=== PATIENT | male | born 1930 | race Caucasian/White ===

== ENCOUNTER 2018-06-26 10:18 | Outpatient (CLI) | payer MEDICARE ==
--- NOTE | 2018-06-26 11:24 | SJPRAD ---
PA AND LATERAL CHEST: History: Cough, shortness of breath. Comparison: 11-04-14 FINDINGS/IMPRESSION: The heart is enlarged. The aorta is tortuous. There is consolidation in the left lower lobe with acco mpanying bilateral pleural effusions, left larger than right. No pneumothoraces are seen. POS: OFF
[2018-06-26 16:15] LABS: #Lymphocytes 0.9 thou/uL (1.20-3.40); #Monocytes 0.4 thou/uL (0.11-0.59); #Neutrophils 4.3 thou/uL (1.40-6.50); %Basophils 0.8 % (0.0-1.0); %Eosinophils 0.6 % (0.0-10.0); %Lymphocytes 16.3 % (21.0-51.0); %Monocytes 7.3 % (0.0-10.0); Hemoglobin 12.9 g/dL (14.0-18.0); Mean Corpuscular HGB CONC 30.6 g/dL (32.0-36.0); Mean Corpuscular Hemoglobin 30.2 pg (27.0-31.0); Mean Corpuscular Volume 98.6 fL (78.0-98.0); Mean Platelet Volume 7.9 fL (7.4-10.4); Platelet Count 266 thou/uL (130-400); RBC Distribution Width 13.1 % (11.5-14.5); Red Blood Cell (RBC) Count 4.28 mill/uL (4.70-6.10); White Blood Cell (WBC) Count 5.7 thou/uL (4.8-10.8)
[2018-06-26 16:34] LABS: ALT (SGPT) 14 U/L (8-55); AST (SGOT) 27 U/L (5-34); Albumin 4.1 g/dL (3.4-4.8); Alkaline Phosphatase 162 U/L (40-150); Anion Gap 13 mmol/L (10-20); BUN (Urea Nitrogen) 9 mg/dL (8.4-25.7); Bilirubin, Total 0.6 mg/dL (0.2-1.2); Calc. Creatinine Clearance 0 mL/min (70-130); Calcium 9.5 mg/dL (7.8-10.44); Carbon Dioxide 31 mmol/L (23-31); Chloride 97 mmol/L (98-107); Estimated GFR-MDRD 81; Globulin 3.5 g/dL (2.4-3.5); Glucose 93 mg/dL (83-110); Potassium 4.3 mmol/L (3.5-5.1); Protein, Total 7.6 g/dL (5.8-8.1); Sodium 137 mmol/L (136-145)
== END 2018-06-26 10:19 | disposition home or self-care (01) ==
LOC: MWLC RAD 10:18
PROVIDERS: ATTEND Family Medicine
DX: R05 Cough (principal); R06.02 Shortness of breath; I51.7 Cardiomegaly; Q25.46 Tortuous aortic arch; J90 Pleural effusion, not elsewhere classified
CPT/HCPCS: 80053; 83880; 85025

== ENCOUNTER 2018-08-28 09:32 | Inpatient (IN) | payer MEDICARE ==
[~2018-08-28 09:32] MED LIST: ISOVUE-370 76%-LOCM 1 ML ONE
[2018-08-28 10:11] LABS: #Eosinphils 0.1 thou/uL (0.0-0.7); #Monocytes 0.6 thou/uL (0.11-0.59); %Basophils 0.3 % (0.0-1.0); %Eosinophils 1.7 % (0.0-10.0); %Lymphocytes 15.4 % (21.0-51.0); %Monocytes 8.8 % (0.0-10.0); %Neutrophils 73.9 % (42.0-75.0); Hemoglobin 12.8 g/dL (14.0-18.0); Mean Corpuscular HGB CONC 32.7 g/dL (32.0-36.0); Mean Corpuscular Hemoglobin 30.5 pg (27.0-31.0); Mean Corpuscular Volume 93.3 fL (78.0-98.0); Mean Platelet Volume 7.6 fL (7.4-10.4); Platelet Count 244 thou/uL (130-400); RBC Distribution Width 13.1 % (11.5-14.5); Red Blood Cell (RBC) Count 4.21 mill/uL (4.70-6.10); White Blood Cell (WBC) Count 6.8 thou/uL (4.8-10.8)
[2018-08-28] MEDS ORDERED: HYDROcodone/Acetaminophen 7.5/325 mg Tablet ONE ×2 (10:25→10:31)
[2018-08-28 10:37] LABS: ALT (SGPT) 14 U/L (8-55); AST (SGOT) 32 U/L (5-34); Alkaline Phosphatase 159 U/L (40-150); Anion Gap 14 mmol/L (10-20); BUN (Urea Nitrogen) 13 mg/dL (8.4-25.7); Calc. Creatinine Clearance 0 mL/min (70-130); Calcium 9.9 mg/dL (7.8-10.44); Carbon Dioxide 31 mmol/L (23-31); Chloride 96 mmol/L (98-107); Estimated GFR-MDRD 81; Globulin 3.8 g/dL (2.4-3.5); Glucose 86 mg/dL (83-110); Potassium 4.8 mmol/L (3.5-5.1); Protein, Total 7.8 g/dL (5.8-8.1); Sodium 136 mmol/L (136-145)
[2018-08-28 10:51] LABS: CKMB 3.6 ng/mL (0-6.6)
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
[2018-08-28 13:48] LABS: Troponin I 0.038 ng/mL (< 0.028)
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
[2018-08-28 16:33] LABS: Troponin I 0.045 ng/mL (< 0.028)
[2018-08-28] MEDS ORDERED: Nitroglycerin 0.4 MG TAB (25 Tab Bottle) PO PRN (18:39)
--- NOTE | 2018-08-28 22:50 | ULT ---
CAROTID DOPPLER: Date: 08/28/18 Ultrasound Doppler study is performed on extracranial carotid arteries. Color Doppler with spectral a nalysis and velocity recordings obtained. INDICATION: Syncope. Blackout. FINDINGS: Ultrasound images show echogenic plaque in both extracranial carotid systems. Velocity records are wi thin normal range. No evidence of hemodynamically significant stenosis identified. The vertebrals are not identified. IMPRESSION: Echogenic plaque seen bilaterally. No evidence of hemodynamically significant stenosis identified. POS: [facility]
[2018-08-29] MEDS: traMADol HCl 50 MG TAB PO PRN ×2 (00:37→22:37)
[2018-08-29] MEDS ORDERED: Aspirin 325 mg Enteric Coated Tablet PO SCH (09:00)
[2018-08-29] MEDS: Rosuvastatin 10 MG TAB PO SCH (11:27)
[2018-08-29] MEDS: Amlodipine 5 MG TAB PO SCH (11:27)
[2018-08-29] MEDS: Aspirin 81 mg Enteric Coated Tablet PO SCH (11:28)
[2018-08-29] MEDS: Tamsulosin HCl 0.4 MG CAP PO SCH (11:28)
[2018-08-29] MEDS: Lisinopril 20 MG TAB PO SCH (11:28)
[2018-08-29 11:43] LABS: #Eosinphils 0.1 thou/uL (0.0-0.7); #Lymphocytes 1.1 thou/uL (1.20-3.40); #Monocytes 0.6 thou/uL (0.11-0.59); %Basophils 0.1 % (0.0-1.0); %Eosinophils 1.8 % (0.0-10.0); %Lymphocytes 16.3 % (21.0-51.0); %Monocytes 8.8 % (0.0-10.0); Mean Corpuscular HGB CONC 32.3 g/dL (32.0-36.0); Mean Corpuscular Hemoglobin 30.2 pg (27.0-31.0); Mean Corpuscular Volume 93.4 fL (78.0-98.0); Mean Platelet Volume 7.5 fL (7.4-10.4); Platelet Count 231 thou/uL (130-400); RBC Distribution Width 13.1 % (11.5-14.5); Red Blood Cell (RBC) Count 4.31 mill/uL (4.70-6.10); White Blood Cell (WBC) Count 6.9 thou/uL (4.8-10.8)
[2018-08-29 11:56] LABS: Anion Gap 13 mmol/L (10-20); BUN (Urea Nitrogen) 13 mg/dL (8.4-25.7); Calc. Creatinine Clearance 70 mL/min (70-130); Calcium 9.6 mg/dL (7.8-10.44); Carbon Dioxide 28 mmol/L (23-31); Chloride 95 mmol/L (98-107); Estimated GFR-MDRD 85; Glucose 108 mg/dL (83-110); Potassium 3.7 mmol/L (3.5-5.1); Sodium 132 mmol/L (136-145)
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
--- NOTE | 2018-08-29 15:04 | PDOC.PN ---
- Subjective Encounter Start Date: 08/29/18 Encounter Start Time: 15:02 Patient lying in bed, he states he is feeling better this morning. He denies chest pain, palpitations, shortness of breath or abdominal pain. He remains with hematoma of right knee and acute on chronic patella fracture. He refused stress test, therefore Dr Leija was consulted for evaluation and recommendations. - Objective Resuscitation Status - Order Detail: 08/28/18 13:30 Resuscitation Status Routine Resuscitation Status: FULL: Full Resuscitation Discussed with: patient MAR Reviewed: Yes Vital Signs & Weight: Vital Signs (12 hours) Temp Pulse Pulse Pulse Resp BP BP 08/29/18 13:06 69 82 146/70 H 08/29/18 12:34 78 18 08/29/18 11:28 136/89 08/29/18 11:27 65 08/29/18 06:50 65 18 08/29/18 03:21 97.8 F 66 20 BP BP Pulse Ox 08/29/18 13:06 184/79 H 08/29/18 12:34 90 L 08/29/18 11:28 08/29/18 11:27 08/29/18 06:50 93 L 08/29/18 03:21 130/63 97 Weight Weight 182 lb 6.4 oz Result Diagrams: 08/29/18 11:15 08/29/18 11:15 Radiology Reviewed by me: Yes Phys Exam - Physical Examination HEENT: moist MMs, oral pharynx no lesions Neck: supple Coarse breath sounds heard bilaterally Cardiovascular: RRR, no rub Gastrointestinal: soft, positive bowel sounds Musculoskeletal: pulses present Edema and hematoma noted right knee with tenderness to palpation. Neurological: normal sensation, moves all 4 limbs Psychiatric: normal affect, A&O x 3 Skin: normal turgor Dx/Plan (1) Atypical chest pain Code(s): R07.89 - OTHER CHEST PAIN Status: Acute (2) Right patella fracture Code(s): S82.001A - UNSP FRACTURE OF RIGHT PATELLA, INIT FOR CLOS FX Status: Acute (3) CAD (coronary artery disease) Code(s): I25.10 - ATHSCL HEART DISEASE OF [place] CORONARY ARTERY W/O ANG PCTRS Status: Acute (4) COPD (chronic obstructive pulmonary disease) Status: Acute (5) HTN (hypertension) Code(s): I10 - ESSENTIAL (PRIMARY) HYPERTENSION Status: Acute (6) Afib Code(s): I48.91 - UNSPECIFIED ATRIAL FIBRILLATION Status: Acute - Plan cont current plan of care, PT/OT * Cardiology and ortho following * Patient may be weight bearing as tolerated with straight leg brace * PT/OT recommending rehab, he is willing to go rehab screen placed * Eliquis on hold due to hematoma, likely hold for 48 hours * Chest pain atypical and likely musculoskeletal per cardiology, therefore stress test cancelled as patient refusing * Continue other home medications * Further disposition pending at this time, SNF vs with PT/OT
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
[2018-08-30] MEDS: Aspirin 81 mg Enteric Coated Tablet PO SCH (09:15)
[2018-08-30] MEDS: Tamsulosin HCl 0.4 MG CAP PO SCH (09:15)
[2018-08-30] MEDS: Amlodipine 5 MG TAB PO SCH (09:15)
[2018-08-30] MEDS: Rosuvastatin 10 MG TAB PO SCH (09:15)
[2018-08-30] MEDS: Lisinopril 20 MG TAB PO SCH (09:15)
[2018-08-30] MEDS: traMADol HCl 50 MG TAB PO PRN (11:03)
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
--- NOTE | 2018-08-30 13:35 | RAD ---
EXAM: Single view of the chest HISTORY: Chest pain; shortness of breath COMPARISON: 08/28/2018 FINDINGS: Single view of the chest shows an enlarged but stable cardiomediastinal silhouette. Athero sclerotic calcifications are seen in the aorta. There is no evidence of consolidation, mass, or pleural effusion. The bones are unremarkable. IMPRESSION: Cardiomegaly without evidence of acute cardiopulmonary disease
[2018-08-30 16:47] LABS: Troponin I 0.026 ng/mL (< 0.028)
[2018-08-30 19:55] LABS: Troponin I 0.036 ng/mL (< 0.028)
[2018-08-30] MEDS: guaiFENesin/DM ER PO SCH (20:16)
[2018-08-31] MEDS: traMADol HCl 50 MG TAB PO PRN ×2 (04:19→12:03)
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
[2018-08-31] MEDS: guaiFENesin/DM ER PO SCH ×2 (09:53→20:48)
[2018-08-31] MEDS: Tamsulosin HCl 0.4 MG CAP PO SCH (09:53)
[2018-08-31] MEDS: Lisinopril 20 MG TAB PO SCH (09:54)
[2018-08-31] MEDS: Rosuvastatin 10 MG TAB PO SCH (09:54)
[2018-08-31] MEDS: Amlodipine 5 MG TAB PO SCH (09:55)
[2018-08-31] MEDS: Aspirin 81 mg Enteric Coated Tablet PO SCH (09:55)
--- NOTE | 2018-08-31 10:51 | PRG ---
DATE OF SERVICE: 08/31/2018 SUBJECTIVE: Continuing to follow Mr. Razo for his knee hematoma. PHYSICAL EXAMINATION: He still has some bruising and a small blister directly over the patella, but it does not appear as tense as a couple of days ago. There has been no significant interval change from today since initial consultation. IMPRESSION: Acute patella fracture with subdermal hematoma, but intact extensor mechanism. PLAN: Continue long-leg immobilizer and continue to follow skin. Try not to rupture his blister at this point and allow for healing and we will see the patient back in clinic in 3 to 4 days from discharge and at regular intervals to followup his skin. No surgical plans at this point. Job ID: [id number]
[2018-08-31] MEDS: Apixaban 5 MG TAB PO SCH (20:48)
[2018-09-01] MEDS: Amlodipine 5 MG TAB PO SCH (08:23)
[2018-09-01] MEDS: Lisinopril 20 MG TAB PO SCH (08:24)
[2018-09-01] MEDS: Apixaban 5 MG TAB PO SCH ×2 (08:24→20:03)
[2018-09-01] MEDS: Tamsulosin HCl 0.4 MG CAP PO SCH (08:25)
[2018-09-01] MEDS: Aspirin 81 mg Enteric Coated Tablet PO SCH (08:25)
[2018-09-01] MEDS: guaiFENesin/DM ER PO SCH ×2 (08:25→20:03)
[2018-09-01] MEDS: Rosuvastatin 10 MG TAB PO SCH ×2 (08:31)
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
[2018-09-01] MEDS: traMADol HCl 50 MG TAB PO PRN (20:04)
[2018-09-02] MEDS: traMADol HCl 50 MG TAB PO PRN (00:57)
[2018-09-02 07:32] LABS: #Basophils 0.1 thou/uL (0.0-0.2); #Eosinphils 0.1 thou/uL (0.0-0.7); #Lymphocytes 0.7 thou/uL (1.20-3.40); #Monocytes 0.7 thou/uL (0.11-0.59); #Neutrophils 4.5 thou/uL (1.40-6.50); %Basophils 0.8 % (0.0-1.0); %Eosinophils 1.7 % (0.0-10.0); %Lymphocytes 11.5 % (21.0-51.0); Hemoglobin 11.9 g/dL (14.0-18.0); Mean Corpuscular HGB CONC 33.5 g/dL (32.0-36.0); Mean Corpuscular Hemoglobin 30.8 pg (27.0-31.0); Mean Platelet Volume 7.7 fL (7.4-10.4); Platelet Count 242 thou/uL (130-400); RBC Distribution Width 13.1 % (11.5-14.5); Red Blood Cell (RBC) Count 3.88 mill/uL (4.70-6.10); White Blood Cell (WBC) Count 6.1 thou/uL (4.8-10.8)
[2018-09-02 07:48] LABS: ALT (SGPT) 12 U/L (8-55); AST (SGOT) 26 U/L (5-34); Albumin 3.3 g/dL (3.4-4.8); Alkaline Phosphatase 160 U/L (40-150); Anion Gap 14 mmol/L (10-20); BUN (Urea Nitrogen) 19 mg/dL (8.4-25.7); Bilirubin, Total 0.9 mg/dL (0.2-1.2); Calc. Creatinine Clearance 75 mL/min (70-130); Calcium 9.1 mg/dL (7.8-10.44); Carbon Dioxide 25 mmol/L (23-31); Chloride 91 mmol/L (98-107); Estimated GFR-MDRD Greater than 90; Globulin 3.5 g/dL (2.4-3.5); Glucose 94 mg/dL (83-110); Magnesium 1.7 mg/dL (1.6-2.6); Phosphorus 3.4 mg/dL (2.3-4.7); Potassium 4.7 mmol/L (3.5-5.1); Protein, Total 6.8 g/dL (5.8-8.1); Sodium 125 mmol/L (136-145)
[2018-09-02] MEDS: Tamsulosin HCl 0.4 MG CAP PO SCH (09:25)
[2018-09-02] MEDS: Amlodipine 5 MG TAB PO SCH (09:25)
[2018-09-02] MEDS: Rosuvastatin 10 MG TAB PO SCH (09:26)
[2018-09-02] MEDS: Aspirin 81 mg Enteric Coated Tablet PO SCH (09:26)
[2018-09-02] MEDS: Apixaban 5 MG TAB PO SCH ×2 (09:26→22:45)
[2018-09-02] MEDS: Lisinopril 20 MG TAB PO SCH (09:26)
[2018-09-02] MEDS: guaiFENesin/DM ER PO SCH ×2 (09:26→22:45)
[2018-09-02 11:08] LABS: Bilirubin Negative (Negative); Blood, Urine Moderate (Negative); Clarity TURBID (Clear); Glucose, Urine (Dipstick) Negative (Negative); Leukocyte Large (Negative); Nitrite Negative (Negative); Protein, Urine (Dipstick) Negative (Neg-Trace); Specific Gravity, Urine 1.015 (1.002-1.036); pH, Urine 5.5 (5.0-9.0)
[2018-09-02 11:11] LABS: Bacteria/HPF 4+ HPF (None Seen); Hyaline Casts/LPF 0-3 HYALINE CAST LPF (0-3 Hyaline); Pathc Cast-AUWi Flag 0.68 (0-2.49); Squamous Epithelial None Seen HPF (0-3)
--- NOTE | 2018-09-02 11:30 | PDOC.PN ---
- Subjective Encounter Start Date: 09/02/18 Encounter Start Time: 09:30 Subjective: no sob or palpitations -: knee pain is better - Objective Resuscitation Status - Order Detail: 08/28/18 13:30 Resuscitation Status Routine Resuscitation Status: FULL: Full Resuscitation Discussed with: ying LIZAMA Reviewed: Yes Vital Signs & Weight: Vital Signs (12 hours) Temp Pulse Resp BP BP Pulse Ox 09/02/18 09:26 111/59 L 09/02/18 09:25 71 09/02/18 08:00 71 16 09/02/18 07:50 97.7 F 82 18 135/63 92 L 09/02/18 03:19 98.0 F 71 20 117/56 L 92 L 09/02/18 00:55 84 20 92 L Weight Weight 184 lb 1 oz I&O: 09/01/18 09/02/18 09/03/18 06:59 06:59 06:59 Intake Total 1560 1200 Output Total 1050 850 Balance 510 350 Result Diagrams: 09/02/18 07:03 09/02/18 07:03 Phys Exam - Physical Examination HEENT: PERRLA, moist MMs Neck: no JVD, supple Respiratory: no wheezing rales+ Cardiovascular: no significant murmur, irregular Gastrointestinal: soft, non-tender, positive bowel sounds Musculoskeletal: pulses present, edema present Neurological: non-focal, moves all 4 limbs Psychiatric: A&O x 3 Dx/Plan (1) Hyponatremia Code(s): E87.1 - HYPO-OSMOLALITY AND HYPONATREMIA Status: Acute (2) Afib Code(s): I48.91 - UNSPECIFIED ATRIAL FIBRILLATION Status: Chronic Qualifiers: Atrial fibrillation type: chronic Qualified Code(s): I48.2 - Chronic atrial fibrillation (3) CAD (coronary artery disease) Code(s): I25.10 - ATHSCL HEART DISEASE OF [place] CORONARY ARTERY W/O ANG PCTRS Status: Chronic Qualifiers: Coronary Disease-Associated Artery/Lesion type: [place] artery [place] vs. transplanted heart: [place] heart Associated angina: without angina Qualified Code(s): I25.10 - Atherosclerotic heart disease of [place] coronary artery without angina pectoris (4) COPD (chronic obstructive pulmonary disease) Status: Chronic Qualifiers: COPD type: unspecified COPD Qualified Code(s): J44.9 - Chronic obstructive pulmonary disease, unspecified (5) HTN (hypertension) Code(s): I10 - ESSENTIAL (PRIMARY) HYPERTENSION Status: Chronic Qualifiers: Hypertension type: essential hypertension Qualified Code(s): I10 - Essential (primary) hypertension (6) Right patella fracture Code(s): S82.001A - UNSP FRACTURE OF RIGHT PATELLA, INIT FOR CLOS FX Status: Acute Qualifiers: Encounter type: subsequent encounter Fracture type: closed (7) Chronic anticoagulation Code(s): Z79.01 - PETAL SHAPER HAND (CURRENT) USE OF ANTICOAGULANTS Status: Chronic - Plan has heart rates dip down to 40's, made aware, no intervention -: to mobilize per ortho advice -: on asp, eliquis, crestor, nebs, change lisinopril to 10mg bid -: add lasix for vol overload and hypnatremia, bmp in am -: restrict oral fluid intake to 1200ml/day * . await rehab placement, suggest ?swing bed if ok with ortho. Review of Systems - Medications/Allergies Allergies/Adverse Reactions: Allergies Allergy/AdvReac Type Severity Reaction Status Date / Time No Known Allergies Allergy Unverified 08/28/18 16:56 Medications: Current Medications Albuterol/Ipratropium (Duoneb) 3 ml NEB [id number] [facility] Last Admin: 09/02/18 08:00 Dose: 3 ml Amlodipine Besylate (Norvasc) 5 mg PO DAILY [facility] Last Admin: 09/02/18 09:25 Dose: 5 mg Apixaban (Eliquis) 5 mg PO BID [facility] Last Admin: 09/02/18 09:26 Dose: 5 mg Aspirin (Ecotrin) 81 mg PO DAILY [facility] Last Admin: 09/02/18 09:26 Dose: 81 mg Furosemide (Lasix) 20 mg SLOW IVP 0600,1400 [facility] Guaifenesin/Dextromethorphan (Mucinex Dm) 1 tab PO Q12HR [facility] Last Admin: 09/02/18 09:26 Dose: 1 tab Lisinopril (Zestril) 10 mg PO BID [facility] Nitroglycerin (Nitrostat) 0.4 mg PO Q5MIN PRN PRN Reason: Chest Pain Rosuvastatin Calcium (Crestor) 10 mg PO DAILY [facility] Last Admin: 09/02/18 09:26 Dose: 10 mg Sodium Chloride (Flush - Normal Saline) 10 ml IVF Q12HR [facility] Last Admin: 09/02/18 09:27 Dose: 10 ml Tamsulosin HCl (Flomax) 0.4 mg PO DAILY [facility] Last Admin: 09/02/18 09:25 Dose: 0.4 mg Tramadol HCl (Ultram) 50 mg PO Q4H PRN PRN Reason: Pain Last Admin: 09/02/18 00:57 Dose: 50 mg
[2018-09-02] MEDS: Furosemide 20 MG/2 ML VIAL SLOW IVP SCH (16:07)
[2018-09-02] MEDS ORDERED: Lisinopril 10 MG TAB PO SCH (21:00)
[2018-09-03] MEDS: traMADol HCl 50 MG TAB PO PRN (02:44)
[2018-09-03 05:28] LABS: Anion Gap 10 mmol/L (10-20); BUN (Urea Nitrogen) 19 mg/dL (8.4-25.7); Calc. Creatinine Clearance 74 mL/min (70-130); Calcium 9.3 mg/dL (7.8-10.44); Carbon Dioxide 29 mmol/L (23-31); Chloride 89 mmol/L (98-107); Estimated GFR-MDRD 89; Glucose 110 mg/dL (83-110); Potassium 4.3 mmol/L (3.5-5.1); Sodium 124 mmol/L (136-145)
[2018-09-03] MEDS: Furosemide 20 MG/2 ML VIAL SLOW IVP SCH (06:57)
[2018-09-03] MEDS: Tamsulosin HCl 0.4 MG CAP PO SCH (10:00)
[2018-09-03] MEDS: Apixaban 5 MG TAB PO SCH ×2 (10:00→21:23)
[2018-09-03] MEDS: Rosuvastatin 10 MG TAB PO SCH (10:00)
[2018-09-03] MEDS: guaiFENesin/DM ER PO SCH ×2 (10:00→21:23)
[2018-09-03] MEDS: Aspirin 81 mg Enteric Coated Tablet PO SCH (10:00)
[2018-09-03] MEDS: Amlodipine 5 MG TAB PO SCH (10:01)
[2018-09-03] MEDS: Lisinopril 5 MG TAB PO SCH (10:03)
--- NOTE | 2018-09-03 13:59 | PDOC.PN ---
- Subjective Encounter Start Date: 09/03/18 Encounter Start Time: 09:20 Subjective: awake, no sob or palp -: wants to stay around [facility] if possible for placement - Objective Resuscitation Status - Order Detail: 08/28/18 13:30 Resuscitation Status Routine Resuscitation Status: FULL: Full Resuscitation Discussed with: patient DL Reviewed: Yes Vital Signs & Weight: Vital Signs (12 hours) Temp Pulse Resp BP BP Pulse Ox 09/03/18 10:26 95 09/03/18 10:25 96 16 09/03/18 10:03 61 127/60 09/03/18 10:01 64 127/60 09/03/18 07:45 97.2 F L 69 18 123/62 97 09/03/18 03:47 97.4 F L 71 20 125/60 94 L Weight Weight 186 lb 11.2 oz I&O: 09/02/18 09/03/18 09/04/18 06:59 06:59 06:59 Intake Total 1200 1180 Output Total 850 3075 Balance 350 -1895 Result Diagrams: 09/02/18 07:03 09/03/18 04:43 Phys Exam - Physical Examination HEENT: PERRLA, moist MMs Neck: no JVD, supple Respiratory: no wheezing, no rales Cardiovascular: no significant murmur, irregular Gastrointestinal: soft, no distention, positive bowel sounds Musculoskeletal: pulses present, edema present Neurological: non-focal, moves all 4 limbs Psychiatric: normal affect, A&O x 3 Dx/Plan (1) Hyponatremia Code(s): E87.1 - HYPO-OSMOLALITY AND HYPONATREMIA Status: Acute (2) Afib Code(s): I48.91 - UNSPECIFIED ATRIAL FIBRILLATION Status: Chronic Qualifiers: Atrial fibrillation type: chronic Qualified Code(s): I48.2 - Chronic atrial fibrillation (3) CAD (coronary artery disease) Code(s): I25.10 - ATHSCL HEART DISEASE OF [place] CORONARY ARTERY W/O ANG PCTRS Status: Chronic Qualifiers: Coronary Disease-Associated Artery/Lesion type: [place] artery [place] vs. transplanted heart: [place] heart Associated angina: without angina Qualified Code(s): I25.10 - Atherosclerotic heart disease of [place] coronary artery without angina pectoris (4) COPD (chronic obstructive pulmonary disease) Status: Chronic Qualifiers: COPD type: unspecified COPD Qualified Code(s): J44.9 - Chronic obstructive pulmonary disease, unspecified (5) HTN (hypertension) Code(s): I10 - ESSENTIAL (PRIMARY) HYPERTENSION Status: Chronic Qualifiers: Hypertension type: essential hypertension Qualified Code(s): I10 - Essential (primary) hypertension (6) Right patella fracture Code(s): S82.001A - UNSP FRACTURE OF RIGHT PATELLA, INIT FOR CLOS FX Status: Acute Qualifiers: Encounter type: subsequent encounter Fracture type: closed (7) Chronic anticoagulation Code(s): Z79.01 - 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 Has diuresed well last 24hrs around 3lts -: continue asp, lisinopril, norvasc, eliquis, crestor and nebs -: awaiting placement ?rehab, I have suggested swing bed he will think about i -: meds are being optimized by cardiology * . Review of Systems - Medications/Allergies Allergies/Adverse Reactions: Allergies Allergy/AdvReac Type Severity Reaction Status Date / Time No Known Allergies Allergy Unverified 08/28/18 16:56 Medications: Current Medications Albuterol/Ipratropium (Duoneb) 3 ml NEB [id number] [facility] Last Admin: 09/03/18 10:25 Dose: 3 ml Amlodipine Besylate (Norvasc) 5 mg PO DAILY [facility] Last Admin: 09/03/18 10:01 Dose: 5 mg Apixaban (Eliquis) 5 mg PO BID [facility] Last Admin: 09/03/18 10:00 Dose: 5 mg Aspirin (Ecotrin) 81 mg PO DAILY [facility] Last Admin: 09/03/18 10:00 Dose: 81 mg Guaifenesin/Dextromethorphan (Mucinex Dm) 1 tab PO Q12HR [facility] Last Admin: 09/03/18 10:00 Dose: 1 tab Lisinopril (Zestril) 5 mg PO DAILY [facility] Last Admin: 09/03/18 10:03 Dose: 5 mg Nitroglycerin (Nitrostat) 0.4 mg PO Q5MIN PRN PRN Reason: Chest Pain Rosuvastatin Calcium (Crestor) 10 mg PO DAILY [facility] Last Admin: 09/03/18 10:00 Dose: 10 mg Sodium Chloride (Flush - Normal Saline) 10 ml IVF Q12HR [facility] Last Admin: 09/02/18 22:45 Dose: 10 ml Tamsulosin HCl (Flomax) 0.4 mg PO DAILY [facility] Last Admin: 09/03/18 10:00 Dose: 0.4 mg Tramadol HCl (Ultram) 50 mg PO Q4H PRN PRN Reason: Pain Last Admin: 09/03/18 02:44 Dose: 50 mg
[2018-09-03 14:54] LABS: Anion Gap 11 mmol/L (10-20); BUN (Urea Nitrogen) 19 mg/dL (8.4-25.7); Calc. Creatinine Clearance 71 mL/min (70-130); Calcium 9.6 mg/dL (7.8-10.44); Carbon Dioxide 32 mmol/L (23-31); Chloride 87 mmol/L (98-107); Estimated GFR-MDRD 84; Glucose 110 mg/dL (83-110); Potassium 4.6 mmol/L (3.5-5.1); Sodium 125 mmol/L (136-145)
[2018-09-03 14:55] LABS: Uric Acid 4.5 mg/dL (3.5-7.2)
[2018-09-03 20:44] LABS: Anion Gap 12 mmol/L (10-20); BUN (Urea Nitrogen) 19 mg/dL (8.4-25.7); Calc. Creatinine Clearance 76 mL/min (70-130); Calcium 9.3 mg/dL (7.8-10.44); Carbon Dioxide 30 mmol/L (23-31); Chloride 87 mmol/L (98-107); Estimated GFR-MDRD 90; Glucose 109 mg/dL (83-110); Potassium 4.4 mmol/L (3.5-5.1); Sodium 125 mmol/L (136-145)
--- NOTE | 2018-09-03 21:04 | CON ---
DATE OF CONSULTATION: REASON FOR CONSULTATION: Hyponatremia. HISTORY: This is a very pleasant 88-year-old gentleman who has , presented to the hospital with sodium of 132, which decreased to 124. The patient denies headache, numbness, tingling, or weakness. Denies any nausea, vomiting, or chest pain. PAST MEDICAL HISTORY: Significant for hypertension, anemia, coronary artery disease, atrial fibrillation, PCI, COPD, and chronic anticoagulation. HOME MEDICATIONS: List reviewed. HOSPITAL MEDICATIONS: List reviewed. ALLERGIES: REVIEWED. REVIEW OF SYSTEMS: A 15-point review of systems was performed and negative except as noted above. GENERAL: HEAD: NECK: No swelling or lumps. NOSE: No epistaxis or discharge. EYES: No diplopia or pain. 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 NEUROPSYCHIATIC SYSTEMS: No suicidal ideation. No ideation. SKIN: Denies any rash or ulcer. CONSTITUTIONAL: No fever or chills. PHYSICAL EXAMINATION: GENERAL: The patient is awake and alert. VITAL SIGNS: Afebrile, pulse 75, breathing 16, blood pressure 127/62. GENERAL APPEARANCE AND MENTAL STATUS: Fair. HEAD/NECK: Normocephalic. Atraumatic. EYES: EOMI. No deformity. EARS: Clear. No ulcers. NOSE: Intact. No lesions. MOUTH: Clear. No discharge. THROAT: Clear. No exudate. LUNGS: Clear. No crackles. CARDIAC: S1, S2. No rub. ABDOMEN: Benign. Bowel sounds positive. GENITALIA/RECTUM: Rubio absent. BACK/EXTREMITIES: Edema 0+. NEUROLOGICAL: Alert and motor intact. SKIN: LYMPHATICS: LABORATORY DATA: Show sodium 134, creatinine 0.8. ASSESSMENT/RECOMMENDATIONS: 1. Chronic kidney disease stage 2, stable. 2. 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 We would recommend 800 mL fluid restriction and checking sodium at 1600 hours. 3. Anemia, stable. 4. Hypo-osmolality with elevated labs. Job ID: [id number]
[2018-09-04 07:33] LABS: Potassium, Urine 23.7 mmol/L
[2018-09-04 08:28] LABS: Anion Gap 13 mmol/L (10-20); BUN (Urea Nitrogen) 19 mg/dL (8.4-25.7); Calc. Creatinine Clearance 78 mL/min (70-130); Calcium 8.9 mg/dL (7.8-10.44); Carbon Dioxide 27 mmol/L (23-31); Chloride 90 mmol/L (98-107); Estimated GFR-MDRD Greater than 90; Glucose 92 mg/dL (83-110); Potassium 4.8 mmol/L (3.5-5.1); Sodium 125 mmol/L (136-145)
[2018-09-04] MEDS: traMADol HCl 50 MG TAB PO PRN ×3 (09:25→21:17)
[2018-09-04] MEDS: Apixaban 5 MG TAB PO SCH ×2 (09:25→20:49)
[2018-09-04] MEDS: Lisinopril 5 MG TAB PO SCH (09:25)
[2018-09-04] MEDS: Tamsulosin HCl 0.4 MG CAP PO SCH (09:25)
[2018-09-04] MEDS: guaiFENesin/DM ER PO SCH ×2 (09:25→20:49)
[2018-09-04] MEDS: Rosuvastatin 10 MG TAB PO SCH (09:25)
[2018-09-04] MEDS: Aspirin 81 mg Enteric Coated Tablet PO SCH (09:25)
[2018-09-04] MEDS: Amlodipine 5 MG TAB PO SCH (09:25)
--- NOTE | 2018-09-04 11:47 | PDOC.PN ---
- Subjective Encounter Start Date: 09/04/18 Encounter Start Time: 10:30 Subjective: has cough, no sob -: feels better, has not mobilized yet -: counselled to use spirometry - Objective Resuscitation Status - Order Detail: 08/28/18 13:30 Resuscitation Status Routine Resuscitation Status: FULL: Full Resuscitation Discussed with: patient DL Reviewed: Yes Vital Signs & Weight: Vital Signs (12 hours) Temp Pulse Resp BP Pulse Ox 09/04/18 09:25 75 09/04/18 08:00 75 16 90 L 09/04/18 07:45 97.8 F 81 18 145/87 H 98 09/04/18 04:00 98.4 F 84 18 122/58 L 93 L 09/04/18 00:00 80 94/50 L Weight Weight 186 lb 4.8 oz I&O: 09/03/18 09/04/18 09/05/18 06:59 06:59 06:59 Intake Total 1180 760 Output Total 3075 1000 Balance -1895 -240 Result Diagrams: 09/02/18 07:03 09/04/18 04:58 Phys Exam - Physical Examination HEENT: PERRLA, moist MMs Neck: no JVD, supple Respiratory: no wheezing, no rales Cardiovascular: no significant murmur, irregular Gastrointestinal: soft, non-tender, positive bowel sounds Musculoskeletal: pulses present, edema present Neurological: non-focal, moves all 4 limbs Psychiatric: A&O x 3 Dx/Plan (1) Hyponatremia Code(s): E87.1 - HYPO-OSMOLALITY AND HYPONATREMIA Status: Acute (2) Afib Code(s): I48.91 - UNSPECIFIED ATRIAL FIBRILLATION Status: Chronic Qualifiers: Atrial fibrillation type: chronic Qualified Code(s): I48.2 - Chronic atrial fibrillation (3) CAD (coronary artery disease) Code(s): I25.10 - ATHSCL HEART DISEASE OF [place] CORONARY ARTERY W/O ANG PCTRS Status: Chronic Qualifiers: Coronary Disease-Associated Artery/Lesion type: [place] artery [place] vs. transplanted heart: [place] heart Associated angina: without angina Qualified Code(s): I25.10 - Atherosclerotic heart disease of [place] coronary artery without angina pectoris (4) COPD (chronic obstructive pulmonary disease) Status: Chronic Qualifiers: COPD type: unspecified COPD Qualified Code(s): J44.9 - Chronic obstructive pulmonary disease, unspecified (5) HTN (hypertension) Code(s): I10 - ESSENTIAL (PRIMARY) HYPERTENSION Status: Chronic Qualifiers: Hypertension type: essential hypertension Qualified Code(s): I10 - Essential (primary) hypertension (6) Right patella fracture Code(s): S82.001A - UNSP FRACTURE OF RIGHT PATELLA, INIT FOR CLOS FX Status: Acute Qualifiers: Encounter type: subsequent encounter Fracture type: closed (7) Chronic anticoagulation Code(s): Z79.01 - PENITENTIARY (CURRENT) USE OF ANTICOAGULANTS Status: Chronic - Plan hemostable -: hyponatremia per nephrology adv, is on fluid restriction -: awaiting placement to rehab -: continue asp, eliquis, norvasc, lisinopril, nebs and crestor -: flomax, ultram prn. He needs to mobilize per ortho adv with PT * . Review of Systems - Medications/Allergies Allergies/Adverse Reactions: Allergies Allergy/AdvReac Type Severity Reaction Status Date / Time No Known Allergies Allergy Unverified 08/28/18 16:56 Medications: Current Medications Albuterol/Ipratropium (Duoneb) 3 ml NEB [id number] [facility] Last Admin: 09/04/18 08:00 Dose: 3 ml Amlodipine Besylate (Norvasc) 5 mg PO DAILY [facility] Last Admin: 09/04/18 09:25 Dose: 5 mg Apixaban (Eliquis) 5 mg PO BID [facility] Last Admin: 09/04/18 09:25 Dose: 5 mg Aspirin (Ecotrin) 81 mg PO DAILY [facility] Last Admin: 09/04/18 09:25 Dose: 81 mg Guaifenesin/Dextromethorphan (Mucinex Dm) 1 tab PO Q12HR [facility] Last Admin: 09/04/18 09:25 Dose: 1 tab Lisinopril (Zestril) 5 mg PO DAILY [facility] Last Admin: 09/04/18 09:25 Dose: 5 mg Nitroglycerin (Nitrostat) 0.4 mg PO Q5MIN PRN PRN Reason: Chest Pain Rosuvastatin Calcium (Crestor) 10 mg PO DAILY [facility] Last Admin: 09/04/18 09:25 Dose: 10 mg Sodium Chloride (Flush - Normal Saline) 10 ml IVF Q12HR [facility] Last Admin: 09/04/18 09:25 Dose: 10 ml Tamsulosin HCl (Flomax) 0.4 mg PO DAILY [facility] Last Admin: 09/04/18 09:25 Dose: 0.4 mg Tramadol HCl (Ultram) 50 mg PO Q4H PRN PRN Reason: Pain Last Admin: 09/04/18 09:25 Dose: 50 mg
--- NOTE | 2018-09-04 12:48 | PRG ---
DATE OF SERVICE: 09/04/2018 SUBJECTIVE: An 88-year-old gentleman, being seen for hyponatremia. The patient denies any nausea, vomiting, or chest pain. OBJECTIVE: CONSTITUTIONAL: The patient is awake and alert. VITAL SIGNS: Afebrile, pulse 75, breathing 16, and blood pressure 145 . GENERAL APPEARANCE AND MENTAL STATUS: Fair. HEAD/NECK: Normocephalic. Atraumatic. EYES: EOMI. No deformity. EARS: Clear. No ulcers. NOSE: Intact. No lesions. MOUTH: Clear. No discharge. THROAT: Clear. No exudate. LUNGS: Clear. No crackles. CARDIAC: S1, S2. No rub. ABDOMEN: Benign. Bowel sounds positive. GENITALIA/RECTUM: Rubio absent. BACK/EXTREMITIES: Edema 0+. NEUROLOGICAL: Alert and motor intact. SKIN: LYMPHATICS: LABORATORY DATA: Show hemoglobin . Sodium 125. 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 The patient's urine osmolality is still pending. We would recommend 800 mL fluid restriction and follow sodium closely. Job ID: [id number]
[2018-09-04 15:03] LABS: Anion Gap 12 mmol/L (10-20); BUN (Urea Nitrogen) 18 mg/dL (8.4-25.7); Calc. Creatinine Clearance 74 mL/min (70-130); Calcium 9.5 mg/dL (7.8-10.44); Carbon Dioxide 29 mmol/L (23-31); Chloride 88 mmol/L (98-107); Estimated GFR-MDRD 89; Glucose 112 mg/dL (83-110); Potassium 4.5 mmol/L (3.5-5.1); Sodium 124 mmol/L (136-145)
[2018-09-04] MEDS ORDERED: Tolvaptan 15 MG TAB PO SCH (17:45)
[2018-09-05] MEDS: guaiFENesin/DM ER PO SCH ×2 (08:44→21:53)
[2018-09-05] MEDS: Aspirin 81 mg Enteric Coated Tablet PO SCH (08:44)
[2018-09-05] MEDS: Apixaban 5 MG TAB PO SCH ×2 (08:44→21:53)
[2018-09-05] MEDS: Rosuvastatin 10 MG TAB PO SCH (08:44)
[2018-09-05] MEDS: Amlodipine 5 MG TAB PO SCH (08:50)
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
--- NOTE | 2018-09-05 12:11 | PDOC.PN ---
- Subjective Encounter Start Date: 09/05/18 Encounter Start Time: 09:30 Subjective: no chest pain or palp -: feels better -: worked with PT yesterday - Objective Resuscitation Status - Order Detail: 08/28/18 13:30 Resuscitation Status Routine Resuscitation Status: FULL: Full Resuscitation Discussed with: ying LIZAMA Reviewed: Yes Vital Signs & Weight: Vital Signs (12 hours) Temp Pulse Resp BP Pulse Ox 09/05/18 11:14 97.6 F 70 18 97/52 L 100 09/05/18 08:50 72 09/05/18 07:27 72 16 92 L 09/05/18 07:11 97.5 F L 70 18 100/52 L 93 L 09/05/18 04:05 97.7 F 71 18 120/68 97 Weight Weight 183 lb 12.8 oz I&O: 09/04/18 09/05/18 09/06/18 06:59 06:59 06:59 Intake Total 760 1160 Output Total 1000 2420 Balance -240 -1260 Result Diagrams: 09/02/18 07:03 09/04/18 14:11 Phys Exam - Physical Examination HEENT: PERRLA, moist MMs Neck: no JVD, supple Respiratory: no wheezing, no rales rhonchi+ Cardiovascular: RRR, no significant murmur Gastrointestinal: soft, non-tender, positive bowel sounds Musculoskeletal: no edema, pulses present Neurological: non-focal, moves all 4 limbs Dx/Plan (1) Hyponatremia Code(s): E87.1 - HYPO-OSMOLALITY AND HYPONATREMIA Status: Acute (2) Afib Code(s): I48.91 - UNSPECIFIED ATRIAL FIBRILLATION Status: Chronic Qualifiers: Atrial fibrillation type: chronic Qualified Code(s): I48.2 - Chronic atrial fibrillation (3) CAD (coronary artery disease) Code(s): I25.10 - ATHSCL HEART DISEASE OF [place] CORONARY ARTERY W/O ANG PCTRS Status: Chronic Qualifiers: Coronary Disease-Associated Artery/Lesion type: [place] artery [place] vs. transplanted heart: [place] heart Associated angina: without angina Qualified Code(s): I25.10 - Atherosclerotic heart disease of [place] coronary artery without angina pectoris (4) COPD (chronic obstructive pulmonary disease) Status: Chronic Qualifiers: COPD type: unspecified COPD Qualified Code(s): J44.9 - Chronic obstructive pulmonary disease, unspecified (5) HTN (hypertension) Code(s): I10 - ESSENTIAL (PRIMARY) HYPERTENSION Status: Chronic Qualifiers: Hypertension type: essential hypertension Qualified Code(s): I10 - Essential (primary) hypertension (6) Right patella fracture Code(s): S82.001A - UNSP FRACTURE OF RIGHT PATELLA, INIT FOR CLOS FX Status: Acute Qualifiers: Encounter type: subsequent encounter Fracture type: closed (7) Chronic anticoagulation Code(s): Z79.01 - ALF (CURRENT) USE OF ANTICOAGULANTS Status: Chronic - Plan awaiting placement, rehab has denied him, d/w case mgmt and patient -: to mobilize more with PT as tolerated -: continue norvasc, eliquis, asp, nebs, crestor -: is on fluid restriction, flomax at bedtime -: hemostable, watch for sbp * . Review of Systems - Medications/Allergies Allergies/Adverse Reactions: Allergies Allergy/AdvReac Type Severity Reaction Status Date / Time No Known Allergies Allergy Unverified 08/28/18 16:56 Medications: Current Medications Albuterol/Ipratropium (Duoneb) 3 ml NEB [id number] [facility] Last Admin: 09/05/18 07:27 Dose: 3 ml Amlodipine Besylate (Norvasc) 5 mg PO DAILY [facility] Last Admin: 09/05/18 08:50 Dose: 5 mg Apixaban (Eliquis) 5 mg PO BID [facility] Last Admin: 09/05/18 08:44 Dose: 5 mg Aspirin (Ecotrin) 81 mg PO DAILY [facility] Last Admin: 09/05/18 08:44 Dose: 81 mg Guaifenesin/Dextromethorphan (Mucinex Dm) 1 tab PO Q12HR [facility] Last Admin: 09/05/18 08:44 Dose: 1 tab Nitroglycerin (Nitrostat) 0.4 mg PO Q5MIN PRN PRN Reason: Chest Pain Rosuvastatin Calcium (Crestor) 10 mg PO DAILY [facility] Last Admin: 09/05/18 08:44 Dose: 10 mg Sodium Chloride (Flush - Normal Saline) 10 ml IVF Q12HR [facility] Last Admin: 09/05/18 10:48 Dose: 10 ml Tamsulosin HCl (Flomax) 0.4 mg PO HS [facility] Tramadol HCl (Ultram) 50 mg PO Q4H PRN PRN Reason: Pain Last Admin: 09/04/18 21:17 Dose: 50 mg
[2018-09-05 12:39] LABS: Anion Gap 11 mmol/L (10-20); BUN (Urea Nitrogen) 17 mg/dL (8.4-25.7); Calc. Creatinine Clearance 71 mL/min (70-130); Calcium 9.9 mg/dL (7.8-10.44); Carbon Dioxide 32 mmol/L (23-31); Chloride 92 mmol/L (98-107); Estimated GFR-MDRD 85; Glucose 101 mg/dL (83-110); Potassium 4.7 mmol/L (3.5-5.1); Sodium 130 mmol/L (136-145)
[2018-09-05] MEDS ORDERED: Bisacodyl 10 MG SUPP PR SCH (12:45)
--- NOTE | 2018-09-05 14:33 | PRG ---
DATE OF SERVICE: 09/05/2018 SUBJECTIVE: An 88-year-old gentleman, being seen for hyponatremia. The patient denies any nausea, vomiting, or chest pain. OBJECTIVE: See above. CONSTITUTIONAL: Awake, alert, in no acute distress. VITAL SIGNS: Afebrile. Pulse 68, breathing 16, and blood pressure 97/52. GENERAL APPEARANCE AND MENTAL STATUS: Fair. HEAD/NECK: Normocephalic. Atraumatic. EYES: EOMI. No deformity. EARS: Clear. No ulcers. NOSE: Intact. No lesions. MOUTH: Clear. No discharge. THROAT: Clear. No exudate. LUNGS: Clear. No crackles. CARDIAC: S1, S2. No rub. ABDOMEN: Benign. Bowel sounds positive. GENITALIA/RECTUM: Rubio absent. BACK/EXTREMITIES: Edema 0+. NEUROLOGICAL: Alert and motor intact. SKIN: LYMPHATICS: LABORATORY DATA: Show hemoglobin 11.9. Sodium 130. IMPRESSION: Hyponatremia, improved. SIADH, stable. Can stop fluid restriction. I will sign off on this patient. Please reconsult as needed. Job ID: [id number]
[2018-09-05] MEDS: Tamsulosin HCl 0.4 MG CAP PO SCH (21:54)
[2018-09-06 08:05] LABS: #Eosinphils 0.1 thou/uL (0.0-0.7); #Lymphocytes 0.7 thou/uL (1.20-3.40); #Monocytes 1.2 thou/uL (0.11-0.59); %Basophils 0.3 % (0.0-1.0); %Eosinophils 0.6 % (0.0-10.0); %Lymphocytes 7.1 % (21.0-51.0); %Monocytes 11.8 % (0.0-10.0); %Neutrophils 80.2 % (42.0-75.0); Hemoglobin 12.5 g/dL (14.0-18.0); Mean Corpuscular HGB CONC 33.1 g/dL (32.0-36.0); Mean Corpuscular Hemoglobin 30.5 pg (27.0-31.0); Mean Corpuscular Volume 92.4 fL (78.0-98.0); Mean Platelet Volume 7.2 fL (7.4-10.4); Platelet Count 329 thou/uL (130-400); RBC Distribution Width 12.9 % (11.5-14.5); White Blood Cell (WBC) Count 9.9 thou/uL (4.8-10.8)
[2018-09-06 08:23] LABS: Anion Gap 12 mmol/L (10-20); BUN (Urea Nitrogen) 22 mg/dL (8.4-25.7); Calc. Creatinine Clearance 65 mL/min (70-130); Calcium 9.6 mg/dL (7.8-10.44); Carbon Dioxide 28 mmol/L (23-31); Chloride 93 mmol/L (98-107); Estimated GFR-MDRD 82; Glucose 109 mg/dL (83-110); Potassium 4.9 mmol/L (3.5-5.1); Sodium 128 mmol/L (136-145)
[2018-09-06] MEDS: Apixaban 5 MG TAB PO SCH ×2 (09:34→20:14)
[2018-09-06] MEDS: Rosuvastatin 10 MG TAB PO SCH (09:34)
[2018-09-06] MEDS: Aspirin 81 mg Enteric Coated Tablet PO SCH (09:34)
[2018-09-06] MEDS: guaiFENesin/DM ER PO SCH ×2 (09:34→20:14)
[2018-09-06] MEDS: Amlodipine 5 MG TAB PO SCH (09:34)
--- NOTE | 2018-09-06 10:44 | PDOC.PN ---
- Subjective Encounter Start Date: 09/06/18 Encounter Start Time: 10:15 Subjective: no chest pain or sob or palp -: cough is better -: right knee pain is better - Objective Resuscitation Status - Order Detail: 08/28/18 13:30 Resuscitation Status Routine Resuscitation Status: FULL: Full Resuscitation Discussed with: patient DL Reviewed: Yes Vital Signs & Weight: Vital Signs (12 hours) Temp Pulse Resp BP BP Pulse Ox 09/06/18 09:34 72 113/68 09/06/18 07:31 98.2 F 72 16 113/68 99 09/06/18 06:44 79 16 97 09/06/18 05:01 97.7 F 74 20 118/62 92 L 09/06/18 00:41 16 09/06/18 00:37 97.8 F 70 20 107/68 94 L Weight Weight 175 lb 9.6 oz I&O: 09/05/18 09/06/18 09/07/18 06:59 06:59 06:59 Intake Total 1160 720 Output Total 2420 Balance -1260 720 Result Diagrams: 09/06/18 07:41 09/06/18 07:40 Phys Exam - Physical Examination HEENT: PERRLA, moist MMs Neck: no JVD, supple Respiratory: no wheezing, no rales rhonchi+ Cardiovascular: no significant murmur, irregular Gastrointestinal: soft, non-tender, positive bowel sounds Musculoskeletal: pulses present right knee in immobilizer Neurological: non-focal, moves all 4 limbs Psychiatric: A&O x 3 Dx/Plan (1) Hyponatremia Code(s): E87.1 - HYPO-OSMOLALITY AND HYPONATREMIA Status: Acute (2) Afib Code(s): I48.91 - UNSPECIFIED ATRIAL FIBRILLATION Status: Chronic Qualifiers: Atrial fibrillation type: chronic Qualified Code(s): I48.2 - Chronic atrial fibrillation (3) CAD (coronary artery disease) Code(s): I25.10 - ATHSCL HEART DISEASE OF [place] CORONARY ARTERY W/O ANG PCTRS Status: Chronic Qualifiers: Coronary Disease-Associated Artery/Lesion type: [place] artery [place] vs. transplanted heart: [place] heart Associated angina: without angina Qualified Code(s): I25.10 - Atherosclerotic heart disease of [place] coronary artery without angina pectoris (4) COPD (chronic obstructive pulmonary disease) Status: Chronic Qualifiers: COPD type: unspecified COPD Qualified Code(s): J44.9 - Chronic obstructive pulmonary disease, unspecified (5) HTN (hypertension) Code(s): I10 - ESSENTIAL (PRIMARY) HYPERTENSION Status: Chronic Qualifiers: Hypertension type: essential hypertension Qualified Code(s): I10 - Essential (primary) hypertension (6) Right patella fracture Code(s): S82.001A - UNSP FRACTURE OF RIGHT PATELLA, INIT FOR CLOS FX Status: Acute Qualifiers: Encounter type: subsequent encounter Fracture type: closed (7) Chronic anticoagulation Code(s): Z79.01 - USP (CURRENT) USE OF ANTICOAGULANTS Status: Chronic - Plan hyponatremia is holding up with fluid restriction -: continue asp, eliquis, lisinopril, norvasc and crestor -: ultram prn, flomax -: awaiting placement -: to mobilize with PT * . Review of Systems - Medications/Allergies Allergies/Adverse Reactions: Allergies Allergy/AdvReac Type Severity Reaction Status Date / Time No Known Allergies Allergy Unverified 08/28/18 16:56 Medications: Current Medications Albuterol/Ipratropium (Duoneb) 3 ml NEB [id number] [facility] Last Admin: 09/06/18 06:44 Dose: 3 ml Amlodipine Besylate (Norvasc) 5 mg PO DAILY [facility] Last Admin: 09/06/18 09:34 Dose: 5 mg Apixaban (Eliquis) 5 mg PO BID [facility] Last Admin: 09/06/18 09:34 Dose: 5 mg Aspirin (Ecotrin) 81 mg PO DAILY [facility] Last Admin: 09/06/18 09:34 Dose: 81 mg Guaifenesin/Dextromethorphan (Mucinex Dm) 1 tab PO Q12HR [facility] Last Admin: 09/06/18 09:34 Dose: 1 tab Nitroglycerin (Nitrostat) 0.4 mg PO Q5MIN PRN PRN Reason: Chest Pain Rosuvastatin Calcium (Crestor) 10 mg PO DAILY [facility] Last Admin: 09/06/18 09:34 Dose: 10 mg Sodium Chloride (Flush - Normal Saline) 10 ml IVF Q12HR [facility] Last Admin: 09/06/18 09:35 Dose: 10 ml Tamsulosin HCl (Flomax) 0.4 mg PO HS [facility] Last Admin: 09/05/18 21:54 Dose: 0.4 mg Tramadol HCl (Ultram) 50 mg PO Q4H PRN PRN Reason: Pain Last Admin: 09/04/18 21:17 Dose: 50 mg
--- NOTE | 2018-09-06 12:16 | PRG ---
DATE OF SERVICE: 09/06/2018 SUBJECTIVE: An 88-year-old gentleman, being seen for hyponatremia. The patient denies any nausea, vomiting, or chest pains. OBJECTIVE: CONSTITUTIONAL: The patient is awake and alert. VITAL SIGNS: Afebrile, pulse 92, breathing 16, blood pressure 113/68. GENERAL APPEARANCE AND MENTAL STATUS: Fair. HEAD/NECK: Normocephalic. Atraumatic. EYES: EOMI. No deformity. EARS: Clear. No ulcers. NOSE: Intact. No lesions. MOUTH: Clear. No discharge. THROAT: Clear. No exudate. LUNGS: Clear. No crackles. CARDIAC: S1, S2. No rub. ABDOMEN: Benign. Bowel sounds positive. GENITALIA/RECTUM: Rubio absent. BACK/EXTREMITIES: Edema 0+. NEUROLOGICAL: Alert and motor intact. SKIN: LYMPHATICS: LABORATORY DATA: Labs show sodium 128. ASSESSMENT AND PLAN: 1. Hyponatremia due to syndrome of inappropriate antidiuretic hormone secretion. We would recommend 800 mL fluid restriction. 2. Anemia, stable. 3. Medication based on GFR, appropriate. I will sign off on this patient. Please reconsult as needed. Job ID: [id number]
[2018-09-06 12:49] VITALS: BMI 25.9
[2018-09-06] MEDS ORDERED: Loperamide HCl 2 MG CAP PO SCH (18:45)
[2018-09-06] MEDS: Tamsulosin HCl 0.4 MG CAP PO SCH (20:14)
[2018-09-07 06:18] LABS: Anion Gap 15 mmol/L (10-20); BUN (Urea Nitrogen) 20 mg/dL (8.4-25.7); Calc. Creatinine Clearance 71 mL/min (70-130); Calcium 9.1 mg/dL (7.8-10.44); Carbon Dioxide 25 mmol/L (23-31); Chloride 94 mmol/L (98-107); Estimated GFR-MDRD Greater than 90; Glucose 87 mg/dL (83-110); Potassium 4.6 mmol/L (3.5-5.1); Sodium 129 mmol/L (136-145)
[2018-09-07] MEDS: guaiFENesin/DM ER PO SCH ×2 (09:16→20:23)
[2018-09-07] MEDS: Aspirin 81 mg Enteric Coated Tablet PO SCH (09:16)
[2018-09-07] MEDS: Rosuvastatin 10 MG TAB PO SCH (09:16)
[2018-09-07] MEDS: Apixaban 5 MG TAB PO SCH ×2 (09:16→20:22)
[2018-09-07] MEDS: Amlodipine 5 MG TAB PO SCH (15:15)
--- NOTE | 2018-09-07 18:29 | PDOC.PN ---
- Subjective Encounter Start Date: 09/07/18 Encounter Start Time: 09:00 Pt seen for followup re: hyponatremia. Says he feels okay, no complaints. - Objective Resuscitation Status - Order Detail: 08/28/18 13:30 Resuscitation Status Routine Resuscitation Status: FULL: Full Resuscitation Discussed with: patient Vital Signs & Weight: Vital Signs (12 hours) Temp Pulse Resp BP Pulse Ox 09/07/18 15:06 97.8 F 68 18 112/72 97 09/07/18 13:59 80 15 09/07/18 11:14 97.8 F 81 16 118/67 95 09/07/18 08:06 80 16 09/07/18 07:38 97.7 F 69 18 102/65 93 L Weight Admit Weight 182 lb 6.4 oz Weight 173 lb 12.8 oz I&O: 09/06/18 09/07/18 09/08/18 06:59 06:59 06:59 Intake Total 720 692 Output Total 1300 Balance 720 -608 Result Diagrams: 09/06/18 07:41 09/07/18 05:22 Phys Exam - Physical Examination Constitutional: NAD HEENT: moist MMs Neck: supple Respiratory: clear to auscultation bilateral S1, S2 irreg Gastrointestinal: soft Neurological: moves all 4 limbs Psychiatric: normal affect Dx/Plan (1) Hyponatremia Code(s): E87.1 - HYPO-OSMOLALITY AND HYPONATREMIA Status: Acute Comment: sodium improved to 129 today, continue fluid restriction (2) CAD (coronary artery disease) Code(s): I25.10 - ATHSCL HEART DISEASE OF [place] CORONARY ARTERY W/O ANG PCTRS Status: Chronic Qualifiers: Coronary Disease-Associated Artery/Lesion type: [place] artery [place] vs. transplanted heart: [place] heart Associated angina: without angina Qualified Code(s): I25.10 - Atherosclerotic heart disease of [place] coronary artery without angina pectoris Comment: stable (3) COPD (chronic obstructive pulmonary disease) Status: Chronic Qualifiers: COPD type: unspecified COPD Qualified Code(s): J44.9 - Chronic obstructive pulmonary disease, unspecified Comment: stable (4) HTN (hypertension) Code(s): I10 - ESSENTIAL (PRIMARY) HYPERTENSION Status: Chronic Qualifiers: Hypertension type: essential hypertension Qualified Code(s): I10 - Essential (primary) hypertension Comment: controlled (5) Chronic atrial fibrillation Code(s): I48.2 - CHRONIC ATRIAL FIBRILLATION Status: Chronic Comment: continue apixaban - Plan PT/OT, out of bed/ambulate * . acute on chronic right patellar fracture improving Review of Systems - Review of Systems Cardiovascular: negative: chest pain, palpitations, orthopnea, paroxysmal nocturnal dyspnea, edema, light headedness Gastrointestinal: negative: Nausea, Vomiting, Abdominal Pain, Diarrhea, Constipation, Melena, Hematochezia - Medications/Allergies Allergies/Adverse Reactions: Allergies Allergy/AdvReac Type Severity Reaction Status Date / Time No Known Allergies Allergy Unverified 08/28/18 16:56 Medications: Current Medications Albuterol/Ipratropium (Duoneb) 3 ml NEB [id number] [facility] Last Admin: 09/07/18 13:59 Dose: 3 ml Amlodipine Besylate (Norvasc) 5 mg PO DAILY [facility] Last Admin: 09/07/18 15:15 Dose: Not Given Apixaban (Eliquis) 5 mg PO BID [facility] Last Admin: 09/07/18 09:16 Dose: 5 mg Aspirin (Ecotrin) 81 mg PO DAILY [facility] Last Admin: 09/07/18 09:16 Dose: 81 mg Guaifenesin/Dextromethorphan (Mucinex Dm) 1 tab PO Q12HR [facility] Last Admin: 09/07/18 09:16 Dose: 1 tab Nitroglycerin (Nitrostat) 0.4 mg PO Q5MIN PRN PRN Reason: Chest Pain Rosuvastatin Calcium (Crestor) 10 mg PO DAILY [facility] Last Admin: 09/07/18 09:16 Dose: 10 mg Sodium Chloride (Flush - Normal Saline) 10 ml IVF Q12HR [facility] Last Admin: 09/07/18 09:16 Dose: 10 ml Tamsulosin HCl (Flomax) 0.4 mg PO HS [facility] Last Admin: 09/06/18 20:14 Dose: 0.4 mg Tramadol HCl (Ultram) 50 mg PO Q4H PRN PRN Reason: Pain Last Admin: 09/04/18 21:17 Dose: 50 mg
[2018-09-07] MEDS: Tamsulosin HCl 0.4 MG CAP PO SCH (20:22)
[2018-09-08 05:59] LABS: #Basophils 0.1 thou/uL (0.0-0.2); #Eosinphils 0.2 thou/uL (0.0-0.7); #Lymphocytes 1.3 thou/uL (1.20-3.40); #Monocytes 0.9 thou/uL (0.11-0.59); %Basophils 0.9 % (0.0-1.0); %Eosinophils 2.8 % (0.0-10.0); %Lymphocytes 16.8 % (21.0-51.0); %Monocytes 12.7 % (0.0-10.0); %Neutrophils 66.9 % (42.0-75.0); Hemoglobin 12.4 g/dL (14.0-18.0); Mean Corpuscular HGB CONC 32.6 g/dL (32.0-36.0); Mean Corpuscular Hemoglobin 30.6 pg (27.0-31.0); Mean Corpuscular Volume 93.7 fL (78.0-98.0); Platelet Count 340 thou/uL (130-400); RBC Distribution Width 13.2 % (11.5-14.5); Red Blood Cell (RBC) Count 4.06 mill/uL (4.70-6.10); White Blood Cell (WBC) Count 7.4 thou/uL (4.8-10.8)
[2018-09-08 06:22] LABS: Anion Gap 12 mmol/L (10-20); BUN (Urea Nitrogen) 23 mg/dL (8.4-25.7); Calc. Creatinine Clearance 70 mL/min (70-130); Calcium 9.1 mg/dL (7.8-10.44); Carbon Dioxide 26 mmol/L (23-31); Chloride 96 mmol/L (98-107); Estimated GFR-MDRD 90; Glucose 89 mg/dL (83-110); Potassium 4.3 mmol/L (3.5-5.1); Sodium 130 mmol/L (136-145)
[2018-09-08] MEDS: Rosuvastatin 10 MG TAB PO SCH (08:10)
[2018-09-08] MEDS: Apixaban 5 MG TAB PO SCH ×2 (08:10→20:31)
[2018-09-08] MEDS: Amlodipine 5 MG TAB PO SCH (08:10)
[2018-09-08] MEDS: guaiFENesin/DM ER PO SCH ×2 (08:10→20:31)
[2018-09-08] MEDS: Aspirin 81 mg Enteric Coated Tablet PO SCH (08:16)
[2018-09-08] MEDS ORDERED: Sodium Chloride 0.9% 500 ML IVPB SCH (08:45)
[2018-09-08] MEDS ORDERED: traMADol HCl 50 MG TAB PO PRN (11:01)
--- NOTE | 2018-09-08 16:51 | EKG ---
Test Reason : Blood Pressure : / mmHG Vent. Rate : 076 BPM Atrial Rate : 072 BPM P-R Int : 000 ms QRS Dur : 084 ms QT Int : 422 ms P-R-T Axes : 000 059 -12 degrees QTc Int : 474 ms Undetermined rhythm Low voltage QRS Nonspecific ST and T wave abnormality Prolonged QT Abnormal ECG Confirmed by VANDA MORALES DO ([id number]), videotape editor JORGE RUSHING ([id number]) on 09/08/2018 4:51:17 PM Referred By: Confirmed By:VANDA MORALES DO
--- NOTE | 2018-09-08 18:05 | PDOC.PN ---
- Subjective Encounter Start Date: 09/08/18 Encounter Start Time: 08:40 Pt seen for followup re: hyponatremia. Had low blood pressure earlier, feels better now. - Objective Resuscitation Status - Order Detail: 08/28/18 13:30 Resuscitation Status Routine Resuscitation Status: FULL: Full Resuscitation Discussed with: ying LIZAMA Reviewed: Yes Vital Signs & Weight: Vital Signs (12 hours) Temp Pulse Resp BP BP Pulse Ox 09/08/18 15:43 97.7 F 67 18 104/60 97 09/08/18 12:45 60 14 09/08/18 12:00 97.7 F 67 18 101/53 L 96 09/08/18 09:23 66 104/57 L 09/08/18 09:00 73 100/62 09/08/18 08:40 66 91/55 L 09/08/18 08:10 60 93 L 09/08/18 08:08 87/53 L 09/08/18 08:00 97.9 F 75 16 93 L 09/08/18 07:17 60 14 Weight Admit Weight 182 lb 6.4 oz Weight 179 lb 3.2 oz I&O: 09/07/18 09/08/18 09/09/18 06:59 06:59 06:59 Intake Total 692 902 980 Output Total 1300 975 225 Balance -608 -73 755 Result Diagrams: 09/08/18 05:34 09/08/18 05:34 Additional Labs: Labs reviewed by me Phys Exam - Physical Examination Constitutional: NAD HEENT: moist MMs Neck: supple Respiratory: clear to auscultation bilateral Cardiovascular: RRR Gastrointestinal: soft R prepatellar hematoma Neurological: moves all 4 limbs Psychiatric: normal affect Dx/Plan (1) Hyponatremia Code(s): E87.1 - HYPO-OSMOLALITY AND HYPONATREMIA Status: Acute Comment: sodium improved to 130 today, pt is still on fluid restriction (850 ml/24h) (2) CAD (coronary artery disease) Code(s): I25.10 - ATHSCL HEART DISEASE OF [place] CORONARY ARTERY W/O ANG PCTRS Status: Chronic Qualifiers: Coronary Disease-Associated Artery/Lesion type: [place] artery [place] vs. transplanted heart: [place] heart Associated angina: without angina Qualified Code(s): I25.10 - Atherosclerotic heart disease of [place] coronary artery without angina pectoris Comment: stable, continue aspirin and Crestor (3) COPD (chronic obstructive pulmonary disease) Status: Chronic Qualifiers: COPD type: unspecified COPD Qualified Code(s): J44.9 - Chronic obstructive pulmonary disease, unspecified Comment: stable (4) HTN (hypertension) Code(s): I10 - ESSENTIAL (PRIMARY) HYPERTENSION Status: Chronic Qualifiers: Hypertension type: essential hypertension Qualified Code(s): I10 - Essential (primary) hypertension Comment: controlled (5) Chronic atrial fibrillation Code(s): I48.2 - CHRONIC ATRIAL FIBRILLATION Status: Chronic Comment: will continue apixaban - Plan * . Review of Systems - Review of Systems Constitutional: negative: fever, chills, sweats, weakness, malaise Cardiovascular: negative: chest pain, palpitations, orthopnea, paroxysmal nocturnal dyspnea, edema, light headedness - Medications/Allergies Allergies/Adverse Reactions: Allergies Allergy/AdvReac Type Severity Reaction Status Date / Time No Known Allergies Allergy Unverified 08/28/18 16:56 Medications: Current Medications Albuterol/Ipratropium (Duoneb) 3 ml NEB [id number] [facility] Last Admin: 09/08/18 12:45 Dose: 3 ml Amlodipine Besylate (Norvasc) 5 mg PO DAILY [facility] Last Admin: 09/08/18 08:10 Dose: Not Given Apixaban (Eliquis) 5 mg PO BID [facility] Last Admin: 09/08/18 08:10 Dose: 5 mg Aspirin (Ecotrin) 81 mg PO DAILY [facility] Last Admin: 09/08/18 08:16 Dose: 81 mg Guaifenesin/Dextromethorphan (Mucinex Dm) 1 tab PO Q12HR [facility] Last Admin: 09/08/18 08:10 Dose: 1 tab Nitroglycerin (Nitrostat) 0.4 mg PO Q5MIN PRN PRN Reason: Chest Pain Rosuvastatin Calcium (Crestor) 10 mg PO DAILY [facility] Last Admin: 09/08/18 08:10 Dose: 10 mg Sodium Chloride (Flush - Normal Saline) 10 ml IVF Q12HR [facility] Last Admin: 09/08/18 08:10 Dose: 10 ml Tamsulosin HCl (Flomax) 0.4 mg PO HS [facility] Last Admin: 09/07/18 20:22 Dose: 0.4 mg Tramadol HCl (Ultram) 50 mg PO Q4H PRN PRN Reason: Pain
[2018-09-08] MEDS: Tamsulosin HCl 0.4 MG CAP PO SCH (20:31)
[2018-09-09] MEDS: Rosuvastatin 10 MG TAB PO SCH (08:06)
[2018-09-09] MEDS: guaiFENesin/DM ER PO SCH ×2 (08:06→21:18)
[2018-09-09] MEDS: Apixaban 5 MG TAB PO SCH ×2 (08:06→20:18)
[2018-09-09] MEDS: Aspirin 81 mg Enteric Coated Tablet PO SCH (08:06)
[2018-09-09] MEDS: Amlodipine 5 MG TAB PO SCH (08:06)
--- NOTE | 2018-09-09 16:49 | PDOC.PN ---
- Subjective Encounter Start Date: 09/09/18 Encounter Start Time: 09:40 Pt seen for followup re: hyponatremia. No complaints today. - Objective Resuscitation Status - Order Detail: 08/28/18 13:30 Resuscitation Status Routine Resuscitation Status: FULL: Full Resuscitation Discussed with: patient Vital Signs & Weight: Vital Signs (12 hours) Temp Pulse Resp BP BP Pulse Ox 09/09/18 15:35 97.3 F L 62 16 119/72 95 09/09/18 13:11 64 15 09/09/18 11:34 97.7 F 65 16 119/72 93 L 09/09/18 08:06 67 112/66 09/09/18 07:59 98.0 F 67 16 112/66 97 09/09/18 07:20 76 15 Weight Admit Weight 182 lb 6.4 oz Weight 174 lb 4.8 oz I&O: 09/08/18 09/09/18 09/10/18 06:59 06:59 06:59 Intake Total 902 1220 Output Total 975 1050 Balance -73 170 Result Diagrams: 09/08/18 05:34 09/08/18 05:34 Phys Exam - Physical Examination Constitutional: NAD HEENT: moist MMs Neck: supple Respiratory: clear to auscultation bilateral Cardiovascular: RRR Gastrointestinal: soft Neurological: moves all 4 limbs Psychiatric: normal affect Dx/Plan (1) Hyponatremia Code(s): E87.1 - HYPO-OSMOLALITY AND HYPONATREMIA Status: Acute Comment: continue fluid restriction, check AM labs (2) CAD (coronary artery disease) Code(s): I25.10 - ATHSCL HEART DISEASE OF [place] CORONARY ARTERY W/O ANG PCTRS Status: Chronic Qualifiers: Coronary Disease-Associated Artery/Lesion type: [place] artery [place] vs. transplanted heart: [place] heart Associated angina: without angina Qualified Code(s): I25.10 - Atherosclerotic heart disease of [place] coronary artery without angina pectoris Comment: stable, on aspirin and Crestor (3) COPD (chronic obstructive pulmonary disease) Status: Chronic Qualifiers: COPD type: unspecified COPD Qualified Code(s): J44.9 - Chronic obstructive pulmonary disease, unspecified Comment: stable (4) HTN (hypertension) Code(s): I10 - ESSENTIAL (PRIMARY) HYPERTENSION Status: Chronic Qualifiers: Hypertension type: essential hypertension Qualified Code(s): I10 - Essential (primary) hypertension Comment: controlled (5) Chronic atrial fibrillation Code(s): I48.2 - CHRONIC ATRIAL FIBRILLATION Status: Chronic Comment: continue apixaban - Plan * . Review of Systems - Review of Systems Cardiovascular: negative: chest pain, palpitations, orthopnea, paroxysmal nocturnal dyspnea, edema, light headedness Gastrointestinal: negative: Nausea, Vomiting, Abdominal Pain, Diarrhea, Constipation, Melena, Hematochezia - Medications/Allergies Allergies/Adverse Reactions: Allergies Allergy/AdvReac Type Severity Reaction Status Date / Time No Known Allergies Allergy Unverified 08/28/18 16:56 Medications: Current Medications Albuterol/Ipratropium (Duoneb) 3 ml NEB [id number] [facility] Last Admin: 09/09/18 13:11 Dose: 3 ml Amlodipine Besylate (Norvasc) 5 mg PO DAILY [facility] Last Admin: 09/09/18 08:06 Dose: Not Given Apixaban (Eliquis) 5 mg PO BID [facility] Last Admin: 09/09/18 08:06 Dose: 5 mg Aspirin (Ecotrin) 81 mg PO DAILY [facility] Last Admin: 09/09/18 08:06 Dose: 81 mg Guaifenesin/Dextromethorphan (Mucinex Dm) 1 tab PO Q12HR [facility] Last Admin: 09/09/18 08:06 Dose: 1 tab Nitroglycerin (Nitrostat) 0.4 mg PO Q5MIN PRN PRN Reason: Chest Pain Rosuvastatin Calcium (Crestor) 10 mg PO DAILY [facility] Last Admin: 09/09/18 08:06 Dose: 10 mg Sodium Chloride (Flush - Normal Saline) 10 ml IVF Q12HR [facility] Last Admin: 09/09/18 08:07 Dose: 10 ml Tamsulosin HCl (Flomax) 0.4 mg PO HS [facility] Last Admin: 09/08/18 20:31 Dose: 0.4 mg Tramadol HCl (Ultram) 50 mg PO Q4H PRN PRN Reason: Pain
[2018-09-09] MEDS: Tamsulosin HCl 0.4 MG CAP PO SCH (20:18)
[2018-09-10 05:28] LABS: #Eosinphils 0.2 thou/uL (0.0-0.7); #Lymphocytes 1.3 thou/uL (1.20-3.40); #Monocytes 0.8 thou/uL (0.11-0.59); #Neutrophils 4.5 thou/uL (1.40-6.50); %Basophils 0.6 % (0.0-1.0); %Eosinophils 2.8 % (0.0-10.0); %Lymphocytes 18.3 % (21.0-51.0); %Monocytes 12.2 % (0.0-10.0); %Neutrophils 66.1 % (42.0-75.0); Hemoglobin 11.8 g/dL (14.0-18.0); Mean Corpuscular Hemoglobin 30.3 pg (27.0-31.0); Mean Corpuscular Volume 94.8 fL (78.0-98.0); Mean Platelet Volume 7.1 fL (7.4-10.4); Platelet Count 352 thou/uL (130-400); RBC Distribution Width 13.2 % (11.5-14.5); Red Blood Cell (RBC) Count 3.88 mill/uL (4.70-6.10); White Blood Cell (WBC) Count 6.8 thou/uL (4.8-10.8)
[2018-09-10 05:45] LABS: Anion Gap 12 mmol/L (10-20); BUN (Urea Nitrogen) 19 mg/dL (8.4-25.7); Calc. Creatinine Clearance 75 mL/min (70-130); Calcium 8.9 mg/dL (7.8-10.44); Carbon Dioxide 26 mmol/L (23-31); Chloride 96 mmol/L (98-107); Estimated GFR-MDRD Greater than 90; Glucose 92 mg/dL (83-110); Potassium 4.4 mmol/L (3.5-5.1); Sodium 130 mmol/L (136-145)
[2018-09-10] MEDS: Aspirin 81 mg Enteric Coated Tablet PO SCH (08:11)
[2018-09-10] MEDS: Rosuvastatin 10 MG TAB PO SCH (08:11)
[2018-09-10] MEDS: Apixaban 5 MG TAB PO SCH ×2 (08:11→20:37)
[2018-09-10] MEDS: Amlodipine 5 MG TAB PO SCH (08:19)
[2018-09-10] MEDS: guaiFENesin/DM ER PO SCH ×2 (09:35→20:37)
--- NOTE | 2018-09-10 19:21 | PDOC.PN ---
- Subjective Encounter Start Date: 09/10/18 Encounter Start Time: 08:20 Pt seen for followup re: hyponatremia. Pt upset at 800 ml fluid restriction. - Objective Resuscitation Status - Order Detail: 08/28/18 13:30 Resuscitation Status Routine Resuscitation Status: FULL: Full Resuscitation Discussed with: patient DL Reviewed: Yes Vital Signs & Weight: Vital Signs (12 hours) Temp Pulse Resp BP BP Pulse Ox 09/10/18 15:16 97.6 F 65 16 121/74 92 L 09/10/18 13:39 64 15 09/10/18 11:03 97.5 F L 78 20 111/61 93 L 09/10/18 08:19 56 L 109/61 09/10/18 08:10 92 L Weight Admit Weight 182 lb 6.4 oz Weight 174 lb 4.8 oz I&O: 09/09/18 09/10/18 09/11/18 06:59 06:59 06:59 Intake Total 1220 760 810 Output Total 1050 900 750 Balance 170 -140 60 Result Diagrams: 09/10/18 04:49 09/10/18 04:49 Additional Labs: Labs reviewed by me Phys Exam - Physical Examination Constitutional: NAD HEENT: moist MMs Neck: supple Respiratory: clear to auscultation bilateral Cardiovascular: RRR Neurological: moves all 4 limbs Psychiatric: normal affect Dx/Plan (1) Hyponatremia Code(s): E87.1 - HYPO-OSMOLALITY AND HYPONATREMIA Status: Acute Comment: Liberalize fluid restriction to 1000 ml, check sodium level. (2) CAD (coronary artery disease) Code(s): I25.10 - ATHSCL HEART DISEASE OF [place] CORONARY ARTERY W/O ANG PCTRS Status: Chronic Qualifiers: Coronary Disease-Associated Artery/Lesion type: [place] artery [place] vs. transplanted heart: [place] heart Associated angina: without angina Qualified Code(s): I25.10 - Atherosclerotic heart disease of [place] coronary artery without angina pectoris Comment: continue aspirin and Crestor (3) COPD (chronic obstructive pulmonary disease) Status: Chronic Qualifiers: COPD type: unspecified COPD Qualified Code(s): J44.9 - Chronic obstructive pulmonary disease, unspecified Comment: stable (4) HTN (hypertension) Code(s): I10 - ESSENTIAL (PRIMARY) HYPERTENSION Status: Chronic Qualifiers: Hypertension type: essential hypertension Qualified Code(s): I10 - Essential (primary) hypertension Comment: controlled (5) Chronic atrial fibrillation Code(s): I48.2 - CHRONIC ATRIAL FIBRILLATION Status: Chronic Comment: continue apixaban - Plan * . Review of Systems - Review of Systems Cardiovascular: negative: chest pain, palpitations, orthopnea, paroxysmal nocturnal dyspnea, edema, light headedness Gastrointestinal: negative: Nausea, Vomiting, Abdominal Pain, Diarrhea, Constipation, Melena, Hematochezia - Medications/Allergies Allergies/Adverse Reactions: Allergies Allergy/AdvReac Type Severity Reaction Status Date / Time No Known Allergies Allergy Unverified 08/28/18 16:56 Medications: Current Medications Albuterol/Ipratropium (Duoneb) 3 ml NEB [id number] [facility] Last Admin: 09/10/18 13:39 Dose: 3 ml Amlodipine Besylate (Norvasc) 5 mg PO DAILY [facility] Last Admin: 09/10/18 08:19 Dose: Not Given Apixaban (Eliquis) 5 mg PO BID [facility] Last Admin: 09/10/18 08:11 Dose: 5 mg Aspirin (Ecotrin) 81 mg PO DAILY [facility] Last Admin: 09/10/18 08:11 Dose: 81 mg Guaifenesin/Dextromethorphan (Mucinex Dm) 1 tab PO Q12HR [facility] Last Admin: 09/10/18 09:35 Dose: 1 tab Nitroglycerin (Nitrostat) 0.4 mg PO Q5MIN PRN PRN Reason: Chest Pain Rosuvastatin Calcium (Crestor) 10 mg PO DAILY [facility] Last Admin: 09/10/18 08:11 Dose: 10 mg Sodium Chloride (Flush - Normal Saline) 10 ml IVF Q12HR [facility] Last Admin: 09/10/18 09:35 Dose: 10 ml Tamsulosin HCl (Flomax) 0.4 mg PO HS [facility] Last Admin: 09/09/18 20:18 Dose: 0.4 mg Tramadol HCl (Ultram) 50 mg PO Q4H PRN PRN Reason: Pain
[2018-09-10] MEDS: Tamsulosin HCl 0.4 MG CAP PO SCH (20:37)
[2018-09-11 04:12] LABS: #Eosinphils 0.1 thou/uL (0.0-0.7); #Lymphocytes 0.9 thou/uL (1.20-3.40); #Monocytes 0.7 thou/uL (0.11-0.59); #Neutrophils 4.5 thou/uL (1.40-6.50); %Eosinophils 1.3 % (0.0-10.0); %Lymphocytes 14.8 % (21.0-51.0); %Monocytes 11.2 % (0.0-10.0); %Neutrophils 72.7 % (42.0-75.0); Hemoglobin 12.3 g/dL (14.0-18.0); Mean Corpuscular HGB CONC 32.6 g/dL (32.0-36.0); Mean Corpuscular Hemoglobin 30.5 pg (27.0-31.0); Mean Corpuscular Volume 93.4 fL (78.0-98.0); Mean Platelet Volume 6.6 fL (7.4-10.4); Platelet Count 306 thou/uL (130-400); RBC Distribution Width 13.1 % (11.5-14.5); Red Blood Cell (RBC) Count 4.05 mill/uL (4.70-6.10); White Blood Cell (WBC) Count 6.2 thou/uL (4.8-10.8)
[2018-09-11 04:30] LABS: Anion Gap 11 mmol/L (10-20); BUN (Urea Nitrogen) 17 mg/dL (8.4-25.7); Calc. Creatinine Clearance 74 mL/min (70-130); Carbon Dioxide 28 mmol/L (23-31); Chloride 95 mmol/L (98-107); Estimated GFR-MDRD Greater than 90; Glucose 95 mg/dL (83-110); Potassium 4.7 mmol/L (3.5-5.1); Sodium 129 mmol/L (136-145)
[2018-09-11 07:24] VITALS: TEMP 98.2
[2018-09-11] MEDS ORDERED: traMADol HCl 50 MG TAB PO PRN (08:59)
[2018-09-11] MEDS: Amlodipine 5 MG TAB PO SCH (08:59)
[2018-09-11 10:56] VITALS: BP 117/68
[2018-09-11] MEDS: guaiFENesin/DM ER PO SCH (11:13)
[2018-09-11] MEDS: Aspirin 81 mg Enteric Coated Tablet PO SCH (11:13)
[2018-09-11] MEDS: Rosuvastatin 10 MG TAB PO SCH (11:14)
[2018-09-11] MEDS: Apixaban 5 MG TAB PO SCH (11:14)
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
== END 2018-09-11 12:09 | disposition home or self-care (01) | DRG 914 ==
LOC: ERS 09:32 → 2NO 12:51 → OBSVTOIN 08-29 19:25 → SJJU 09-05 21:07
PROVIDERS: ADMIT Internal Medicine; ATTEND Internal Medicine
DX: S29.9XXA Unspecified injury of thorax, initial encounter (principal); E22.2 Syndrome of inappropriate secretion of antidiuretic hormone; S82.001A Unspecified fracture of right patella, initial encounter for closed fracture; R07.89 Other chest pain; I48.91 Unspecified atrial fibrillation; I25.10 Atherosclerotic heart disease of native coronary artery without angina pectoris; E78.5 Hyperlipidemia, unspecified; E66.9 Obesity, unspecified; F17.210 Nicotine dependence, cigarettes, uncomplicated; I73.9 Peripheral vascular disease, unspecified; S80.01XA Contusion of right knee, initial encounter; N18.2 Chronic kidney disease, stage 2 (mild); I12.9 Hypertensive chronic kidney disease with stage 1 through stage 4 chronic kidney disease, or unspecified chronic kidney disease; J44.9 Chronic obstructive pulmonary disease, unspecified; D63.1 Anemia in chronic kidney disease; V89.2XXA Person injured in unspecified motor-vehicle accident, traffic, initial encounter; Y92.9 Unspecified place or not applicable; Z79.01 Long term (current) use of anticoagulants; I25.2 Old myocardial infarction; Z79.899 Other long term (current) drug therapy; Z79.51 Long term (current) use of inhaled steroids; Z95.5 Presence of coronary angioplasty implant and graft; Z79.82 Long term (current) use of aspirin; Z68.25 Body mass index [BMI] 25.0-25.9, adult
CPT/HCPCS: 36415; 71045; 71260; 74177; 80048; 80053; 81001; 82436; 82553; 83735; 83930; 83935; 84100; 84133; 84300; 84443; 84484; 84550; 85025; 87045; 87046; 87324; 87449; 87899; 93005; 93880; 94640; J1940; J7620; Q9966

== ENCOUNTER 2018-11-04 03:27 | Inpatient (IN) | payer MEDICARE ==
[2018-11-04] MEDS ORDERED: Acetaminophen 500 MG TAB ONE (04:03)
[2018-11-04 04:46] LABS: #Eosinphils 0.1 thou/uL (0.0-0.7); #Lymphocytes 1.2 thou/uL (1.20-3.40); #Monocytes 0.6 thou/uL (0.11-0.59); %Basophils 0.4 % (0.0-1.0); %Eosinophils 2.1 % (0.0-10.0); %Lymphocytes 19.7 % (21.0-51.0); %Monocytes 10.7 % (0.0-10.0); %Neutrophils 67.1 % (42.0-75.0); Hemoglobin 12.6 g/dL (14.0-18.0); Mean Corpuscular HGB CONC 31.3 g/dL (32.0-36.0); Mean Corpuscular Hemoglobin 29.5 pg (27.0-31.0); Mean Corpuscular Volume 94.2 fL (78.0-98.0); Mean Platelet Volume 7.3 fL (7.4-10.4); Platelet Count 233 thou/uL (130-400); RBC Distribution Width 15.3 % (11.5-14.5); Red Blood Cell (RBC) Count 4.28 mill/uL (4.70-6.10)
[2018-11-04 05:07] LABS: ALT (SGPT) 14 U/L (8-55); AST (SGOT) 34 U/L (5-34); Albumin 3.4 g/dL (3.4-4.8); Alkaline Phosphatase 157 U/L (40-150); Anion Gap 12 mmol/L (10-20); BUN (Urea Nitrogen) 11 mg/dL (8.4-25.7); Bilirubin, Total 0.7 mg/dL (0.2-1.2); CRP (Inflammatory) Less than 0.50 mg/dL (= or < 0.5); Calc. Creatinine Clearance 0 mL/min (70-130); Calcium 9.2 mg/dL (7.8-10.44); Carbon Dioxide 29 mmol/L (23-31); Chloride 98 mmol/L (98-107); Estimated GFR-MDRD 84; Globulin 3.7 g/dL (2.4-3.5); Glucose 91 mg/dL (83-110); Potassium 4.4 mmol/L (3.5-5.1); Protein, Total 7.1 g/dL (5.8-8.1); Sodium 135 mmol/L (136-145)
[2018-11-04 05:27] LABS: CKMB 2.5 ng/mL (0-6.6)
--- NOTE | 2018-11-04 07:44 | RAD ---
EXAM: Chest PA and lateral: HISTORY: Chest COMPARISON: 08/30/2018 FINDINGS: Heart: Cardiomegaly Aorta: Atherosclerosis Pulmonary vessels: Slightly prominent Costophrenic angles: Left greater than right pleural effusions. Lungs: Left lower lobe opacification obscures the left hemidiaphragm and left heart border. Pneumothorax: No pneumothorax Osseous structures: Remote posterior left rib fractures are noted. IMPRESSION: Pleural and parenchymal changes left lower lobe and lingula. Correlate for pneumonia or aspiration. C ontinued surveillance.
[2018-11-04 09:05] VITALS: BMI 33.4
[2018-11-04 10:34] LABS: Troponin I 0.053 ng/mL (< 0.028)
--- NOTE | 2018-11-04 12:50 | RAD ---
LEFT ELBOW FOUR VIEWS: INDICATIONS: Pain. 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 Vascular calcifications are seen, superimposed upon the osseous str uctures. A discrete fracture of acuity is not visualized. Evaluation is limited due to the obliquity of the lateral and frontal views. IMPRESSION: 1. No definite acute fracture is identified, within limitations. 2. Osseous degenerative change is present. POS: [facility]
[2018-11-04] MEDS ORDERED: Acetaminophen 500 MG TAB PO PRN (12:54)
[2018-11-04] MEDS ORDERED: hydrALAZINE 20 MG/ML VIAL SLOW IVP PRN (12:54)
[2018-11-04] MEDS ORDERED: Ondansetron PF 4 MG/2 ML Vial IVP PRN (12:54)
[2018-11-04] MEDS ORDERED: Furosemide 20 MG TAB PO PRN (12:55)
--- NOTE | 2018-11-04 16:19 | CT ---
CT SCAN LEFT UPPER EXTREMITY WITHOUT IV CONTRAST: History: Redness and swelling of left shoulder, left elbow pain. FINDINGS: There is evidence for diffuse subcutaneous edema evidence for anasarca. Moderate left pleural effusio n. There is some moderate multivolume loss of the supraspinatus and inferior spinatus and subscapular is muscles, probably related to chronic rotator cuff abnormality. No evidence for associated soft tis kurtis mass or abnormal fluid collection. 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 No evidence for acute elbow fracture. No humeral fracture. IMPRESSION: 1. Left pleural effusion and vascular congestion. Evidence for soft tissue anasarca. 2. Some mild to moderate muscle volume loss of the rotator cuff muscles, evidence for probable chroni c rotator cuff abnormality. No evidence for acute fracture or dislocation. Arthrosis and degenerative changes of the glenohumeral and elbow joints. No abnormal fluid collection or abscess. ` POS: [facility]
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
[2018-11-04] MEDS: Rosuvastatin 10 MG TAB PO SCH (20:29)
[2018-11-04] MEDS: Famotidine 20 MG TAB PO SCH (20:29)
[2018-11-04] MEDS: Apixaban 5 MG TAB PO SCH (20:29)
[2018-11-05] MEDS ORDERED: Melatonin 3 MG TAB PO PRN (01:09)
[2018-11-05 05:05] LABS: #Eosinphils 0.1 thou/uL (0.0-0.7); #Lymphocytes 0.9 thou/uL (1.20-3.40); #Monocytes 0.7 thou/uL (0.11-0.59); #Neutrophils 4.7 thou/uL (1.40-6.50); %Basophils 0.2 % (0.0-1.0); %Eosinophils 0.9 % (0.0-10.0); %Lymphocytes 13.8 % (21.0-51.0); %Monocytes 11.2 % (0.0-10.0); %Neutrophils 73.9 % (42.0-75.0); Hemoglobin 12.3 g/dL (14.0-18.0); Mean Corpuscular HGB CONC 32.3 g/dL (32.0-36.0); Mean Corpuscular Hemoglobin 30.7 pg (27.0-31.0); Mean Platelet Volume 7.5 fL (7.4-10.4); Platelet Count 214 thou/uL (130-400); RBC Distribution Width 15.1 % (11.5-14.5); Red Blood Cell (RBC) Count 4.01 mill/uL (4.70-6.10); White Blood Cell (WBC) Count 6.4 thou/uL (4.8-10.8)
[2018-11-05 05:23] LABS: Anion Gap 9 mmol/L (10-20); BUN (Urea Nitrogen) 10 mg/dL (8.4-25.7); Calc. Creatinine Clearance 82 mL/min (70-130); Calcium 9.2 mg/dL (7.8-10.44); Carbon Dioxide 31 mmol/L (23-31); Chloride 95 mmol/L (98-107); Estimated GFR-MDRD Greater than 90; Glucose 98 mg/dL (83-110); Potassium 4.2 mmol/L (3.5-5.1); Sodium 131 mmol/L (136-145); Uric Acid 5.3 mg/dL (3.5-7.2)
[2018-11-05 05:45] LABS: CKMB 2.1 ng/mL (0-6.6)
[2018-11-05] MEDS: Famotidine 20 MG TAB PO SCH ×2 (08:12→20:54)
[2018-11-05] MEDS: Amlodipine 5 MG TAB PO SCH (08:12)
[2018-11-05] MEDS: Aspirin 81 mg Enteric Coated Tablet PO SCH (08:12)
[2018-11-05] MEDS: Apixaban 5 MG TAB PO SCH (08:12)
[2018-11-05] MEDS: Tamsulosin HCl 0.4 MG CAP PO SCH (08:12)
[2018-11-05] MEDS ORDERED: Furosemide 40 MG/4 ML VIAL SLOW IVP SCH (11:30)
--- NOTE | 2018-11-05 13:51 | CON ---
DATE OF CONSULTATION: 11/05/2018 ADMITTING PHYSICIAN: Hospitalist Service. CONSULTING PHYSICIAN: Dr. Belcher. PRIMARY SERVICE GIRL: Dr. Yao Leija. REASON FOR CONSULTATION: Bradycardia. HISTORY OF PRESENT ILLNESS: Mr. Razo is a pleasant 88-year-old male with a past medical history of chronic atrial fibrillation and significant coronary artery disease. He presents to the emergency room with a complaint of shortness of breath. The patient tells me he has been short of breath on and off for the last couple of weeks. He also admits to intermittent dizziness and lightheadedness. He felt intermittent pumping sensation and fatigue. Upon arrival to the emergency room, he had indeterminate troponin enzymes and BNP greater than 600. He was admitted for chest pain rule out. His EKG initially showed atrial fibrillation with a heart rate in the 70s. After being monitored on telemetry for the last 24 hours, he has had intermittent pauses up to 2.7 seconds and heart rates dropping into the 20 to 40 beats per minute range. He is symptomatic with these. The patient has a past medical history of significant coronary artery disease as mentioned above. In 2006, he underwent a left heart catheterization showing 75% proximal LAD, 80% RCA, and 100% mid RCA lesion. He had a PTCA and stent placement of the right coronary artery at that time. He has chronic COPD and a long smoking history. He has chronic atrial fibrillation. He had been taking his Eliquis incorrectly prior to admission. His Eliquis was restarted at the time of admission. He has actually received one dose last night and one this morning. PAST MEDICAL HISTORY: 1. Coronary artery disease. 2. COPD. 3. Chronic atrial fibrillation. 4. Hyperlipidemia. 5. Hypertension. 6. Former heavy smoker. 7. BPH. PAST SURGICAL HISTORY: Cataract surgery, cyst removal, left heart catheterization with PTCA and stent placement to the right coronary artery. REVIEW OF SYSTEMS: A 10-point review of systems discussed with the patient is negative except per HPI and past medical history mentioned above. CURRENT AT-HOME MEDICATIONS: 1. Eliquis 5 mg one p.o. b.i.d. 2. Lasix 20 mg p.r.n. 3. Ultram 50 mg p.r.n. 4. Breo Ellipta daily. 5. Flomax 0.4 mg daily. 6. Norvasc 5 mg daily. 7. Crestor 10 mg at bedtime. 8. Aspirin 81 mg daily. ALLERGIES: NO KNOWN DRUG ALLERGIES. SOCIAL HISTORY: The patient is a former smoker. Otherwise noncontributory. PHYSICAL EXAMINATION: GENERAL: This is a pleasant elderly male, who is in no acute distress. He is lying in bed, conversing easily, but does pause to take deep breath in between sentences. He denies any lightheadedness at this time. NEUROLOGIC: He is alert, awake, and oriented x3. VITAL SIGNS: Stable. HEENT: Head is atraumatic and normocephalic. Mucous membranes are moist. NECK: Supple with mild JVD noted. CHEST: Reveals bilateral rales and rhonchi. CARDIOVASCULAR: Irregularly irregular rhythm and bradycardic. ABDOMEN: Soft, nontender to palpation, and nondistended. EXTREMITIES: Show no clubbing or cyanosis. SKIN: Warm and dry. PSYCHIATRIC: Mood and affect are appropriate. MUSCULOSKELETAL: Not fully assessed. LABORATORY DATA: BMP is within normal limits. CBC shows hemoglobin 12.3 and hematocrit 38.1. IMPRESSION: 1. Sick sinus syndrome. 2. Chronic atrial fibrillation. 3. Acute systolic congestive heart failure secondary to bradycardia, most likely. 4. Hypertension. 5. Chronic obstructive pulmonary disease. At this time, I have discussed the case with the hospitalist team as well as Dr. Belcher. He needs to undergo pacemaker placement, but given the fact that he is taking his Eliquis twice in the last 24 hours. We will proceed with temporary wire placement most likely. Stat echocardiogram is pending. We will also give him a dose of IV Lasix. Further recommendations pending hospital course. Job ID: [id number]
--- NOTE | 2018-11-05 15:58 | PDOC.HOSPP ---
- Subjective Subjective: Patient states he feels well and is without complaints. Has not had any chest pain or shortness of breath. States he had 3 bowel movements today that were small. Denies any diarrhea. No blood in stools. Notified by RN, patients HR dropped to 20s, noted to be in high-grade AV block. Was asymptomatic during this episode. Also reported to have a 10 second pause. - Objective Vital Signs & Weight: Vital Signs (12 hours) Temp Pulse Pulse Pulse Resp BP BP 11/05/18 14:00 77 74 127/67 126/60 11/05/18 11:39 97.5 F L 54 L 24 H 11/05/18 08:23 97.4 F L 74 20 11/05/18 08:12 70 BP Pulse Ox 11/05/18 14:00 11/05/18 11:39 126/60 96 11/05/18 08:23 158/85 H 94 L 11/05/18 08:12 Weight Weight 201 lb I&O: 11/04/18 11/05/18 11/06/18 06:59 06:59 06:59 Intake Total 1470 Output Total 700 325 Balance 770 -325 Result Diagrams: 11/05/18 04:34 11/05/18 04:34 ROS - Review of Systems All systems: All other ROS were reviewed and found negative. Constitutional: denies: fever, chills, sweats, weakness, malaise, other Eyes: denies: pain, vision change, conjunctivae inflammation, eyelid inflammation, redness, other ENT: denies: ear pain, ear discharge, nose pain, nose discharge, nose congestion , mouth pain, mouth swelling, throat pain, throat swelling, other Respiratory: reports: cough (chronic). denies: shortness of breath, hemoptysis , SOB with excertion, pleuritic pain, sputum, wheezing, other Cardiovascular: reports: edema (left arm swelling/discomfort). denies: chest pain, palpitations, orthopnea, paroxysmal noc. dyspnea, light headedness Gastrointestinal: denies: nausea, vomitting, abdominal pain, diarrhea, constipation, melena, hematochezia, other Genitourinary: denies: dysuria, frequency, incontinence, hematuria, retention, other Musculoskeletal: denies: neck pain, shoulder pain, arm pain, back pain, hand pain, leg pain, foot pain, other Skin: denies: rash, lesions, maryjo, bruising, other Neurological: denies: weakness, numbness, incoordination, change in speech, confusion, seizures, other - Medication Medications: Active Medications Generic Name Dose Route Start Last Admin Trade Name Freq PRN Reason Stop Dose Admin Acetaminophen 1,000 mg 11/04/18 12:54 11/04/18 13:33 Tylenol PO 1,000 mg Q6H PRN Administration Mild Pain (1-3) Amlodipine Besylate 5 mg 11/05/18 09:00 11/05/18 08:12 Norvasc PO 5 mg DAILY FREDY Administration Aspirin 81 mg 11/05/18 09:00 11/05/18 08:12 Ecotrin PO 81 mg DAILY FREDY Administration Famotidine 20 mg 11/04/18 21:00 11/05/18 08:12 Pepcid PO 20 mg BID FREDY Administration Melatonin 3 mg 11/05/18 01:09 11/05/18 01:44 Melatonin PO 3 mg HS PRN Administration Insomnia Rosuvastatin Calcium 10 mg 11/04/18 21:00 11/04/18 20:29 Crestor PO 10 mg QPM FREDY Administration Sodium Chloride 10 ml 11/04/18 21:00 11/05/18 08:12 Flush - Normal Saline IVF 10 ml Q12HR FREDY Administration Tamsulosin HCl 0.4 mg 11/05/18 09:00 11/05/18 08:12 Flomax PO 0.4 mg DAILY FREDY Administration - Exam NAD, awake alert Eye: PERRL, anicteric sclera ENT: normocephalic atraumatic, no oropharyngeal lesions, moist mucosa Neck: supple, symmetric, no JVD Heart: RRR, no murmur, no gallops, no rubs, normal peripheral pulses Respiratory: normal chest expansion, no tachypnea, rales Gastrointestinal: soft, non-tender, non-distended, normal bowel sounds, no palpable masses Extremities: 1+ LE edema (bilaterally) Skin: no lesions, no rashes Neurological: CN's grossly intact, normal sensation to touch, no weakness, no focal deficits, no new deficit Musculoskeletal: normal tone, normal strength, no muscle wasting Psychiatric: normal affect, normal behavior, A&O x 3 Hosp A/P (1) CHF (congestive heart failure) Code(s): I50.9 - HEART FAILURE, UNSPECIFIED Status: Acute Qualifiers: Heart failure chronicity: acute on chronic Plan: Patient with left arm edema, and bilateral pleural effusions. BNP added on to labs, elevated at 658.6 Echo requested. Notifed by RN re: bradycardic, as low as 20s, experienced a 10 second pause. Noted to have high-grade AV block. Asymptomatic. Consult placed to cardiology, will be undergoing pacemaker placement. Unable to be done today since patient received Eliquis this morning. Lasix IV 40 mg x 1 given as per Cardiology. Further recommendations, as per Dr. Belcher. (2) CAD (coronary artery disease) Code(s): I25.10 - ATHSCL HEART DISEASE OF [place] CORONARY ARTERY W/O ANG PCTRS Status: Chronic Qualifiers: Coronary Disease-Associated Artery/Lesion type: [place] artery [place] vs. transplanted heart: [place] heart Associated angina: without angina Qualified Code(s): I25.10 - Atherosclerotic heart disease of [place] coronary artery without angina pectoris (3) COPD (chronic obstructive pulmonary disease) Status: Chronic Qualifiers: COPD type: unspecified COPD Qualified Code(s): J44.9 - Chronic obstructive pulmonary disease, unspecified (4) HTN (hypertension) Code(s): I10 - ESSENTIAL (PRIMARY) HYPERTENSION Status: Chronic Qualifiers: Hypertension type: essential hypertension Qualified Code(s): I10 - Essential (primary) hypertension
--- NOTE | 2018-11-05 18:09 | CON ---
DATE OF CONSULTATION: Please refer to Uma Leon's full consultation for details. HISTORY OF PRESENT ILLNESS: Mr. Razo is a pleasant 88-year-old gentleman, who is a patient of Dr. Yao Leija. He recently fell on his left side. No syncope or presyncope noted. He states he tripped over his 's cat. He continues to have a left arm discomfort. While in the hospital, he was found to have AFib. He has been on Eliquis. He has had intermittent slow ventricular response. Whether he is symptomatic from this is unknown. It is hard to gauge true symptoms. His QRS complex appears narrowed. PHYSICAL EXAMINATION: GENERAL: Patient is a pleasant gentleman who is in no acute distress. The patient appears their stated age. VITAL SIGNS: Blood pressure 139/80, pulse 70, temperature 97.4. NEUROLOGIC: The patient is alert and oriented x3 with no focal neurologic deficits. HEENT: Sclerae without icterus. Mouth has moist mucous membranes with normal pallor. NECK: No JVD. Carotid upstroke brisk. No bruits bilaterally. LUNGS: Clear to auscultation with unlabored respirations. BACK: No scoliosis or kyphosis. CARDIAC: Irregularly irregular rate and rhythm with normal S1 and S2. No S3 or S4 noted. No significant rubs, murmurs, thrills, or gallops noted throughout the precordium. PMI is not displaced. There is no parasternal heave. ABDOMEN: Soft, nontender, nondistended. No peritoneal signs present. No hepatosplenomegaly. No abnormal striae. EXTREMITIES: 2+ femoral and 2+ dorsalis pedis pulses. No cyanosis, clubbing, or edema. SKIN: No gross abnormalities. PERTINENT LABORATORY DATA: Hemoglobin 12.3 and white blood cell count 6.4. Creatinine 0.8. IMPRESSION: 1. Atrial fibrillation with slow ventricular response. 2. Recent fall. RECOMMENDATIONS: At this point, we will continue with observation. His QRS is narrowed. I could add dopamine and dobutamine if needed to increase his heart rate, but at this point given no symptoms, we would recommend observation. We will hold anticoagulation therapy in case Mr. Razo does require a pacemaker. Further recommendation per Dr. Yao Leija in a.m. Job ID: [id number]
[2018-11-05] MEDS: Rosuvastatin 10 MG TAB PO SCH (20:54)
[2018-11-06] MEDS: Tamsulosin HCl 0.4 MG CAP PO SCH (10:02)
[2018-11-06] MEDS: Aspirin 81 mg Enteric Coated Tablet PO SCH (10:02)
[2018-11-06] MEDS: Amlodipine 5 MG TAB PO SCH (10:02)
[2018-11-06] MEDS: Famotidine 20 MG TAB PO SCH (10:06)
--- NOTE | 2018-11-06 14:51 | PDOC.HOSPP ---
- Subjective Subjective: Mr. Razo was seen today in follow-up twice, earlier this morning and then now at 2:50pm. He continues to have some pain in his shoulder, but this has been a chronic problem for several months. - Objective Vital Signs & Weight: Vital Signs (12 hours) Temp Pulse Resp BP BP Pulse Ox 11/06/18 11:41 97.6 F 67 16 155/76 H 96 11/06/18 10:02 55 L 148/77 H 11/06/18 08:33 97.5 F L 72 16 148/77 H 94 L 11/06/18 08:00 94 L 11/06/18 04:00 97.6 F 81 20 128/81 93 L Weight Weight 202 lb I&O: 11/05/18 11/06/18 11/07/18 06:59 06:59 06:59 Intake Total 1470 600 Output Total 700 1076 Balance 770 -116 Result Diagrams: 11/05/18 04:34 11/05/18 04:34 ROS - Review of Systems All systems: All other ROS were reviewed and found negative. - Medication Medications: Active Medications Generic Name Dose Route Start Last Admin Trade Name Freq PRN Reason Stop Dose Admin Acetaminophen 1,000 mg 11/04/18 12:54 11/04/18 13:33 Tylenol PO 1,000 mg Q6H PRN Administration Mild Pain (1-3) Amlodipine Besylate 5 mg 11/05/18 09:00 11/06/18 10:02 Norvasc PO 5 mg DAILY FREDY Administration Aspirin 81 mg 11/05/18 09:00 11/06/18 10:02 Ecotrin PO 81 mg DAILY FREDY Administration Famotidine 20 mg 11/04/18 21:00 11/06/18 10:06 Pepcid PO 20 mg BID FREDY Administration Melatonin 3 mg 11/05/18 01:09 11/05/18 01:44 Melatonin PO 3 mg HS PRN Administration Insomnia Rosuvastatin Calcium 10 mg 11/04/18 21:00 11/05/18 20:54 Crestor PO 10 mg QPM FREDY Administration Sodium Chloride 10 ml 11/04/18 21:00 11/06/18 10:06 Flush - Normal Saline IVF 10 ml Q12HR FREDY Administration Tamsulosin HCl 0.4 mg 11/05/18 09:00 11/06/18 10:02 Flomax PO 0.4 mg DAILY FREDY Administration - Exam Eye: PERRL, anicteric sclera Heart: RRR, no murmur, no gallops, no rubs, normal peripheral pulses Respiratory: CTAB, no wheezes, no rales, no ronchi, normal chest expansion Gastrointestinal: soft, non-tender, non-distended, normal bowel sounds Musculoskeletal: normal tone (+ crepitus in the left upper extremitiy, decreased strength, and weakness with abduction) Hosp A/P (1) Chronic atrial fibrillation Code(s): I48.2 - CHRONIC ATRIAL FIBRILLATION Status: Chronic (2) CAD (coronary artery disease) Code(s): I25.10 - ATHSCL HEART DISEASE OF [place] CORONARY ARTERY W/O ANG PCTRS Status: Chronic Qualifiers: Coronary Disease-Associated Artery/Lesion type: [place] artery [place] vs. transplanted heart: [place] heart Associated angina: without angina Qualified Code(s): I25.10 - Atherosclerotic heart disease of [place] coronary artery without angina pectoris (3) Chronic anticoagulation Code(s): Z79.01 - RETIREMENT (CURRENT) USE OF ANTICOAGULANTS Status: Chronic (4) Tendinopathy of left rotator cuff Code(s): M67.912 - UNSPECIFIED DISORDER OF SYNOVIUM AND TENDON, LEFT SHOULDER Status: Acute (5) HTN (hypertension) Code(s): I10 - ESSENTIAL (PRIMARY) HYPERTENSION Status: Chronic Qualifiers: Hypertension type: essential hypertension Qualified Code(s): I10 - Essential (primary) hypertension - Plan * Chronic AFIB- with bradycardia- discussed with Dr. Leija and Dr. Ramos. He is not a candidate for Pacemaker. He has had some episodes of bradycardia, but these have been asymptomatic. * Left Shoulder pain- CT scan was consisent with chronic rorator cuff pathology , and this is consistent with his exam. - This can be further managed as an outpatient * CAD- stable * He is stable for discharge home.
--- NOTE | 2018-11-06 15:15 | PQF ---
ERUM AGUIRRE TONI MD [id number] CLINICAL DOCUMENTATION IMPROVEMENT CLARIFICATION FORM: ICD-10 Updated PLEASE DO AN ADDENDUM TO THE PROGRESS NOTE WITH ANY DOCUMENTATION UPDATES OR ADDITIONS AND CARRY THROUGH TO DC SUMMARY. THANK YOU. DATE: 11/06/2018 ATTN:DR. Marya ORTEGA Please exercise your independent, professional judgment in responding to the clarification form. Clinical indicators are provided on the bottom of this form for your review. Please check appropriate box(s): [ ] NSTEMI (IA type I) [ ] NSTEMI due to Demand Ischemia (AMI Type II) [ ] Bradycardia without IA [ X ] Other diagnosis __Atrial fibrillation with Tachy-rip syndrome [ ] Unable to determine In addition, please specify: Present on Admission (POA): [X ] Yes [ ] No [ ] Unable to determine CLINICAL INDICATORS - SIGNS / SYMPTOMS / LABS 11/04 ED PHYSICIAN FINAL DX: NSTEMI 11/04 TROPONIN I 0.049 0.050 0.053 11/05 TROPONIN I 0.057 11/04 H & P (INGRIS) ASSESSMENT: 2). CHEST PAIN, ATYPICAL, RESOLVED, HISTORY OF INDETERMINATE TROPONIN, 3), SEVERE CAD STATUS POST STENT TO RIGHT CORONARY ARTERY IN THE PAST, 5). CHRONIC ATRIAL FIB, THE PT HAS NOT BEEN TAKING ELIQUIS DIRECTED. 11/05 PN ( LISANDRA) NOTIFIED BY RN, PT'S HR DROPPED TO 20'S, NOTED TO BE IN HIGH GRADE AV BLOCK. ALSO REPORTED TO HAVE A 10 SECOND PAUSE 11/05 CONSULT (NASIMA) IMPRESSION: 1) ATRIAL FIBRILLATION WITH SLOW VENTRICULAR RESPONSE. 2). RECENT FALL. THE PT DOES REQUIRE A PACEMAKER RISK: H & P (INGRIS) ADVANCED AGE (88) HX CAD S/P STENTS HX COPD, OXYGEN DEPENDENT CURRENT TOBACCO ABUSE HX OF CHRONIC ATRIAL FIBRILLATION TREATMENTS CARDIOLOGY CONSULT- PLAN FOR PACEMAKER PLACEMENT SERIAL LABS CONTINUOUS TELEMETRY MONITORING THANK YOU! SHON (This form is maintained as a part of the permanent medical record) 2014 [employer]. All Rights Reserved [email or web address] [phone] MTDD
--- NOTE | 2018-11-06 15:38 | DIS ---
DATE OF ADMISSION: 11/04/2018 DATE OF DISCHARGE: 11/06/2018 PRIMARY CARE PHYSICIAN: Sondar Levy MD. DISCHARGE DISPOSITION: Home. PRIMARY DISCHARGE DIAGNOSES: 1. Chronic atrial fibrillation with bradycardia. 2. Chronic rotator cuff pathology or arthrosis. 3. Chronic obstructive pulmonary disease, who is oxygen dependent, with chronic respiratory failure secondary to chronic obstructive pulmonary disease. 4. Coronary artery disease. 5. Chronic anticoagulation. DISCHARGE MEDICATIONS: Include, 1. Tramadol 50 mg q.6 as needed. 2. Flomax 0.4 mg daily. 3. Crestor 10 mg q.p.m. 4. Lasix 20 mg daily. 5. Aspirin 81 mg daily. 6. Eliquis 5 mg twice a day. 7. Norvasc 5 mg daily. PROCEDURES DONE DURING ADMISSION: The patient had a CT scan of the left upper extremity, which demonstrated some vascular congestion. There was some moderate volume loss in the rotator cuff muscles. Evidence of probable chronic rotator cuff abnormality. There was no fracture or dislocation. There was no fluid or abscess collection. The patient also had an echocardiogram, and this showed an EF of 45% to 50%. A diastolic function could not be assessed due to the atrial fibrillation. There was umoceeqj-nu-ufbmhi mitral regurgitation. CODE STATUS: Full code. ALLERGIES: NO KNOWN DRUG ALLERGIES. HOSPITAL COURSE: Mr. Razo is a pleasant 88-year-old gentleman, who presented to the emergency room complaining of left upper extremity pain. While he was being evaluated, he was found to be in atrial fibrillation and there was concern that he had some significant bradycardic episodes. For this reason, Cardiology was consulted. He underwent echocardiogram showing mild systolic heart failure. Given the episodes of bradycardia, Electrophysiology was consulted. After evaluation, it was felt that he did not require pacemaker placement, and possibly would need an outpatient monitor to see if he had any symptomatic episodes of bradycardia. He also was complaining of the left arm pain, which was his initial complaint. In further discussion with the patient, he says that he had fallen into a doorjamb about 6 to 8 months earlier on that left side and it seemed like the pain started to slowly happen after this. He has trouble abducting his arm, but he is able to lift it above 50 degrees. There is significant crepitus in that shoulder joint, but there is no effusion or erythema. There has been no fever. CT scan did not show any worrisome signs and showed some findings consistent with rotator cuff pathology. This is consistent with his exam. Given that this is chronic in nature, he does not require any urgent Orthopedic evaluation. He had been evaluated by Physical Therapy and they recommended that he could. He was safe to go home with a quad cane. I did try to get some idea about the patient's home environment and he lives with his and also his granddaughter lives with him as well and her two children. He has a nurse, who comes in twice a week on Mondays and Fridays, and I asked if he needed any extra help and he did not quite answer right away. He just says I just need extra money. He appears to be clinically stable for discharge. I urged him to follow up with Orthopedic surgeon in the outpatient setting and also with Cardiology as recommended. Job ID: [id number]
[2018-11-06 15:45] VITALS: BP 137/72; TEMP 97.5
--- NOTE | 2018-11-06 20:13 | CON ---
DATE OF CONSULTATION: 11/06/2018 SUBJECTIVE: Ms. Razo is here as he started developing left arm and shoulder pain. On monitor, he was noted to be having episodes of bradyarrhythmias with continued atrial fibrillation. I was consulted by Dr. Leija for evaluation. On further questioning, he seems to be not having episodes of dizziness or unconsciousness. He seems to be a fairly good historian. He does have intermittent pulsation sensation and some fatigue associated with his chronic atrial fibrillation. His BNP was somewhat elevated. While on the monitor, he had up to 2.7-second pauses noted at times. His heart rates also dropped down to the 30s for a short period and normalizes. These episodes are not clearly occurring while he is awake. He is taking frequent naps during daytime. Rest of 12-point review of system otherwise unremarkable. PAST MEDICAL HISTORY: Significant for coronary artery disease with prior stent placements by Dr. Leija; COPD; chronic atrial fibrillation; hyperlipidemia; hypertension; BPH; history of sleep apnea, on CPAP. It is noted that the patient was a former heavy smoker. SOCIAL HISTORY: He is , prior smoker, otherwise not contributory. FAMILY HISTORY: Not contributory. OBJECTIVE: VITAL SIGNS: Blood pressure 137/72, heart rate 63, respiratory rate 16, temperature 97.5 degrees Fahrenheit. GENERAL: Alert and oriented elderly man in no apparent distress. NECK: Supple. Jugular veins not distended. CHEST: Coarse without crackles. HEART: Sounds are irregularly irregular. S1 and S2 are variable. No murmur or gallop. ABDOMEN: Benign. Bowel sounds are positive. EXTREMITIES: Lower extremities without edema, clubbing, or cyanosis. DATABASE: Telemetry strips reveal atrial fibrillation. Occasional bradyarrhythmic episodes are noted up to 2.7-second pauses. Short periods of heart rates in the 30s are seen. The patient has frequent episodes of naps and it is hard to determine when he is actually bradycardic during awake hours. EKG reveals atrial fibrillation with controlled ventricular rate. LABORATORY DATA: White cell count 6.4, hemoglobin 12.4, platelet count is 214. Sodium 131, potassium 4.2, BUN is 10, and creatinine 0.8. ASSESSMENT AND PLAN: Mr. Razo is a pleasant 88-year-old man with prior history of coronary artery disease and stent. He has preserved left ventricular ejection fraction by echocardiogram showing nearly normal left ventricular ejection fraction at 45% to 50%, [id number]-[id number] mitral regurgitation probably present, [id number]-mf-rarmdveu tricuspid regurgitation per echocardiogram. He is presenting with atypical chest pains with borderline cardiac enzyme changes only. BNP slightly elevated. He has been noted to have bradyarrhythmic episodes. It seems to be potentially related to his nap times, although it is difficult to determine, but he is not complaining of any symptoms associated with his bradycardia. He does have sleep apnea, which could expose him to the risk of sudden bradyarrhythmic episodes. We discussed pros and cons about pacing. Hence lack of symptoms at this point, continued observation is reasonable. On the other hand, if further bradycardia episodes occur with symptoms, he might need to be considered for pacemaker placement. In the meantime, to avoid sleep apnea related bradycardia. Restarting CPAP therapy might be a consideration. History of falls and chronic anticoagulation, even though a reduced dose may be suboptimal. He may be considered for Watchman device placement. I discussed the rationale for this procedure, but I think further discussion will be necessary in the office, possibly with his family members to be present. We will make arrangements for that. We will continue to monitor and follow up with you. Job ID: [id number]
== END 2018-11-06 17:24 | disposition home or self-care (01) | DRG 308 ==
LOC: ERS 03:27 → 2SW 06:09 → OBSVTOIN 06:09 → 2NO 11-05 16:01
PROVIDERS: ADMIT Hospitalist; ATTEND Hospitalist
DX: I49.5 Sick sinus syndrome (principal); I50.23 Acute on chronic systolic (congestive) heart failure; J96.10 Chronic respiratory failure, unspecified whether with hypoxia or hypercapnia; I48.2 Chronic atrial fibrillation; M19.012 Primary osteoarthritis, left shoulder; I11.0 Hypertensive heart disease with heart failure; J44.9 Chronic obstructive pulmonary disease, unspecified; F17.210 Nicotine dependence, cigarettes, uncomplicated; I25.10 Atherosclerotic heart disease of native coronary artery without angina pectoris; N40.0 Benign prostatic hyperplasia without lower urinary tract symptoms; E78.5 Hyperlipidemia, unspecified; E66.9 Obesity, unspecified; M75.102 Unspecified rotator cuff tear or rupture of left shoulder, not specified as traumatic; Z79.01 Long term (current) use of anticoagulants; Z79.82 Long term (current) use of aspirin; Z79.899 Other long term (current) drug therapy; Z99.81 Dependence on supplemental oxygen
CPT/HCPCS: 36415; 71046; 80048; 80053; 82553; 83880; 84484; 84550; 85025; 85652; 86140; 93005; 93306; J1940

== ENCOUNTER 2018-11-11 23:11 | Inpatient (IN) | payer MEDICARE ==
[2018-11-11 23:49] LABS: #Eosinphils 0.1 thou/uL (0.0-0.7); #Lymphocytes 1.2 thou/uL (1.20-3.40); #Monocytes 0.6 thou/uL (0.11-0.59); %Basophils 0.4 % (0.0-1.0); %Eosinophils 2.2 % (0.0-10.0); %Lymphocytes 20.1 % (21.0-51.0); %Monocytes 10.4 % (0.0-10.0); %Neutrophils 66.9 % (42.0-75.0); Hemoglobin 12.5 g/dL (14.0-18.0); Mean Corpuscular HGB CONC 31.5 g/dL (32.0-36.0); Mean Corpuscular Volume 95.5 fL (78.0-98.0); Mean Platelet Volume 7.7 fL (7.4-10.4); Platelet Count 246 thou/uL (130-400); RBC Distribution Width 15.3 % (11.5-14.5); Red Blood Cell (RBC) Count 4.15 mill/uL (4.70-6.10); White Blood Cell (WBC) Count 5.9 thou/uL (4.8-10.8)
[2018-11-11] MEDS ORDERED: Dexamethasone 10 MG/ML VIAL ONE (23:56)
[2018-11-11] MEDS ORDERED: Magnesium 2 GM/50 ML BAG (IN WATER) ONE (23:56)
--- NOTE | 2018-11-12 00:03 | RAD ---
XR Chest Pa Lat STANDARD History: Shortness of breath Comparison: Radiograph November 04, 2018 Findings: Large layering left pleural effusion has slightly increased in size. Small right effusion. Mild edema. Heart size is enlarged. Multiple left mildly displaced rib fractures appear chronic although the left lateral eighth rib frac ture. Relatively acute. Impression: Slight interval enlargement left layering pleural effusion with relatively acute appearin g left lateral eighth rib fracture.
[2018-11-12] MEDS ORDERED: Albuterol Sulfate 2.5 mg/3 ml Neb ONE (00:05)
[2018-11-12 00:10] LABS: Actual Bicarbonate (HCO3a) 32.2 mEq/L (22-28); Analyzer IN Cardio ER; Base Excess (BEa) 5.5 mEq/L (-2.0 to +3.0); CO2 Tension 56.2 mmHg (35.0-45.0); Calcium, Ionized 1.15 mmol/L (1.12-1.30); Carboxyhemoglobin (COHb) 2.5 gm% (0.0-3.0); Hemoglobin (Hb) 13.1 g/dL (14.0-18.0); Potassium - ABG Lab 4.58 mmol/L (3.70-5.30); pH, Arterial 7.38 (7.35-7.45)
[2018-11-12 00:11] LABS: ALT (SGPT) 20 U/L (8-55); AST (SGOT) 41 U/L (5-34); Albumin 3.5 g/dL (3.4-4.8); Alkaline Phosphatase 168 U/L (40-150); Anion Gap 13 mmol/L (10-20); BUN (Urea Nitrogen) 10 mg/dL (8.4-25.7); Bilirubin, Total 0.6 mg/dL (0.2-1.2); CK (CPK) 58 U/L (30-200); Calc. Creatinine Clearance 0 mL/min (70-130); Calcium 9.3 mg/dL (7.8-10.44); Carbon Dioxide 32 mmol/L (23-31); Chloride 95 mmol/L (98-107); Estimated GFR-MDRD 87; Globulin 3.7 g/dL (2.4-3.5); Glucose 94 mg/dL (83-110); Lipase 26 U/L (8-78); Magnesium 2.2 mg/dL (1.6-2.6); Potassium 4.7 mmol/L (3.5-5.1); Protein, Total 7.2 g/dL (5.8-8.1); Sodium 135 mmol/L (136-145)
[2018-11-12 00:17] LABS: O2 Tension (PaO2) 58.9 mmHg (> 60.0); Puncture Site L RADIAL
[2018-11-12 00:31] LABS: CKMB 1.8 ng/mL (0-6.6)
[2018-11-12] MEDS ORDERED: Aspirin Chewable 81 MG TAB ONE ×2 (01:08→01:09)
[2018-11-12] MEDS ORDERED: Ondansetron ODT 4 MG TAB SL PRN (02:05)
[2018-11-12] MEDS ORDERED: Sodium Chloride 0.9% 1,000 ML IV SCH (02:05)
[2018-11-12] MEDS ORDERED: Ondansetron PF 4 MG/2 ML Vial IVP PRN (02:05)
[2018-11-12] MEDS ORDERED: Senokot S 8.6-50 MG TAB PO PRN (04:20)
[2018-11-12] MEDS ORDERED: Bisacodyl 5 MG TAB PO PRN (04:20)
[2018-11-12] MEDS ORDERED: Furosemide 20 MG TAB PO PRN (04:23)
[2018-11-12] MEDS ORDERED: traMADol HCl 50 MG TAB PO PRN (04:23)
[2018-11-12 04:55] LABS: Troponin I 0.038 ng/mL (< 0.028)
--- NOTE | 2018-11-12 05:07 | HP ---
CHIEF COMPLAINT: Shortness of breath. HISTORY OF PRESENT ILLNESS: This patient is an 88-year-old male with a history of COPD who has home oxygen which he uses primarily when sleeping and intermittently. Otherwise, the patient was recently admitted to this facility for what appears to be symptomatic bradycardia. Ultimately, it was decided to continue to monitor him as his bradycardia could not necessarily be matched with his symptoms with regard to the timing. The patient reports that since then he has become increasingly short of breath. He has a cough that is productive of discolored dark brown sputum. He says he feels like he is inspiring well, but not expiring well. REVIEW OF SYSTEMS: Notable for some lower extremity edema. PAST MEDICAL HISTORY: COPD with oxygen dependence, coronary artery disease, hypertension, BPH, dyslipidemia, tobacco abuse. PAST SURGICAL HISTORY: Bilateral cataract-ectomies. PTCA and stenting of the right coronary, the above-mentioned bradycardia, chronic atrial fibrillation. FAMILY HISTORY: Reviewed. Nothing contributory to his current admission. SOCIAL HISTORY: The patient has a long history of smoking in the past. He smoked up to 3-4 packs a day. He is now down to a few cigarettes per day. No drugs. No alcohol. He is , lives at home with his . He is a DNR and his would be his surrogate decision maker. ALLERGIES: NONE. HOME MEDICATIONS: 1. Tramadol 50 mg q.6 hours p.r.n. 2. Anoro Ellipta one inhalation daily. 3. Tamsulosin 0.4 mg daily. 4. Rosuvastatin 10 mg q.p.m. 5. Lasix 20 mg daily p.r.n. 6. Aspirin 81 mg daily. 7. Eliquis 5 mg p.o. b.i.d. 8. Norvasc 5 mg daily. PHYSICAL EXAMINATION: VITAL SIGNS: Afebrile, pulse 76, respirations 20, O2 saturation 93% on 2 L nasal cannula, BP 142/80. GENERAL APPEARANCE: Age-appropriate male. He is in no distress. He is awake, alert, oriented, pleasant, cooperative. HEENT: PERRL. No OP lesions. He has arcus senilis. NECK: Supple and symmetric. HEART: Irregularly irregular without murmurs auscultated. LUNGS: Diminished with upper airway rhonchi noted, but otherwise fair air exchange. ABDOMEN: Soft, nontender, and nondistended. Positive bowel sounds. No masses. No organomegaly. EXTREMITIES: No cyanosis or clubbing. There is some edema that is trace in the ankles and feet bilaterally. NEUROLOGICAL: Appears to be intact with no focal deficits. He has normal cognition and spontaneous movement of all extremities. PSYCH: Normal affect and behavior. LABORATORY DATA: CBC; white count 5.9, hemoglobin 12.5, platelets 246. Blood gas; pH 7.38, pCO2 56.2, PO2 is 58.9. Sodium 135, potassium 4.7, chloride 95, CO2 is 32, BUN 10, creatinine 0.85, GFR is 87, glucose 94, AST is 41, ALT is 20, alkaline phosphatase 168. Troponin 0.058. BNP 359. Chest x-ray shows slight interval enlargement of the layering pleural effusion with relatively acute appearing left lateral 8th rib fracture and by my personal review, it appears that there may be a 7th rib fracture in the same area and appears the patient may have some additional fluid in the fissures. IMPRESSION AND PLAN: 1. Acute on chronic hypoxic respiratory failure. Continue with continuous oxygen. 2. Chronic obstructive pulmonary disease with acute bronchitis with production of discolored sputum. We will continue to cover with Levaquin, which he received in the emergency department as well as steroids and nebulizer treatments. We will also give him a dose of IV Lasix. 3. Chronic atrial fibrillation, appears to have a relatively stable rate control. We will continue with his p.o. Eliquis. He previously had some evidence of bradycardia, have not seen any of that at this time. 4. Hypertension. Continue with Norvasc. 5. Hyperlipidemia. Continue with rosuvastatin. Job ID: [id number]
[2018-11-12] MEDS: methylPREDNISolone Sod Succ 40 MG VIAL IVP SCH ×3 (05:46→17:33)
--- NOTE | 2018-11-12 06:39 | PDOC.EVN ---
Event Note - Event Note Event Note: Patient clarified that he does want to be full code, but does not want it to be prolonged. Order changed.
[2018-11-12 08:00] LABS: Troponin I 0.035 ng/mL (< 0.028)
[2018-11-12] MEDS ORDERED: Dexamethasone 4 mg/ml Vial SLOW IVP SCH (09:00)
[2018-11-12] MEDS ORDERED: Aspirin Chewable 81 MG TAB PO SCH (09:00)
[2018-11-12] MEDS: Apixaban 5 MG TAB PO SCH (09:23)
[2018-11-12] MEDS: Amlodipine 5 MG TAB PO SCH (09:24)
[2018-11-12] MEDS: Aspirin 81 mg Enteric Coated Tablet PO SCH (09:24)
[2018-11-12] MEDS: Famotidine 20 MG TAB PO SCH ×2 (09:24→20:06)
[2018-11-12] MEDS: Tamsulosin HCl 0.4 MG CAP PO SCH (09:25)
--- NOTE | 2018-11-12 18:54 | PDOC.HOSPP ---
- Subjective Subjective: patient seen and examined. Breathing much better per patient. Patient states that he was just recently at rehab a few weeks ago. Patient has home health, however despite home health he returns to acute care hospital only 6 days after he was discharged. [facility] care may be required if patient unable to care for himself at home. - Objective Vital Signs & Weight: Vital Signs (12 hours) Temp Pulse Resp BP BP Pulse Ox 11/12/18 15:10 97.9 F 11/12/18 12:43 130/74 139/84 11/12/18 10:26 97.6 F 11/12/18 10:23 66 20 100 11/12/18 09:24 76 11/12/18 07:48 95 11/12/18 07:08 98.0 F Weight Weight 205 lb 0.478 oz Most Recent Monitor Data NIBP 139/84 NIBP BP-Mean 102 SpO2 100 I&O: 11/11/18 11/12/18 11/13/18 06:59 06:59 06:59 Intake Total 1150 Output Total 350 Balance 800 Result Diagrams: 11/11/18 23:46 11/11/18 23:41 ROS - Medication Medications: Active Medications Generic Name Dose Route Start Last Admin Trade Name Freq PRN Reason Stop Dose Admin Amlodipine Besylate 5 mg 11/12/18 09:00 11/12/18 09:24 Norvasc PO 5 mg DAILY FREDY Administration Apixaban 5 mg 11/12/18 09:00 11/12/18 09:23 Eliquis PO 5 mg Q2DAYS FREDY Administration Aspirin 81 mg 11/12/18 09:00 11/12/18 09:24 Ecotrin PO 81 mg DAILY FREDY Administration Famotidine 20 mg 11/12/18 09:00 11/12/18 09:24 Pepcid PO 20 mg BID FREDY Administration Methylprednisolone Sodium Succinate 40 mg 11/12/18 06:00 11/12/18 17:33 Solu-Medrol IVP 40 mg Q6HR FREDY Administration Tamsulosin HCl 0.4 mg 11/12/18 09:00 11/12/18 09:25 Flomax PO 0.4 mg DAILY FREDY Administration - Exam NAD, awake alert Eye: PERRL, anicteric sclera ENT: normocephalic atraumatic, moist mucosa Neck: supple, symmetric Heart: RRR, no murmur, no gallops, no rubs Respiratory: no rales, no ronchi, normal chest expansion, no tachypnea, wheezes Gastrointestinal: soft, non-tender, normal bowel sounds, no palpable masses Extremities: 1+ LE edema Skin: no rashes Neurological: CN's grossly intact, normal sensation to touch, no weakness Musculoskeletal: normal tone, normal strength Psychiatric: normal affect, oriented to person, oriented to place Hosp A/P (1) CHF (congestive heart failure) Code(s): I50.9 - HEART FAILURE, UNSPECIFIED Status: Acute Qualifiers: Heart failure chronicity: acute on chronic (2) Hyponatremia Code(s): E87.1 - HYPO-OSMOLALITY AND HYPONATREMIA Status: Acute (3) Afib Code(s): I48.91 - UNSPECIFIED ATRIAL FIBRILLATION Status: Chronic Qualifiers: Atrial fibrillation type: chronic Qualified Code(s): I48.2 - Chronic atrial fibrillation (4) CAD (coronary artery disease) Code(s): I25.10 - ATHSCL HEART DISEASE OF [place] CORONARY ARTERY W/O ANG PCTRS Status: Chronic Qualifiers: Coronary Disease-Associated Artery/Lesion type: [place] artery [place] vs. transplanted heart: [place] heart Associated angina: without angina Qualified Code(s): I25.10 - Atherosclerotic heart disease of [place] coronary artery without angina pectoris (5) COPD (chronic obstructive pulmonary disease) Status: Chronic Qualifiers: COPD type: unspecified COPD Qualified Code(s): J44.9 - Chronic obstructive pulmonary disease, unspecified (6) Chronic anticoagulation Code(s): Z79.01 - CORRECTION (CURRENT) USE OF ANTICOAGULANTS Status: Chronic (7) Chronic atrial fibrillation Code(s): I48.2 - CHRONIC ATRIAL FIBRILLATION Status: Chronic (8) HTN (hypertension) Code(s): I10 - ESSENTIAL (PRIMARY) HYPERTENSION Status: Chronic Qualifiers: Hypertension type: essential hypertension Qualified Code(s): I10 - Essential (primary) hypertension - Plan Plan: IV antibiotics IV steroids SVNs scheduled and PRN Continue anticoagulation with Eliquis Chronic bradycardia, has been recently evaluated by cardiology who did not recommend PPM or AICD - they do recommend follow up in the outpatient clinic Continue home meds as able DVT PPX - Eliquis for Afib GI PPX
[2018-11-12] MEDS: Rosuvastatin 10 MG TAB PO SCH (20:06)
[2018-11-13] MEDS: methylPREDNISolone Sod Succ 40 MG VIAL IVP SCH ×4 (00:37→17:42)
[2018-11-13] MEDS: Tamsulosin HCl 0.4 MG CAP PO SCH (09:13)
[2018-11-13] MEDS: Famotidine 20 MG TAB PO SCH ×2 (09:13→20:40)
[2018-11-13] MEDS: Amlodipine 5 MG TAB PO SCH (09:13)
[2018-11-13] MEDS: Aspirin 81 mg Enteric Coated Tablet PO SCH (09:13)
--- NOTE | 2018-11-13 15:02 | PDOC.HOSPP ---
- Subjective Subjective: Seen and examined. Patient breathing more comfortable. No bradycardia since admission. Overall clinically improving. Palliative care consult requested for goals of care. - Objective Vital Signs & Weight: Vital Signs (12 hours) Temp Pulse Pulse Pulse Resp BP BP 11/13/18 10:53 98.6 F 11/13/18 10:44 73 107 H 147/66 H 159/82 H 11/13/18 09:13 81 11/13/18 08:00 11/13/18 07:12 97.6 F 11/13/18 04:00 78 18 11/13/18 03:28 97.3 F L Pulse Ox Pulse Ox Pulse Ox Pulse Ox 11/13/18 10:53 11/13/18 10:44 84 L 96 94 L 11/13/18 09:13 11/13/18 08:00 98 11/13/18 07:12 11/13/18 04:00 11/13/18 03:28 Weight Weight 205 lb 0.478 oz Most Recent Monitor Data NIBP 159/82 NIBP BP-Mean 107 SpO2 98 I&O: 11/12/18 11/13/18 11/14/18 06:59 06:59 06:59 Intake Total 1780 Output Total 1150 Balance 630 Result Diagrams: 11/11/18 23:46 11/11/18 23:41 ROS - Medication Medications: Active Medications Generic Name Dose Route Start Last Admin Trade Name Freq PRN Reason Stop Dose Admin Amlodipine Besylate 5 mg 11/12/18 09:00 11/13/18 09:13 Norvasc PO 5 mg DAILY FREDY Administration Apixaban 5 mg 11/12/18 09:00 11/12/18 09:23 Eliquis PO 5 mg Q2DAYS FREDY Administration Aspirin 81 mg 11/12/18 09:00 11/13/18 09:13 Ecotrin PO 81 mg DAILY FREDY Administration Famotidine 20 mg 11/12/18 09:00 11/13/18 09:13 Pepcid PO 20 mg BID FREDY Administration Levofloxacin 750 mg/ Device 150 mls @ 100 mls/hr 11/13/18 01:00 11/13/18 00: 36 IVPB 150 mls Q24HR FREDY Administration Methylprednisolone Sodium Succinate 40 mg 11/12/18 06:00 11/13/18 12:35 Solu-Medrol IVP 40 mg Q6HR FREDY Administration Rosuvastatin Calcium 10 mg 11/12/18 21:00 11/12/18 20:06 Crestor PO 10 mg QPM FREDY Administration Tamsulosin HCl 0.4 mg 11/12/18 09:00 11/13/18 09:13 Flomax PO 0.4 mg DAILY FREDY Administration - Exam NAD, awake alert Eye: PERRL, anicteric sclera Eye - other findings: EOMI ENT: moist mucosa Neck: supple, symmetric Heart: no murmur, no gallops, no rubs, irregular Heart - other findings: S1 and S2 present Respiratory: no ronchi, normal chest expansion, rales (Faint and improving) Gastrointestinal: soft, non-tender, non-distended Extremities: 1+ LE edema Neurological: CN's grossly intact, no focal deficits, no new deficit Psychiatric: normal affect, oriented to person, oriented to place Hosp A/P (1) CHF (congestive heart failure) Code(s): I50.9 - HEART FAILURE, UNSPECIFIED Status: Acute Qualifiers: Heart failure chronicity: acute on chronic (2) Hyponatremia Code(s): E87.1 - HYPO-OSMOLALITY AND HYPONATREMIA Status: Acute (3) Afib Code(s): I48.91 - UNSPECIFIED ATRIAL FIBRILLATION Status: Chronic Qualifiers: Atrial fibrillation type: chronic Qualified Code(s): I48.2 - Chronic atrial fibrillation (4) CAD (coronary artery disease) Code(s): I25.10 - ATHSCL HEART DISEASE OF [place] CORONARY ARTERY W/O ANG PCTRS Status: Chronic Qualifiers: Coronary Disease-Associated Artery/Lesion type: [place] artery [place] vs. transplanted heart: [place] heart Associated angina: without angina Qualified Code(s): I25.10 - Atherosclerotic heart disease of [place] coronary artery without angina pectoris (5) COPD (chronic obstructive pulmonary disease) Status: Chronic Qualifiers: COPD type: unspecified COPD Qualified Code(s): J44.9 - Chronic obstructive pulmonary disease, unspecified (6) Chronic anticoagulation Code(s): Z79.01 - IT SYSTEMS ADMINISTRATOR (CURRENT) USE OF ANTICOAGULANTS Status: Chronic (7) Chronic atrial fibrillation Code(s): I48.2 - CHRONIC ATRIAL FIBRILLATION Status: Chronic (8) HTN (hypertension) Code(s): I10 - ESSENTIAL (PRIMARY) HYPERTENSION Status: Chronic Qualifiers: Hypertension type: essential hypertension Qualified Code(s): I10 - Essential (primary) hypertension - Plan Plan: IV antibiotics IV steroids SVNs scheduled and PRN Continue anticoagulation with Eliquis Chronic bradycardia, has been recently evaluated by cardiology who did not recommend PPM or AICD - they do recommend follow up in the outpatient clinic Continue home meds as able DVT PPX - Eliquis for Afib GI PPX With several admissions to the hospital, SNF, and several fall I agree with a Palliative care consultation for goals of care. Very high risk for return to acute with numerous medical commodities Patient likely ready medically for D/c from acute care hospital in the next 24 hours if he continues to improve
[2018-11-13] MEDS: Nicotine 21 MG PATCH TOP SCH (18:51)
[2018-11-13] MEDS ORDERED: diphenhydrAMINE 50 MG/ML VIAL IVPB SCH (20:15)
[2018-11-13] MEDS: Rosuvastatin 10 MG TAB PO SCH (20:40)
[2018-11-14] MEDS: methylPREDNISolone Sod Succ 40 MG VIAL IVP SCH ×4 (00:23→17:02)
[2018-11-14] MEDS: Aspirin 81 mg Enteric Coated Tablet PO SCH (09:23)
[2018-11-14] MEDS: Famotidine 20 MG TAB PO SCH ×2 (09:23→20:32)
[2018-11-14] MEDS: Amlodipine 5 MG TAB PO SCH (09:23)
[2018-11-14] MEDS: Apixaban 5 MG TAB PO SCH (10:05)
[2018-11-14] MEDS: Tamsulosin HCl 0.4 MG CAP PO SCH (10:05)
--- NOTE | 2018-11-14 10:50 | PQF ---
ERUM AGUIRRE YOJANA SANTOS [id number] CLINICAL DOCUMENTATION IMPROVEMENT CLARIFICATION FORM: ICD-10 Updated PLEASE DO AN ADDENDUM TO THE PROGRESS NOTE WITH ANY DOCUMENTATION UPDATES OR ADDITIONS AND CARRY THROUGH TO DC SUMMARY. THANK YOU. DATE: 11/14/2018 ATTN:DR. Vladimir MCLEAN Please exercise your independent, professional judgment in responding to the clarification form. Clinical indicators are provided on the bottom of this form for your review. Please check appropriate box(s): ACUTE ON CHRONIC HEART FAILURE: A. TYPE: [ ] Systolic / HFrEF [ ] Diastolic / HFpEF [ XX ] Combined Systolic / Diastolic [ ] Other diagnosis [ ] Unable to determine In addition, please specify: Present on Admission (POA): [ XX ] Yes [ ] No [ ] Unable to determine For continuity of documentation, please document condition throughout progress notes and discharge summary. Thank You. CLINICAL INDICATORS - SIGNS / SYMPTOMS / LABS 11/11 ED PHYSICIAN DX: ACUTE HYPOXIA W COPD EXACERBATION 11/11 BNP 359.0 11/11 CHEST X-RAY -- IMPRESSION: SLIGHT INTERVAL ENLARGEMENT LEFT LAYERING PLEURAL EFFUSION WITH RELATIVELY ACUTE APPEARING LEFT LATERAL EIGHT RIB FX. 11/12 H&P (FICKLEN) CHEST X-RAY SHOWS SOME SLIGHT INTERVAL ENLARGEMENT OF THE LAYERING PLEURAL EFFUSION WITH RELATIVELY ACUTE APPEARING LEFT LATERAL 8TH RIB FX AND BY MY PERSONAL REVIEW, IT APPEARS THAT THERE MAY BE A 7TH RIB FX IN THE SAME AREA AND APPEARS THE PATIENT MAY HAVE SOME ADDITIONAL FLUID IN THE FISSURES. 11/12 - 11/13 PN (VINAY) A/P: ACUTE ON CHRONIC CONGESTIVE HEART FAILURE RISK: COPD W/ OXYGEN DEPENDENCE (FICKLEN) ACUTE ON CHRONIC RESP FAILURE (FICKLEN) TOBACCO ABUSE, HX CAD, HTN ADVANCED AGE (88) TREATMENTS: SUPPLEMENTAL OXYGEN NEBULIZER TREATMENTS THANK YOU! SHON (This form is maintained as a part of the permanent medical record) 2014 [employer]. All Rights Reserved [email or web address] [phone] MTDD
--- NOTE | 2018-11-14 11:11 | PQF ---
ERUM AGUIRRE DR. YOJANA [id number] CLINICAL DOCUMENTATION IMPROVEMENT CLARIFICATION FORM: ICD-10 Updated PLEASE DO AN ADDENDUM TO THE PROGRESS NOTE WITH ANY DOCUMENTATION UPDATES OR ADDITIONS AND CARRY THROUGH TO DC SUMMARY. THANK YOU. DATE: 11/14/18 ATTN:DR. Kandy MCLEAN Please exercise your independent, professional judgment in responding to the clarification form. Clinical indicators are provided on the bottom of this form for your review. Please check appropriate box(s): [ ] NSTEMI (MN type I) [ ] NSTEMI due to Demand Ischemia (AMI Type II) [ XX ] Demand Ischemia without MN [ ] Other diagnosis [ ] Unable to determine In addition, please specify: Present on Admission (POA): [ XX ] Yes [ ] No [ ] Unable to determine CLINICAL INDICATORS - SIGNS / SYMPTOMS / LABS 11/11 TROPONIN I 0.058 0.038 0.035 11/11 ED REPORT: PT REPORT FOR SOB, RECENTLY HOSPITALIZED FOR SYMPTOMATIC BRADYCARDIA IN WHICH HE HAS SEEN DR. GOMES. THOUGHT TO BE RELATED TO HIS HUMPHREY BUT PLANS WERE MADE TO CONTINUE OBSERVING WITH POTENTIAL FOR PACEMAKER PLACEMENT. RISK: ACUTE ON CHRONIC RESP FAILURE (FICKLEN) ACUTE COPD EXACERBATION W BRONCHITIS ( FICKLEN) HX CAD, S/P MN W STENTS CURRENT TOBACCO ABUSE TREATMENTS: SUPPLEMENTAL OXYGEN CONTINUOUS TELEMETRY MONITORING THANK YOU! SHON (This form is maintained as a part of the permanent medical record) 2014 [employer] All Rights Reserved [email or web address] [phone] MTDD
--- NOTE | 2018-11-14 12:53 | PDOC.PALCO ---
Palliative Care Consult - Consult Details Requesting Physician: Dr Casanova Reason for Consult: goals of care Family Members Present: None - Pertinent HPI 88 year old male evaluated and admitted for bradycardia and increase in shortness of breath. Palliative Care consult for goals of care. - Pertinent PMH O2 dependent with COPD, CAD, HTN, BPH, Dyslipidemia, chronic tobacco use. - Social History Smoking Status: Current every day smoker Smoking: cigarettes Alcohol Use: none Drug Use History: none Living Situation: ( for 67 years) - Medications MAR Reviewed: Yes - Allergies Allergies/Adverse Reactions: Allergies Allergy/AdvReac Type Severity Reaction Status Date / Time No Known Allergies Allergy Verified 11/04/18 08:58 - Subjective Sitting on side of bed, significant shortness of breath. O2 dependent. Weak productive cough, increase in weakness. ROS: negative with the exception of above mentioned system complaints. - Objective Vital Signs: Vital Signs - Most Recent Temp Pulse Resp BP Pulse Ox 97.8 F 76 20 144/74 H 87 L 11/14/18 11:50 11/14/18 11:50 11/14/18 11:50 11/14/18 11:50 11/14/18 11:50 Palliative Performance Scale: 60 - Advance Directives Medical Power of Marine Safety Officer: Family membe "Anita" - Physical Exam Constitutional: NAD Deviation from normal: Chronically Ill appearing HEENT: moist MMs, EOMI Deviation from normal: Labored respiraitons, weak productive cough, diminished to base, adventicio Cardiovascular: no significant murmur, irregular Gastrointestinal: soft, non-tender Psychiatric: normal affect Deviation from normal: fragile skin - Problem List (1) Palliative care encounter Code(s): Z51.5 - ENCOUNTER FOR PALLIATIVE CARE Current Visit: Yes Status: Acute (2) CHF (congestive heart failure) Code(s): I50.9 - HEART FAILURE, UNSPECIFIED Current Visit: No Status: Acute Qualifiers: Heart failure chronicity: acute on chronic (3) COPD (chronic obstructive pulmonary disease) Current Visit: No Status: Chronic Qualifiers: COPD type: unspecified COPD Qualified Code(s): J44.9 - Chronic obstructive pulmonary disease, unspecified - Plan/Recommendations Plan: Initial Palliative Care contact by Shira Meza RN, visited with patient and identified MPOA and patient desire to return home with home health. My visit was limited, has expressed to staff her concern in taking patient home secondary to decline. CM called and ensured that patient would be seen tomorrow 11/15 by home health for initiation of care. CM Expressed that order was written for patient to be placed in a skilled facility prior to home to transition. *reinforce and continue to educate in relation to chronic disease process and expected trajectory *Difficult to identify goals for patient at this time, hoping for family assistance. He still desires a pacemaker and has been educated on cardiology does not feel it is appropriate at this time. Mr Razo desires to return home, however order written for placement as patient weak and not certain she is able to care for him at home Discharge with home health, confirmed with home health visit tomorrow 11/15 by NAVI Meza gaming surveillance observer will continue to follow and I will assist as needed. [50] minutes spent on this encounter with >50% of the time in counseling and coordination of care. Thank you for this very appropriate consult.
[2018-11-14] MEDS: Nicotine 21 MG PATCH TOP SCH (17:01)
[2018-11-14] MEDS: Rosuvastatin 10 MG TAB PO SCH (20:32)
[2018-11-15] MEDS: methylPREDNISolone Sod Succ 40 MG VIAL IVP SCH ×4 (00:51→17:26)
[2018-11-15] MEDS: Aspirin 81 mg Enteric Coated Tablet PO SCH (08:44)
[2018-11-15] MEDS: Amlodipine 5 MG TAB PO SCH (08:44)
[2018-11-15] MEDS: Famotidine 20 MG TAB PO SCH ×2 (08:44→20:31)
[2018-11-15] MEDS: Tamsulosin HCl 0.4 MG CAP PO SCH (08:44)
--- NOTE | 2018-11-15 11:11 | DIS ---
DATE OF ADMISSION: 11/12/2018 DATE OF DISCHARGE: 11/14/2018 REASON FOR HOSPITALIZATION: Shortness of breath. SIGNIFICANT FINDINGS: steroids, IV antibiotics, PROCEDURES PERFORMED AND TREATMENTS RENDERED: The patient was placed on maximum medical therapy for COPD exacerbation with good improvement. CONDITION ON DISCHARGE: Stable. SPECIFIC INSTRUCTIONS FOR PATIENT/FAMILY: 1. The patient had a long discussion with palliative Care and he continues to wish to be full code, I recommend that he follow up with his primary care physician for further recommendations. 2. The patient to follow up with machine veneer repairer in the next 1 to 2 weeks-or return to acute care hospital immediately for re-evaluation. 3. The patient to follow up with ui ux web developer in the next 1 to 2 weeks-or return to acute care hospital immediately for re-evaluation. 4. The patient recommended to complete a full course of oral antibiotics and oral steroids for resolution of symptoms. DISCHARGE DIAGNOSES: 1. Acute chronic obstructive pulmonary disease exacerbation, cardiomyopathy. 2. Atrial fibrillation. 3. Hypertension. 4. Benign prostatic hyperplasia. HOME MEDICATIONS: 1. Tramadol 50 mg one tablet p.o. p.r.n. pain. 2. Crestor 10 mg one tablet p.o. q.p.m. 3. Breo Ellipta one inhalation daily. 4. Lasix 20 mg one tablet p.o. daily. 5. Aspirin 81 mg one tablet p.o. daily. 6. Tamsulosin 0.4 mg one tablet p.o. daily. 7. Eliquis 5 mg one tablet p.o. b.i.d. 8. Amlodipine 5 mg one tablet p.o. daily. 9. Medrol Dosepak use as directed. 10. Levaquin 750 mg one tablet p.o. daily for an additional 5 days. 11. DuoNeb q.4 hours p.r.n. shortness of breath. HISTORY OF PRESENT ILLNESS: Mr. 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 The patient presented to acute care hospital at [facility] on 11/12/2018 with shortness of breath. The patient diagnosed with acute COPD exacerbation, placed on IV steroids, IV antibiotics, and small volume nebulizers scheduled as needed. Heart failure did not seem to be a major player in this patient's shortness of breath with a BNP of 359. The patient had a chest x-ray that did not demonstrate overt heart failure, there is pleural effusion that is similar to size from patient's hospitalization roughly 6 days ago. There had been discussion on prior admission about the patient receiving a pacemaker, Cardiology ultimately decided that no pacemaker was indicated at that time, but the patient would need outpatient followup. Over patient's hospitalization, he did improve daily returning to his baseline O2 requirements of nasal cannula. The patient was seen by Palliative Care, please see full consultation notes for details. After long discussion with Palliative Care, the patient still desires to be a full cardiac code resuscitation, we will honor the patient's wishes and have him further discuss this with his primary care physician as outpatient. The patient recommended safe for discharge on 11/14/2018. The patient unable to care for himself in the setting and his elderly and granddaughter are also not able to care for him. With further discussion, it was recommended that the patient go to [facility] facility. The patient recommended to continue all home medications as directed in addition to the patient's new medications. The patient recommended to complete a full course of oral antibiotics with Levaquin for the next 5 days. The patient recommended to complete a full course of oral steroids with Medrol Dosepak. The patient recommended small volume nebulizers p.r.n. shortness of breath. The patient recommended to abstain from nicotine/tobacco use with his end-stage COPD. The patient recommended to return to acute care hospital immediately if signs or symptoms return, worsen. Greater than 33 minutes spent coordinating care and discharge process. Job ID: [id number] MTDD
--- NOTE | 2018-11-15 15:58 | PDOC.PALPN ---
Palliative Progress Note - Subjective Patient in bed, O2 dependent. Tearful, stats he missed his , mild confusion. - Objective Vital Signs: Vital Signs - Most Recent Temp Pulse Resp BP Pulse Ox 97.7 F 75 16 156/79 H 93 L 11/15/18 08:00 11/15/18 08:44 11/15/18 08:00 11/15/18 08:00 11/15/18 08:00 - Physical Exam Constitutional: confusion Deviation from normal: chronically ill appearing HEENT: moist MMs, EOMI Respiratory: tachypnea Deviation from normal: push of speech,audible expriatory wheeze expiration at bedside, wet cough Gastrointestinal: soft Musculoskeletal: edema present Deviation from normal: Bursing in various stages of healing - Assessment (1) Palliative care encounter Code(s): Z51.5 - ENCOUNTER FOR PALLIATIVE CARE Current Visit: Yes Status: Acute (2) CHF (congestive heart failure) Code(s): I50.9 - HEART FAILURE, UNSPECIFIED Current Visit: No Status: Acute Qualifiers: Heart failure chronicity: acute on chronic (3) COPD (chronic obstructive pulmonary disease) Current Visit: No Status: Chronic Qualifiers: COPD type: unspecified COPD Qualified Code(s): J44.9 - Chronic obstructive pulmonary disease, unspecified - Plan Plan: Therapeutic listening. Recent increase in labile emotional state. Confused. Patient is giving a life review in conversations. Patient was denied placement at facility, being evaluated by rehab today. *Placement in rehab at discharge *Shira Meza dipper clock and watch hands to contact family to increase support with family friend to provide company for patient. *Spiritual Care consult to add layer of emotional support for patient. *Will contact volunteer services to identify resource for therapeutic presence/ listening *Hold off on medication intervention at this time and re-evaluate 11/16 [60] minutes spent on this encounter with >50% of the time in counseling and coordination of care.
--- NOTE | 2018-11-15 16:09 | PDOC.HOSPP ---
- Subjective Encounter Date: 11/15/18 Encounter Time: 14:00 Subjective: Patient seen and examined. No new complaints. No overnight events - Objective Vital Signs & Weight: Vital Signs (12 hours) Temp Pulse Resp BP Pulse Ox 11/15/18 08:44 75 11/15/18 08:00 97.7 F 69 16 156/79 H 93 L 11/15/18 07:32 75 20 95 Weight Weight 205 lb 0.478 oz Most Recent Monitor Data NIBP 128/111 NIBP BP-Mean 116 SpO2 91 I&O: 11/14/18 11/15/18 11/16/18 06:59 06:59 06:59 Intake Total 1470 632 Output Total 225 1425 Balance 1245 -793 Result Diagrams: 11/11/18 23:46 11/11/18 23:41 ROS - Review of Systems Eyes: denies: pain, vision change, conjunctivae inflammation, eyelid inflammation, redness, other ENT: denies: ear pain, ear discharge, nose pain, nose discharge, nose congestion , mouth pain, mouth swelling, throat pain, throat swelling, other Respiratory: denies: cough, dry, shortness of breath, hemoptysis, SOB with excertion, pleuritic pain, sputum, wheezing, other Cardiovascular: denies: chest pain, palpitations, orthopnea, paroxysmal noc. dyspnea, edema, light headedness, other Gastrointestinal: denies: nausea, vomitting, abdominal pain, diarrhea, constipation, melena, hematochezia, other Genitourinary: denies: dysuria, frequency, incontinence, hematuria, retention, other Musculoskeletal: denies: neck pain, shoulder pain, arm pain, back pain, hand pain, leg pain, foot pain, other - Medication Medications: Active Medications Generic Name Dose Route Start Last Admin Trade Name Freq PRN Reason Stop Dose Admin Albuterol/Ipratropium 3 ml 11/12/18 04:17 11/15/18 14:17 Duoneb NEB 3 ml [id number] PRN Administration SOB &/or Wheezing Amlodipine Besylate 5 mg 11/12/18 09:00 11/15/18 08:44 Norvasc PO 5 mg DAILY FREDY Administration Apixaban 5 mg 11/12/18 09:00 11/14/18 10:05 Eliquis PO 5 mg Q2DAYS FREDY Administration Aspirin 81 mg 11/12/18 09:00 11/15/18 08:44 Ecotrin PO 81 mg DAILY FREDY Administration Famotidine 20 mg 11/12/18 09:00 11/15/18 08:44 Pepcid PO 20 mg BID FREDY Administration Levofloxacin 750 mg/ Device 150 mls @ 100 mls/hr 11/15/18 06:00 11/15/18 06: 06 IVPB 150 mls 0600 FREDY Administration Methylprednisolone Sodium Succinate 40 mg 11/12/18 06:00 11/15/18 13:05 Solu-Medrol IVP 40 mg Q6HR FREDY Administration Nicotine 21 mg 11/13/18 17:00 11/14/18 17:01 Nicoderm Patch TOP 21 mg 1700 FREDY Administration Rosuvastatin Calcium 10 mg 11/12/18 21:00 11/14/18 20:32 Crestor PO 10 mg QPM FREDY Administration Tamsulosin HCl 0.4 mg 11/12/18 09:00 11/15/18 08:44 Flomax PO 0.4 mg DAILY FREDY Administration - Exam NAD, awake alert Eye: PERRL, anicteric sclera ENT: normocephalic atraumatic, no oropharyngeal lesions Neck: supple, symmetric, no JVD Heart: RRR, no murmur, no gallops Respiratory: CTAB, no wheezes, no rales Gastrointestinal: soft, non-tender, non-distended Extremities: no cyanosis, no clubbing Skin: normal turgor, no lesions Neurological: CN's grossly intact, no new deficit Musculoskeletal: normal tone, normal strength Psychiatric: normal affect, normal behavior Hosp A/P (1) CHF (congestive heart failure) Code(s): I50.9 - HEART FAILURE, UNSPECIFIED Status: Acute Qualifiers: Heart failure chronicity: acute on chronic (2) CAD (coronary artery disease) Code(s): I25.10 - ATHSCL HEART DISEASE OF [place] CORONARY ARTERY W/O ANG PCTRS Status: Chronic Qualifiers: Coronary Disease-Associated Artery/Lesion type: [place] artery [place] vs. transplanted heart: [place] heart Associated angina: without angina Qualified Code(s): I25.10 - Atherosclerotic heart disease of [place] coronary artery without angina pectoris (3) COPD (chronic obstructive pulmonary disease) Status: Chronic Qualifiers: COPD type: unspecified COPD Qualified Code(s): J44.9 - Chronic obstructive pulmonary disease, unspecified (4) Chronic anticoagulation Code(s): Z79.01 - NURSING HOME (CURRENT) USE OF ANTICOAGULANTS Status: Chronic (5) Chronic atrial fibrillation Code(s): I48.2 - CHRONIC ATRIAL FIBRILLATION Status: Chronic (6) HTN (hypertension) Code(s): I10 - ESSENTIAL (PRIMARY) HYPERTENSION Status: Chronic Qualifiers: Hypertension type: essential hypertension Qualified Code(s): I10 - Essential (primary) hypertension - Plan old records reviewed/req, social and human services assistant medication reviewed as above symptomatic treatment await placement stable
[2018-11-15] MEDS: Nicotine 21 MG PATCH TOP SCH (17:28)
[2018-11-15] MEDS: Rosuvastatin 10 MG TAB PO SCH (20:31)
[2018-11-16] MEDS: methylPREDNISolone Sod Succ 40 MG VIAL IVP SCH ×3 (00:29→12:43)
[2018-11-16] MEDS: Aspirin 81 mg Enteric Coated Tablet PO SCH (08:16)
[2018-11-16] MEDS: Tamsulosin HCl 0.4 MG CAP PO SCH (08:16)
[2018-11-16] MEDS: Amlodipine 5 MG TAB PO SCH (08:17)
[2018-11-16] MEDS: Famotidine 20 MG TAB PO SCH ×2 (08:17→19:31)
[2018-11-16] MEDS: Apixaban 5 MG TAB PO SCH (08:17)
--- NOTE | 2018-11-16 12:19 | PDOC.HOSPP ---
- Subjective Encounter Date: 11/16/18 Encounter Time: 11:00 Subjective: awake, no sob or abd pain at bedside - Objective Vital Signs & Weight: Vital Signs (12 hours) Temp Pulse Resp BP Pulse Ox 11/16/18 08:17 85 11/16/18 08:00 90 L 11/16/18 07:40 98.1 F 82 20 139/81 90 L 11/16/18 07:08 85 16 94 L Weight Weight 209 lb 8 oz Most Recent Monitor Data NIBP 128/111 NIBP BP-Mean 116 SpO2 91 I&O: 11/15/18 11/16/18 11/17/18 06:59 06:59 06:59 Intake Total 632 400 Output Total 1427 1024 Balance -557 -962 Result Diagrams: 11/11/18 23:46 11/11/18 23:41 ROS - Medication Medications: Active Medications Generic Name Dose Route Start Last Admin Trade Name Freq PRN Reason Stop Dose Admin Albuterol/Ipratropium 3 ml 11/12/18 04:17 11/16/18 07:08 Duoneb NEB 3 ml [id number] PRN Administration SOB &/or Wheezing Amlodipine Besylate 5 mg 11/12/18 09:00 11/16/18 08:17 Norvasc PO 5 mg DAILY FREDY Administration Apixaban 5 mg 11/12/18 09:00 11/16/18 08:17 Eliquis PO 5 mg Q2DAYS FREDY Administration Aspirin 81 mg 11/12/18 09:00 11/16/18 08:16 Ecotrin PO 81 mg DAILY FREDY Administration Famotidine 20 mg 11/12/18 09:00 11/16/18 08:17 Pepcid PO 20 mg BID FREDY Administration Levofloxacin 750 mg/ Device 150 mls @ 100 mls/hr 11/15/18 06:00 11/16/18 05: 32 IVPB 150 mls 0600 FREDY Administration Methylprednisolone Sodium Succinate 40 mg 11/12/18 06:00 11/16/18 05:32 Solu-Medrol IVP 40 mg Q6HR FREDY Administration Nicotine 21 mg 11/13/18 17:00 11/15/18 17:28 Nicoderm Patch TOP 21 mg 1700 FREDY Administration Rosuvastatin Calcium 10 mg 11/12/18 21:00 11/15/18 20:31 Crestor PO 10 mg QPM FREDY Administration Sodium Chloride 10 ml 11/16/18 09:00 11/16/18 08:17 Flush - Normal Saline IVF 10 ml Q12HR FREDY Administration Sodium Chloride 10 ml 11/16/18 02:26 11/16/18 05:32 Flush - Normal Saline IVF 10 ml PRN PRN Administration Saline Flush Tamsulosin HCl 0.4 mg 11/12/18 09:00 11/16/18 08:16 Flomax PO 0.4 mg DAILY FREDY Administration - Exam awake alert Eye: PERRL, anicteric sclera ENT: no oropharyngeal lesions, moist mucosa Neck: supple, no JVD Heart: RRR, no gallops Respiratory: no wheezes, no rales Gastrointestinal: soft, non-tender, normal bowel sounds Extremities: no cyanosis, no clubbing Skin: no rashes Neurological: CN's grossly intact, no focal deficits Hosp A/P (1) CHF (congestive heart failure) Code(s): I50.9 - HEART FAILURE, UNSPECIFIED Status: Acute Qualifiers: Heart failure chronicity: acute on chronic (2) Afib Code(s): I48.91 - UNSPECIFIED ATRIAL FIBRILLATION Status: Chronic Qualifiers: Atrial fibrillation type: chronic Qualified Code(s): I48.2 - Chronic atrial fibrillation (3) CAD (coronary artery disease) Code(s): I25.10 - ATHSCL HEART DISEASE OF [place] CORONARY ARTERY W/O ANG PCTRS Status: Chronic Qualifiers: Coronary Disease-Associated Artery/Lesion type: [place] artery [place] vs. transplanted heart: [place] heart Associated angina: without angina Qualified Code(s): I25.10 - Atherosclerotic heart disease of [place] coronary artery without angina pectoris (4) COPD (chronic obstructive pulmonary disease) Status: Chronic Qualifiers: COPD type: unspecified COPD Qualified Code(s): J44.9 - Chronic obstructive pulmonary disease, unspecified (5) Chronic anticoagulation Code(s): Z79.01 - REVENUE CYCLE CONSULTANT (CURRENT) USE OF ANTICOAGULANTS Status: Chronic (6) Chronic atrial fibrillation Code(s): I48.2 - CHRONIC ATRIAL FIBRILLATION Status: Chronic (7) HTN (hypertension) Code(s): I10 - ESSENTIAL (PRIMARY) HYPERTENSION Status: Chronic Qualifiers: Hypertension type: essential hypertension Qualified Code(s): I10 - Essential (primary) hypertension (8) Physical deconditioning Code(s): R53.81 - OTHER [place] Status: Acute - Plan awaiting rehab eval/placement hemostable change steroids to oral, levaquin x 3 days and dc continue norvasc, eliquis, asp, crestor, nebs d/w patient and at bedside Review of Systems - Medications/Allergies Allergies/Adverse Reactions: Allergies Allergy/AdvReac Type Severity Reaction Status Date / Time No Known Allergies Allergy Verified 11/04/18 08:58 Medications: Current Medications Albuterol/Ipratropium (Duoneb) 3 ml NEB [id number] PRN PRN Reason: SOB &/or Wheezing Last Admin: 11/16/18 07:08 Dose: 3 ml Amlodipine Besylate (Norvasc) 5 mg PO DAILY [facility] Last Admin: 11/16/18 08:17 Dose: 5 mg Apixaban (Eliquis) 5 mg PO Q2DAYS [facility] Last Admin: 11/16/18 08:17 Dose: 5 mg Aspirin (Ecotrin) 81 mg PO DAILY [facility] Last Admin: 11/16/18 08:16 Dose: 81 mg Bisacodyl (Dulcolax) 10 mg PO DAILYPRN PRN PRN Reason: Constipation Famotidine (Pepcid) 20 mg PO BID [facility] Last Admin: 11/16/18 08:17 Dose: 20 mg Furosemide (Lasix) 20 mg PO DAILY PRN PRN Reason: Edema Levofloxacin 750 mg/ Device 150 mls @ 100 mls/hr IVPB 0600 [facility] Last Admin: 11/16/18 05:32 Dose: 150 mls Methylprednisolone Sodium Succinate (Solu-Medrol) 40 mg IVP Q6HR [facility] Last Admin: 11/16/18 05:32 Dose: 40 mg Nicotine (Nicoderm Patch) 21 mg TOP 1700 [facility] Last Admin: 11/15/18 17:28 Dose: 21 mg Rosuvastatin Calcium (Crestor) 10 mg PO QPM [facility] Last Admin: 11/15/18 20:31 Dose: 10 mg Senna/Docusate Sodium (Senokot S) 2 tab PO BID PRN PRN Reason: Constipation Sodium Chloride (Flush - Normal Saline) 10 ml IVF Q12HR [facility] Last Admin: 11/16/18 08:17 Dose: 10 ml Sodium Chloride (Flush - Normal Saline) 10 ml IVF PRN PRN PRN Reason: Saline Flush Last Admin: 11/16/18 05:32 Dose: 10 ml Tamsulosin HCl (Flomax) 0.4 mg PO DAILY FREDY Last Admin: 11/16/18 08:16 Dose: 0.4 mg Tramadol HCl (Ultram) 50 mg PO Q6H PRN PRN Reason: Pain
[2018-11-16] MEDS: Nicotine 21 MG PATCH TOP SCH (17:50)
[2018-11-16] MEDS: Rosuvastatin 10 MG TAB PO SCH (19:31)
[2018-11-17 08:45] LABS: #Basophils 0.1 thou/uL (0.0-0.2); #Lymphocytes 0.9 thou/uL (1.20-3.40); #Monocytes 1.1 thou/uL (0.11-0.59); #Neutrophils 6.3 thou/uL (1.40-6.50); %Basophils 0.7 % (0.0-1.0); %Lymphocytes 10.5 % (21.0-51.0); %Monocytes 13.5 % (0.0-10.0); %Neutrophils 75.2 % (42.0-75.0); Hemoglobin 12.6 g/dL (14.0-18.0); Mean Corpuscular HGB CONC 31.7 g/dL (32.0-36.0); Mean Corpuscular Hemoglobin 29.9 pg (27.0-31.0); Mean Corpuscular Volume 94.3 fL (78.0-98.0); Mean Platelet Volume 7.4 fL (7.4-10.4); Platelet Count 235 thou/uL (130-400); RBC Distribution Width 15.1 % (11.5-14.5); Red Blood Cell (RBC) Count 4.22 mill/uL (4.70-6.10); White Blood Cell (WBC) Count 8.3 thou/uL (4.8-10.8)
[2018-11-17] MEDS: Tamsulosin HCl 0.4 MG CAP PO SCH (08:50)
[2018-11-17] MEDS: Aspirin 81 mg Enteric Coated Tablet PO SCH (08:50)
[2018-11-17] MEDS: Famotidine 20 MG TAB PO SCH ×2 (08:50→20:03)
[2018-11-17] MEDS: Amlodipine 5 MG TAB PO SCH (08:50)
[2018-11-17] MEDS: predniSONE 5 MG TAB PO SCH (08:51)
[2018-11-17 09:01] LABS: ALT (SGPT) 98 U/L (8-55); AST (SGOT) 74 U/L (5-34); Albumin 3.6 g/dL (3.4-4.8); Alkaline Phosphatase 119 U/L (40-150); Anion Gap 12 mmol/L (10-20); BUN (Urea Nitrogen) 21 mg/dL (8.4-25.7); Bilirubin, Total 0.7 mg/dL (0.2-1.2); Calc. Creatinine Clearance 85 mL/min (70-130); Calcium 9.5 mg/dL (7.8-10.44); Carbon Dioxide 33 mmol/L (23-31); Chloride 91 mmol/L (98-107); Estimated GFR-MDRD 90; Globulin 3.6 g/dL (2.4-3.5); Glucose 98 mg/dL (83-110); Potassium 4.5 mmol/L (3.5-5.1); Protein, Total 7.2 g/dL (5.8-8.1); Sodium 131 mmol/L (136-145)
--- NOTE | 2018-11-17 10:09 | EKG ---
Test Reason : SOB Blood Pressure : / mmHG Vent. Rate : 063 BPM Atrial Rate : 028 BPM P-R Int : 000 ms QRS Dur : 086 ms QT Int : 430 ms P-R-T Axes : 000 047 042 degrees QTc Int : 440 ms Atrial fibrillation Low voltage QRS Abnormal ECG Confirmed by BURAK HOWELL MD ([id number]), multimedia editor NITIN SAM ([id number]) on 11/17/2018 10:08:46 AM Referred By: Confirmed By:BURAK HOWELL MD
[2018-11-17] MEDS ORDERED: Furosemide 40 MG/4 ML VIAL SLOW IVP SCH (12:15)
--- NOTE | 2018-11-17 12:16 | PDOC.HOSPP ---
- Subjective Encounter Date: 11/17/18 Encounter Time: 11:00 Subjective: no sob, feels better amb with PT today - Objective Vital Signs & Weight: Vital Signs (12 hours) Temp Pulse Resp BP BP Pulse Ox 11/17/18 08:50 89 166/95 H 11/17/18 08:42 84 18 93 L 11/17/18 08:00 98.1 F 89 20 166/95 H 87 L Weight Weight 209 lb 8 oz Most Recent Monitor Data NIBP 128/111 NIBP BP-Mean 116 SpO2 91 I&O: 11/16/18 11/17/18 11/18/18 06:59 06:59 06:59 Intake Total 400 300 Output Total 1025 500 Balance -625 -200 Result Diagrams: 11/17/18 08:37 11/17/18 08:37 ROS - Medication Medications: Active Medications Generic Name Dose Route Start Last Admin Trade Name Freq PRN Reason Stop Dose Admin Albuterol/Ipratropium 3 ml 11/12/18 04:17 11/17/18 08:42 Duoneb NEB 3 ml [id number] PRN Administration SOB &/or Wheezing Amlodipine Besylate 5 mg 11/12/18 09:00 11/17/18 08:50 Norvasc PO 5 mg DAILY FREDY Administration Apixaban 5 mg 11/12/18 09:00 11/16/18 08:17 Eliquis PO 5 mg Q2DAYS FREDY Administration Aspirin 81 mg 11/12/18 09:00 11/17/18 08:50 Ecotrin PO 81 mg DAILY FREDY Administration Famotidine 20 mg 11/12/18 09:00 11/17/18 08:50 Pepcid PO 20 mg BID FREDY Administration Levofloxacin 500 mg 11/17/18 06:00 11/17/18 05:17 Levaquin PO 11/18/18 06:01 500 mg 0600 FREDY Administration Nicotine 21 mg 11/13/18 17:00 11/16/18 17:50 Nicoderm Patch TOP Not Given 1700 FREDY Prednisone 5 mg 11/17/18 08:00 11/17/18 08:51 Prednisone PO 11/18/18 08:01 5 mg QAM-WM FREDY Administration Rosuvastatin Calcium 10 mg 11/12/18 21:00 11/16/18 19:31 Crestor PO 10 mg QPM FREDY Administration Sodium Chloride 10 ml 11/16/18 09:00 11/16/18 19:31 Flush - Normal Saline IVF 10 ml Q12HR FREDY Administration Sodium Chloride 10 ml 11/16/18 02:26 11/16/18 05:32 Flush - Normal Saline IVF 10 ml PRN PRN Administration Saline Flush Tamsulosin HCl 0.4 mg 11/12/18 09:00 11/17/18 08:50 Flomax PO 0.4 mg DAILY FREDY Administration - Exam NAD, awake alert Eye: PERRL, anicteric sclera ENT: no oropharyngeal lesions, moist mucosa Neck: supple, no JVD Heart: RRR, no murmur Respiratory: no wheezes, no rales Gastrointestinal: soft, non-tender, normal bowel sounds Gastrointestinal - other findings: has flank edema Extremities: no clubbing, no edema Neurological: CN's grossly intact, no focal deficits Hosp A/P (1) CHF (congestive heart failure) Code(s): I50.9 - HEART FAILURE, UNSPECIFIED Status: Acute Qualifiers: Heart failure chronicity: acute on chronic (2) Afib Code(s): I48.91 - UNSPECIFIED ATRIAL FIBRILLATION Status: Chronic Qualifiers: Atrial fibrillation type: chronic Qualified Code(s): I48.2 - Chronic atrial fibrillation (3) CAD (coronary artery disease) Code(s): I25.10 - ATHSCL HEART DISEASE OF [place] CORONARY ARTERY W/O ANG PCTRS Status: Chronic Qualifiers: Coronary Disease-Associated Artery/Lesion type: [place] artery [place] vs. 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
[2018-11-17] MEDS: Nicotine 21 MG PATCH TOP SCH (17:20)
[2018-11-17] MEDS: Rosuvastatin 10 MG TAB PO SCH (20:06)
[2018-11-17] MEDS: Ondansetron PF 4 MG/2 ML Vial IVP PRN (23:08)
--- NOTE | 2018-11-18 00:35 | RAD ---
RADIOGRAPH CHEST 1 VIEW: DATE: 11/17/2018 TIME: 11:36 PM HISTORY: 88-year-old male with dyspnea COMPARISON: 11/11/2018 FINDINGS: The moderate size left pleural effusion appears slightly larger now, perhaps due to positional differ ences. Underlying dense opacification of left lower lobe and lingula remains. New finding of haziness at left midlung zone and right lower lung zone, perhaps representing pulmonary edema. Magnif ication of the cardiac shadow. No pneumothorax. IMPRESSION: 1. Moderate size left pleural effusion. 2. Underlying consolidation of left lower lobe. This could be atelectasis or combination of atelectas is and pneumonia. 3. Interval development of questionable pulmonary edema versus new infiltrates, at right lower lung z one and left mid lung zone.
--- NOTE | 2018-11-18 01:34 | PDOC.EVN ---
Event Note - Event Note Event Note: Patient had a brief dip in O2 sat into the 70s but quickly recovered. No respiratory distress and upon my exam, resting comfortably. Repeat CXR shows pulmonary congestion, and patient has been started on Lasix with good urinary output. Left pleural effusion remains with underlying atelectasis vs PNA per read; patient has no fever, white count at this time. Defer to day team for further mgmt.
[2018-11-18 04:11] LABS: #Lymphocytes 1.1 thou/uL (1.20-3.40); #Monocytes 0.9 thou/uL (0.11-0.59); #Neutrophils 5.3 thou/uL (1.40-6.50); %Basophils 0.2 % (0.0-1.0); %Eosinophils 0.3 % (0.0-10.0); %Monocytes 12.7 % (0.0-10.0); %Neutrophils 71.8 % (42.0-75.0); Hemoglobin 13.2 g/dL (14.0-18.0); Mean Corpuscular HGB CONC 32.3 g/dL (32.0-36.0); Mean Corpuscular Hemoglobin 30.6 pg (27.0-31.0); Mean Corpuscular Volume 94.7 fL (78.0-98.0); Mean Platelet Volume 7.2 fL (7.4-10.4); Platelet Count 224 thou/uL (130-400); Red Blood Cell (RBC) Count 4.32 mill/uL (4.70-6.10); White Blood Cell (WBC) Count 7.4 thou/uL (4.8-10.8)
[2018-11-18] MEDS: Aspirin 81 mg Enteric Coated Tablet PO SCH (08:47)
[2018-11-18] MEDS: Amlodipine 5 MG TAB PO SCH (08:47)
[2018-11-18] MEDS: Tamsulosin HCl 0.4 MG CAP PO SCH (08:47)
[2018-11-18] MEDS: Famotidine 20 MG TAB PO SCH ×2 (08:48→21:05)
[2018-11-18] MEDS: Apixaban 5 MG TAB PO SCH (08:53)
[2018-11-18] MEDS: predniSONE 5 MG TAB PO SCH (08:55)
[2018-11-18] MEDS ORDERED: Furosemide 40 MG/4 ML VIAL SLOW IVP SCH (09:00)
[2018-11-18 09:35] LABS: Anion Gap 11 mmol/L (10-20); BUN (Urea Nitrogen) 20 mg/dL (8.4-25.7); Calc. Creatinine Clearance 82 mL/min (70-130); Calcium 8.9 mg/dL (7.8-10.44); Carbon Dioxide 36 mmol/L (23-31); Chloride 86 mmol/L (98-107); Estimated GFR-MDRD 90; Glucose 94 mg/dL (83-110); Potassium 4.4 mmol/L (3.5-5.1); Sodium 129 mmol/L (136-145)
--- NOTE | 2018-11-18 11:54 | PDOC.HOSPP ---
- Subjective Encounter Date: 11/18/18 Encounter Time: 11:30 Subjective: no sob or chest pain has ambulated with PT yesterday ate his breakfast - Objective Vital Signs & Weight: Vital Signs (12 hours) Temp Pulse Resp BP BP Pulse Ox 11/18/18 09:00 93 L 11/18/18 08:58 74 24 H 11/18/18 08:47 86 138/71 11/18/18 08:00 98.2 F 86 20 138/71 93 L 11/18/18 01:25 98.0 F 99 20 148/76 H 92 L 11/18/18 00:00 92 L Weight Weight 203 lb 9 oz Most Recent Monitor Data NIBP 128/111 NIBP BP-Mean 116 SpO2 91 I&O: 11/17/18 11/18/18 11/19/18 06:59 06:59 06:59 Intake Total 300 920 Output Total 500 2900 Balance -200 -1979 Result Diagrams: 11/18/18 04:02 11/18/18 08:45 ROS - Medication Medications: Active Medications Generic Name Dose Route Start Last Admin Trade Name Freq PRN Reason Stop Dose Admin Albuterol/Ipratropium 3 ml 11/12/18 04:17 11/18/18 08:58 Duoneb NEB 3 ml [id number] PRN Administration SOB &/or Wheezing Amlodipine Besylate 5 mg 11/12/18 09:00 11/18/18 08:47 Norvasc PO 5 mg DAILY FREDY Administration Apixaban 5 mg 11/12/18 09:00 11/18/18 08:53 Eliquis PO 5 mg Q2DAYS FREDY Administration Aspirin 81 mg 11/12/18 09:00 11/18/18 08:47 Ecotrin PO 81 mg DAILY FREDY Administration Famotidine 20 mg 11/12/18 09:00 11/18/18 08:48 Pepcid PO 20 mg BID FREDY Administration Nicotine 21 mg 11/13/18 17:00 11/17/18 17:20 Nicoderm Patch TOP 21 mg 1700 FREDY Administration Ondansetron HCl 4 mg 11/17/18 23:00 11/17/18 23:08 Zofran IVP 4 mg Q6H PRN Administration Nausea/Vomiting Rosuvastatin Calcium 10 mg 11/12/18 21:00 11/17/18 20:06 Crestor PO 10 mg QPM FREDY Administration Sodium Chloride 10 ml 11/16/18 09:00 11/18/18 08:48 Flush - Normal Saline IVF 10 ml Q12HR FREDY Administration Sodium Chloride 10 ml 11/16/18 02:26 11/17/18 23:09 Flush - Normal Saline IVF 10 ml PRN PRN Administration Saline Flush Tamsulosin HCl 0.4 mg 11/12/18 09:00 11/18/18 08:47 Flomax PO 0.4 mg DAILY FREYD Administration - Exam NAD, awake alert Eye: PERRL, anicteric sclera ENT: no oropharyngeal lesions, dry oral mucosa Neck: supple, no JVD Heart: RRR, no murmur Respiratory: no wheezes, no rales Gastrointestinal: soft, non-distended, normal bowel sounds Extremities: no clubbing, no edema Skin - other findings: has flank edema but is receding slowly now Neurological: CN's grossly intact, no focal deficits Psychiatric: normal affect, A&O x 3 Hosp A/P (1) CHF (congestive heart failure) Code(s): I50.9 - HEART FAILURE, UNSPECIFIED Status: Acute Qualifiers: Heart failure chronicity: acute on chronic (2) Afib Code(s): I48.91 - UNSPECIFIED ATRIAL FIBRILLATION Status: Chronic Qualifiers: Atrial fibrillation type: chronic Qualified Code(s): I48.2 - Chronic atrial fibrillation (3) CAD (coronary artery disease) Code(s): I25.10 - ATHSCL HEART DISEASE OF [place] CORONARY ARTERY W/O ANG PCTRS Status: Chronic Qualifiers: Coronary Disease-Associated Artery/Lesion type: [place] artery [place] vs. 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
[2018-11-18] MEDS: Furosemide 40 MG/4 ML VIAL SLOW IVP SCH (14:17)
[2018-11-18] MEDS: Rosuvastatin 10 MG TAB PO SCH (21:05)
[2018-11-18] MEDS: Nicotine 21 MG PATCH TOP SCH (21:09)
[2018-11-19 06:16] LABS: BUN (Urea Nitrogen) 23 mg/dL (8.4-25.7); Calc. Creatinine Clearance 72 mL/min (70-130); Calcium 8.9 mg/dL (7.8-10.44); Estimated GFR-MDRD 79; Glucose 91 mg/dL (83-110)
[2018-11-19 06:25] LABS: Anion Gap 15 mmol/L (10-20); Carbon Dioxide 35 mmol/L (23-31); Chloride 81 mmol/L (98-107); Potassium 4.3 mmol/L (3.5-5.1); Sodium 127 mmol/L (136-145)
[2018-11-19] MEDS: Furosemide 40 MG/4 ML VIAL SLOW IVP SCH ×2 (06:38→13:26)
[2018-11-19] MEDS: Amlodipine 5 MG TAB PO SCH (09:17)
[2018-11-19] MEDS: Famotidine 20 MG TAB PO SCH ×2 (09:17→21:44)
[2018-11-19] MEDS: Tamsulosin HCl 0.4 MG CAP PO SCH (09:17)
[2018-11-19] MEDS: Aspirin 81 mg Enteric Coated Tablet PO SCH (09:18)
--- NOTE | 2018-11-19 16:16 | PDOC.HOSPP ---
- Subjective Encounter Date: 11/19/18 Encounter Time: 15:40 Subjective: no sob or abd pain - Objective Vital Signs & Weight: Vital Signs (12 hours) Temp Pulse Resp BP Pulse Ox 11/19/18 09:55 92 L 11/19/18 09:17 90 11/19/18 08:00 92 L 11/19/18 07:38 97.8 F 90 20 131/66 92 L Weight Weight 201 lb 3 oz Most Recent Monitor Data NIBP 128/111 NIBP BP-Mean 116 SpO2 91 I&O: 11/18/18 11/19/18 11/20/18 06:59 06:59 06:59 Intake Total 920 340 Output Total 2900 1250 7550 Balance -1979 -0829 -1573 Result Diagrams: 11/18/18 04:02 11/19/18 05:30 ROS - Medication Medications: Active Medications Generic Name Dose Route Start Last Admin Trade Name Freq PRN Reason Stop Dose Admin Albuterol/Ipratropium 3 ml 11/12/18 04:17 11/18/18 08:58 Duoneb NEB 3 ml [id number] PRN Administration SOB &/or Wheezing Amlodipine Besylate 5 mg 11/12/18 09:00 11/19/18 09:17 Norvasc PO 5 mg DAILY FREDY Administration Apixaban 5 mg 11/12/18 09:00 11/18/18 08:53 Eliquis PO 5 mg Q2DAYS FREDY Administration Aspirin 81 mg 11/12/18 09:00 11/19/18 09:18 Ecotrin PO 81 mg DAILY FREDY Administration Famotidine 20 mg 11/12/18 09:00 11/19/18 09:17 Pepcid PO 20 mg BID FREDY Administration Furosemide 40 mg 11/18/18 14:00 11/19/18 13:26 Lasix SLOW IVP 40 mg 0600,1400 FREDY Administration Nicotine 21 mg 11/13/18 17:00 11/18/18 21:09 Nicoderm Patch TOP 21 mg 1700 FREDY Administration Ondansetron HCl 4 mg 11/17/18 23:00 11/17/18 23:08 Zofran IVP 4 mg Q6H PRN Administration Nausea/Vomiting Rosuvastatin Calcium 10 mg 11/12/18 21:00 11/18/18 21:05 Crestor PO 10 mg QPM FREDY Administration Sodium Chloride 10 ml 11/16/18 09:00 11/19/18 06:38 Flush - Normal Saline IVF Not Given Q12HR FREDY Sodium Chloride 10 ml 11/16/18 02:26 11/19/18 13:26 Flush - Normal Saline IVF 10 ml PRN PRN Administration Saline Flush Tamsulosin HCl 0.4 mg 11/12/18 09:00 11/19/18 09:17 Flomax PO 0.4 mg DAILY FREDY Administration - Exam NAD, ill appearing Eye: PERRL, anicteric sclera ENT: no oropharyngeal lesions, dry oral mucosa Neck: supple, no JVD Heart: RRR, no murmur Respiratory: no wheezes, no rales Gastrointestinal: soft, non-distended, normal bowel sounds Gastrointestinal - other findings: abd wall edema in the post aspects and upper thighs Extremities: no clubbing, 1+ LE edema Neurological: CN's grossly intact, no focal deficits Psychiatric: normal affect, A&O x 3 Hosp A/P (1) CHF (congestive heart failure) Code(s): I50.9 - HEART FAILURE, UNSPECIFIED Status: Acute Qualifiers: Heart failure chronicity: acute on chronic (2) Afib Code(s): I48.91 - UNSPECIFIED ATRIAL FIBRILLATION Status: Chronic Qualifiers: Atrial fibrillation type: chronic Qualified Code(s): I48.2 - Chronic atrial fibrillation (3) CAD (coronary artery disease) Code(s): I25.10 - ATHSCL HEART DISEASE OF [place] CORONARY ARTERY W/O ANG PCTRS Status: Chronic Qualifiers: Coronary Disease-Associated Artery/Lesion type: [place] artery [place] vs. 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 Status: Chronic (6) Chronic atrial fibrillation Code(s): I48.2 - CHRONIC ATRIAL FIBRILLATION Status: Chronic (7) HTN (hypertension) Code(s): I10 - ESSENTIAL (PRIMARY) HYPERTENSION Status: Chronic Qualifiers: Hypertension type: essential hypertension Qualified Code(s): I10 - Essential (primary) hypertension (8) Physical deconditioning Code(s): R53.81 - OTHER MALAISE Status: Acute - Plan continue iv lasix due to anasarca and edema in the post aspects of abd and upper thighs due to inactivity hemostable dc steroids continue norvasc, eliquis, asp, crestor, nebs his insurance has denied rehab, cm is looking for snf options needs some more diuresis and physical activity.
[2018-11-19] MEDS: Nicotine 21 MG PATCH TOP SCH (18:16)
[2018-11-19] MEDS: Rosuvastatin 10 MG TAB PO SCH (21:44)
[2018-11-20] MEDS: Furosemide 40 MG/4 ML VIAL SLOW IVP SCH ×2 (06:27→14:45)
[2018-11-20] MEDS: Famotidine 20 MG TAB PO SCH ×2 (09:37→20:48)
[2018-11-20] MEDS: Amlodipine 5 MG TAB PO SCH (09:37)
[2018-11-20] MEDS: Tamsulosin HCl 0.4 MG CAP PO SCH (09:37)
[2018-11-20] MEDS: Apixaban 5 MG TAB PO SCH (09:37)
[2018-11-20] MEDS: Aspirin 81 mg Enteric Coated Tablet PO SCH (09:37)
--- NOTE | 2018-11-20 12:58 | PDOC.HOSPP ---
- Subjective Encounter Date: 11/20/18 Encounter Time: 12:56 Subjective: pleasantly demented - Objective Vital Signs & Weight: Vital Signs (12 hours) Temp Pulse Resp BP Pulse Ox 11/20/18 09:37 85 11/20/18 07:41 97.6 F 85 18 146/78 H 98 Weight Weight 196 lb 9 oz Most Recent Monitor Data NIBP 128/111 NIBP BP-Mean 116 SpO2 91 I&O: 11/19/18 11/20/18 11/21/18 06:59 06:59 06:59 Intake Total 340 Output Total 3300 2975 Balance -2960 -2975 Result Diagrams: 11/18/18 04:02 11/19/18 05:30 ROS - Medication Medications: Active Medications Generic Name Dose Route Start Last Admin Trade Name Freq PRN Reason Stop Dose Admin Albuterol/Ipratropium 3 ml 11/12/18 04:17 11/18/18 08:58 Duoneb NEB 3 ml [id number] PRN Administration SOB &/or Wheezing Amlodipine Besylate 5 mg 11/12/18 09:00 11/20/18 09:37 Norvasc PO 5 mg DAILY FREDY Administration Apixaban 5 mg 11/12/18 09:00 11/20/18 09:37 Eliquis PO 5 mg Q2DAYS FREDY Administration Aspirin 81 mg 11/12/18 09:00 11/20/18 09:37 Ecotrin PO 81 mg DAILY FREDY Administration Famotidine 20 mg 11/12/18 09:00 11/20/18 09:37 Pepcid PO 20 mg BID FREDY Administration Furosemide 40 mg 11/18/18 14:00 11/20/18 06:27 Lasix SLOW IVP 40 mg 0600,1400 FREDY Administration Nicotine 21 mg 11/13/18 17:00 11/19/18 18:16 Nicoderm Patch TOP 21 mg 1700 FREDY Administration Ondansetron HCl 4 mg 11/17/18 23:00 11/17/18 23:08 Zofran IVP 4 mg Q6H PRN Administration Nausea/Vomiting Rosuvastatin Calcium 10 mg 11/12/18 21:00 11/19/18 21:44 Crestor PO 10 mg QPM FREDY Administration Sodium Chloride 10 ml 11/16/18 09:00 11/20/18 09:37 Flush - Normal Saline IVF 10 ml Q12HR FREDY Administration Sodium Chloride 10 ml 11/16/18 02:26 11/20/18 06:28 Flush - Normal Saline IVF 10 ml PRN PRN Administration Saline Flush Tamsulosin HCl 0.4 mg 11/12/18 09:00 11/20/18 09:37 Flomax PO 0.4 mg DAILY FREDY Administration - Exam Neck: no JVD Heart: no murmur, irregular Respiratory: CTAB Gastrointestinal: soft, normal bowel sounds Extremities: no edema Hosp A/P (1) COPD exacerbation Code(s): J44.1 - CHRONIC OBSTRUCTIVE PULMONARY DISEASE W (ACUTE) EXACERBATION Status: Acute (2) Acute on chronic systolic (congestive) heart failure Code(s): I50.23 - ACUTE ON CHRONIC SYSTOLIC (CONGESTIVE) HEART FAILURE Status : Acute (3) CAD (coronary artery disease) Code(s): I25.10 - ATHSCL HEART DISEASE OF [place] CORONARY ARTERY W/O ANG PCTRS Status: Chronic Qualifiers: Coronary Disease-Associated Artery/Lesion type: [place] artery [place] vs. transplanted heart: [place] heart Associated angina: without angina Qualified Code(s): I25.10 - Atherosclerotic heart disease of [place] coronary artery without angina pectoris (4) Chronic anticoagulation Code(s): Z79.01 - USP (CURRENT) USE OF ANTICOAGULANTS Status: Chronic (5) Chronic atrial fibrillation Code(s): I48.2 - CHRONIC ATRIAL FIBRILLATION Status: Chronic (6) HTN (hypertension) Code(s): I10 - ESSENTIAL (PRIMARY) HYPERTENSION Status: Chronic Qualifiers: Hypertension type: essential hypertension Qualified Code(s): I10 - Essential (primary) hypertension - Plan cont diuresis, rpt cxr tomorrow cont nebs cont amlodipine, ASA,
[2018-11-20] MEDS: Nicotine 21 MG PATCH TOP SCH (16:45)
[2018-11-20] MEDS: Rosuvastatin 10 MG TAB PO SCH (20:48)
[2018-11-21 03:19] LABS: #Eosinphils 0.1 thou/uL (0.0-0.7); #Lymphocytes 0.9 thou/uL (1.20-3.40); #Monocytes 0.9 thou/uL (0.11-0.59); #Neutrophils 5.9 thou/uL (1.40-6.50); %Basophils 0.3 % (0.0-1.0); %Eosinophils 1.7 % (0.0-10.0); %Lymphocytes 11.5 % (21.0-51.0); %Monocytes 11.5 % (0.0-10.0); Hemoglobin 13.9 g/dL (14.0-18.0); Mean Corpuscular HGB CONC 32.2 g/dL (32.0-36.0); Mean Corpuscular Hemoglobin 29.4 pg (27.0-31.0); Mean Corpuscular Volume 91.4 fL (78.0-98.0); Mean Platelet Volume 7.6 fL (7.4-10.4); Platelet Count 206 thou/uL (130-400); RBC Distribution Width 14.6 % (11.5-14.5); Red Blood Cell (RBC) Count 4.74 mill/uL (4.70-6.10); White Blood Cell (WBC) Count 7.9 thou/uL (4.8-10.8)
[2018-11-21 03:34] LABS: Lactic Acid 0.7 mmol/L (0.5-2.2)
[2018-11-21 03:40] LABS: ALT (SGPT) 64 U/L (8-55); AST (SGOT) 42 U/L (5-34); Albumin 3.3 g/dL (3.4-4.8); Alkaline Phosphatase 128 U/L (40-150); Anion Gap 13 mmol/L (10-20); BUN (Urea Nitrogen) 18 mg/dL (8.4-25.7); Bilirubin, Total 1.2 mg/dL (0.2-1.2); Calc. Creatinine Clearance 84 mL/min (70-130); Calcium 8.8 mg/dL (7.8-10.44); Carbon Dioxide 35 mmol/L (23-31); Chloride 79 mmol/L (98-107); Estimated GFR-MDRD Greater than 90; Globulin 3.3 g/dL (2.4-3.5); Glucose 99 mg/dL (83-110); Magnesium 1.7 mg/dL (1.6-2.6); Potassium 3.7 mmol/L (3.5-5.1); Protein, Total 6.6 g/dL (5.8-8.1); Sodium 123 mmol/L (136-145)
[2018-11-21] MEDS: Furosemide 40 MG/4 ML VIAL SLOW IVP SCH (06:50)
--- NOTE | 2018-11-21 08:45 | RAD ---
PORTABLE AP CHEST X-RAY: HISTORY: CHF. COMPARISON: 11/17/2018 FINDINGS: There is a moderate-sized left pleural effusion, but the pleural effusion appears slightly improved f rom prior exam. Atelectasis is present in the right mid lung zone. The right lung is otherwise johanna r. The cardiac silhouette is magnified by projection but stable in size. Vascular calcifications ar e seen in the thoracic aorta. No other interval change. IMPRESSION: 1. Moderate sized left pleural effusion, but the pleural effusion does appear slightly improved when compared to prior examination. Underlying infectious process, left lung base, cannot be entirely ex cluded. 2. Atelectasis, right mid lung zone. POS: C
[2018-11-21] MEDS: Tamsulosin HCl 0.4 MG CAP PO SCH (10:01)
[2018-11-21] MEDS: Amlodipine 5 MG TAB PO SCH (10:01)
[2018-11-21] MEDS: Aspirin 81 mg Enteric Coated Tablet PO SCH (10:03)
[2018-11-21] MEDS: Famotidine 20 MG TAB PO SCH ×2 (10:03→21:28)
[2018-11-21] MEDS: Ondansetron PF 4 MG/2 ML Vial IVP PRN (10:04)
--- NOTE | 2018-11-21 10:18 | PDOC.HOSPP ---
- Subjective Encounter Date: 11/21/18 Encounter Time: 10:17 Subjective: still sob, feeling poorly - Objective Vital Signs & Weight: Vital Signs (12 hours) Temp Pulse Resp BP BP Pulse Ox 11/21/18 10:01 74 140/64 11/21/18 07:55 97.8 F 74 18 140/64 94 L Weight Weight 188 lb 8 oz Most Recent Monitor Data NIBP 128/111 NIBP BP-Mean 116 SpO2 91 I&O: 11/20/18 11/21/18 11/22/18 06:59 06:59 06:59 Intake Total 900 Output Total 9135 2052 Balance -5704 -1421 Result Diagrams: 11/21/18 03:11 11/21/18 03:11 ROS - Medication Medications: Active Medications Generic Name Dose Route Start Last Admin Trade Name Freq PRN Reason Stop Dose Admin Albuterol/Ipratropium 3 ml 11/12/18 04:17 11/18/18 08:58 Duoneb NEB 3 ml [id number] PRN Administration SOB &/or Wheezing Amlodipine Besylate 5 mg 11/12/18 09:00 11/21/18 10:01 Norvasc PO 5 mg DAILY FREDY Administration Apixaban 5 mg 11/12/18 09:00 11/20/18 09:37 Eliquis PO 5 mg Q2DAYS FREDY Administration Aspirin 81 mg 11/12/18 09:00 11/21/18 10:03 Ecotrin PO Not Given DAILY FREDY Famotidine 20 mg 11/12/18 09:00 11/21/18 10:03 Pepcid PO 20 mg BID FREDY Administration Nicotine 21 mg 11/13/18 17:00 11/20/18 16:45 Nicoderm Patch TOP 21 mg 1700 FREDY Administration Ondansetron HCl 4 mg 11/17/18 23:00 11/21/18 10:04 Zofran IVP 4 mg Q6H PRN Administration Nausea/Vomiting Rosuvastatin Calcium 10 mg 11/12/18 21:00 11/20/18 20:48 Crestor PO 10 mg QPM FREDY Administration Sodium Chloride 10 ml 11/16/18 09:00 11/21/18 10:04 Flush - Normal Saline IVF 10 ml Q12HR FREDY Administration Sodium Chloride 10 ml 11/16/18 02:26 11/21/18 06:51 Flush - Normal Saline IVF 10 ml PRN PRN Administration Saline Flush Tamsulosin HCl 0.4 mg 11/12/18 09:00 11/21/18 10:01 Flomax PO 0.4 mg DAILY FREDY Administration - Exam awake alert Neck: no JVD Heart: irregular Respiratory - other findings: dull L pot lung field, scattered rhonchi Gastrointestinal: soft, normal bowel sounds Extremities: no edema Hosp A/P (1) Pleural effusion Code(s): J90 - PLEURAL EFFUSION, NOT ELSEWHERE CLASSIFIED Status: Acute (2) COPD exacerbation Code(s): J44.1 - CHRONIC OBSTRUCTIVE PULMONARY DISEASE W (ACUTE) EXACERBATION Status: Acute (3) Acute on chronic systolic (congestive) heart failure Code(s): I50.23 - ACUTE ON CHRONIC SYSTOLIC (CONGESTIVE) HEART FAILURE Status : Acute (4) CAD (coronary artery disease) Code(s): I25.10 - ATHSCL HEART DISEASE OF [place] CORONARY ARTERY W/O ANG PCTRS Status: Chronic Qualifiers: Coronary Disease-Associated Artery/Lesion type: [place] artery [place] vs. 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
--- NOTE | 2018-11-21 11:15 | CON ---
DATE OF CONSULTATION: HISTORY OF PRESENT ILLNESS: He is an 88-year-old gentleman who has been in the hospital here now for several days, came to the hospital on the 15 with left arm pain and elbow pain. Apparently, it is possible he might had some fall 2 weeks prior to that. His x-ray shows a persistent left pleural effusion and questionable fractured ribs. Therefore consulted regarding a thoracentesis. Smokes 4 cigarettes a day, long-standing duration, is severely decreased. Can barely walk even 100 feet without getting markedly short of breath. Denies any fevers, chills, sweats or hemoptysis. PAST MEDICAL HISTORY: Coronary artery disease, CHF, renal disease, and COPD. PREVIOUS SURGERIES: Cataract. SOCIAL HISTORY: Alcohol, none. Tobacco, as noted. HOME MEDICATIONS: Prior to admission includes tramadol, Lasix 20, Flomax 0.4, Eliquis 5, Norvasc 5, Medrol Dosepak and recent neb treatments. REVIEW OF SYSTEMS: Otherwise negative. PHYSICAL EXAMINATION: VITAL SIGNS: His saturations are 95% on 2 L, respiratory rate 18, temperature 97, blood pressure 140/60, afebrile. CHEST: Decreased breath sounds at left base. Right lung remarkable. There is no wheezing. CARDIAC: Normal S1, S2. No gallops. ABDOMEN: No masses. LABORATORY STUDIES: Sodium is 123, bicarb is 35. White count 7000, H and H 13 and 43, platelet count is normal. X-ray shows left pleural effusion. IMPRESSION: 1. Left pleural effusion, etiology unclear, probably secondary to fluid overload and congestive heart failure. 2. Hyponatremia. 3. hypertension, BPH. Cortisol level being ordered including a thyroid function, probably has underlying chronic obstructive pulmonary disease with his bicarb being 35. Schedule neb treatment ordered, supportive care and thoracentesis. Consultation note, 70 minutes, 50% direct patient care, exclusive of the thoracentesis. Job ID: [id number]
[2018-11-21 11:28] LABS: Magnesium 1.7 mg/dL (1.6-2.6); Phosphorus 2.9 mg/dL (2.3-4.7)
--- NOTE | 2018-11-21 11:36 | RAD ---
Exam: Chest one view HISTORY:Thoracentesis Comparison: 11/21/2018 at 7:03 AM FINDINGS: Cardiac silhouette:Cardiomegaly. Aorta: Atherosclerosis of the aortic knob Pulmonary vessels: Normal Costophrenic angles: Small bilateral pleural effusions. LUNGS: Interval hazy opacification the right lung base. Improved aeration of the left lung base. Pneumothorax: None Osseous abnormalities: None IMPRESSION: 1. Small bilateral pleural effusions. 2. Worsening opacification the right lung base. Improved aeration of the left lung base. 3. No pneumothorax.
--- NOTE | 2018-11-21 11:52 | OP ---
DATE OF PROCEDURE: 11/21/2018 PROCEDURE PERFORMED: Thoracentesis. INDICATION: Pleural effusion and dyspnea. DESCRIPTION OF PROCEDURE: After informed consent, the left posterior thorax was cleaned with chlorhexidine. 1% lidocaine was infiltrated into the right 9th intercostal space and the pleural cavity was entered and 20 mL of pale yellow fluid was removed. Thereafter, using an 8-[place] catheter, an additional 1 L was removed without any difficulty. It was sent for appropriate studies including cytology and culture. The patient tolerated the procedure well. Job ID: [id number]
[2018-11-21 11:59] LABS: BF Color Yellow; Body Fluid Source Thoracentesis Fluid; Clarity Hazy (Clear); Tube # 3
[2018-11-21 12:00] LABS: BF RBC Count - Manual 9 /cumm; BF WBC/Nonhematics Ct. - Manua 68 /cumm
[2018-11-21 12:03] LABS: Fluid, Triglycerides Less than 11 mg/dL (Not Available); Pleural Fluid, Amylase Less than 30 U/L (Not Available); Pleural Fluid, Glucose 107 mg/dL; Pleural Fluid, LDH 55 U/L (Not Available); Pleural Fluid, Protein 1.7 g/dL
[2018-11-21 12:21] LABS: BF Segmented Neutrophils 23 %; Cell Count Non Hematic 51 %; Eosinophils 1 %; Lymphocytes 25 %
[2018-11-21 13:28] VITALS: BMI 31.4
--- NOTE | 2018-11-21 13:57 | PDOC.EVN ---
Event Note - Event Note Event Note: CXR- no pneumothoax post thoracetesis. ABG- compensated resp failure. patiet comfortable- VS stable
--- NOTE | 2018-11-21 15:35 | PDOC.PALPN ---
Palliative Progress Note - Subjective 88 year old male who has been followed by Palliative Care with continued decline. Patient had a throacentesis this afternoon and did not tolerate well. Patient came to hospital and provided MPOA patietn had documented stating his wishes. Mrs Razo is his MPOA. Labored respirations, Difficult to arouse and returns to sleep state, unable to determine orientation beyond self. - Objective Vital Signs: Vital Signs - Most Recent Temp Pulse Resp BP Pulse Ox 97.8 F 67 20 88/55 L 94 L 11/21/18 07:55 11/21/18 13:44 11/21/18 13:44 11/21/18 12:17 11/21/18 13:44 - Physical Exam Constitutional: confusion HEENT: moist MMs, EOMI Deviation from normal: Labored respirations, adventicious lung sounds Cardiovascular: irregular Deviation from normal: mild distention, tympani on percussion Deviation from normal: confused, lethargic, difficult to arouse Deviation from normal: brusing - Assessment (1) Palliative care encounter Code(s): Z51.5 - ENCOUNTER FOR PALLIATIVE CARE Current Visit: Yes Status: Acute (2) Acute on chronic systolic (congestive) heart failure Code(s): I50.23 - ACUTE ON CHRONIC SYSTOLIC (CONGESTIVE) HEART FAILURE Current Visit: Yes Status: Acute (3) COPD exacerbation Code(s): J44.1 - CHRONIC OBSTRUCTIVE PULMONARY DISEASE W (ACUTE) EXACERBATION Current Visit: Yes Status: Acute - Plan Plan: * confirmed patient to be a DNAR, also provided MPOA from home patient had documented in the past. *Phone call to Anita to discuss status of her grandfather and confirm family meeting 11/22 10am *Spoke with Anita and Mrs Razo consideration of Hospice evaluation for GIP as they feel he continues to decline and are not certain going to a facility is best. *Family meeting tomorrow to revisit goals of care for Mr Razo that are inline with chronic disease conditions. *Patient son is driving in and will be present for family meeting as well. Communicated with Dr Wallis and NAVI as well as Mac Garber RN who is caring for the patient today [90] minutes spent on this encounter with >50% of the time in counseling and coordination of care.
[2018-11-21 18:47] LABS: Troponin I 0.067 ng/mL (< 0.028)
[2018-11-21] MEDS: Rosuvastatin 10 MG TAB PO SCH (21:28)
[2018-11-22 00:28] LABS: Troponin I 0.105 ng/mL (< 0.028)
[2018-11-22 03:19] LABS: Bacteria/HPF None Seen HPF (None Seen); Bilirubin Negative (Negative); Blood, Urine 1+ (Negative); Clarity Clear (Clear); Glucose, Urine (Dipstick) Normal (Negative); Leukocyte 25 Leu/uL (Negative); Nitrite Negative (Negative); Protein, Urine (Dipstick) Negative (Neg-Trace); Squamous Epithelial 0-3 HPF (0-3); Transitional Epithelial 0-3 HPF (None Seen); Urobilinogen Normal mg/dL (Less than 2)
[2018-11-22 03:22] LABS: Urine Culture Reflex Yes Yes
[2018-11-22 06:53] LABS: Troponin I 0.087 ng/mL (< 0.028)
[2018-11-22 08:40] LABS: Anion Gap 14 mmol/L (10-20); BUN (Urea Nitrogen) 19 mg/dL (8.4-25.7); Calc. Creatinine Clearance 77 mL/min (70-130); Calcium 8.4 mg/dL (7.8-10.44); Carbon Dioxide 34 mmol/L (23-31); Chloride 78 mmol/L (98-107); Estimated GFR-MDRD Greater than 90; Glucose 90 mg/dL (83-110); Potassium 3.7 mmol/L (3.5-5.1); Sodium 122 mmol/L (136-145)
[2018-11-22] MEDS: Aspirin 81 mg Enteric Coated Tablet PO SCH (08:55)
[2018-11-22] MEDS: Famotidine 20 MG TAB PO SCH ×2 (08:55→20:44)
[2018-11-22] MEDS: Tamsulosin HCl 0.4 MG CAP PO SCH (08:55)
--- NOTE | 2018-11-22 09:04 | PRG ---
DATE OF SERVICE: 11/22/2018 SUBJECTIVE: This morning, he is awake, alert, responsive, sitting on side of the bed. OBJECTIVE: VITAL SIGNS: Temperature 97, pulse 65, respiratory rate 20, sats 92 on 2 L, blood pressure 120/62. CHEST: Decreased breath sounds. No wheezing. CARDIAC: Normal S1 and S2. No gallops. ABDOMEN: No masses. LABORATORY DATA: His pleural effusion was clearly a transudate. Cultures so far negative. Sodium is still , chloride is 78, bicarb is 34, probably from excessive diuretics. IMPRESSION: 1. Hyponatremia secondary to diuretics. 2. Pleural effusion transudate. 3. Morbid obesity. 4. Atrial fibrillation. PLAN: Pulmonary mcmullen, continue supportive care, PT. Eventually placement. Job ID: [id number]
[2018-11-22] MEDS: Amlodipine 5 MG TAB PO SCH (09:09)
[2018-11-22] MEDS: Apixaban 5 MG TAB PO SCH (09:53)
[2018-11-22] MEDS ORDERED: Lorazepam 2 MG/ML VIAL SLOW IVP PRN (10:45)
[2018-11-22] MEDS ORDERED: Scopolamine 1.5 mg/72 hour Patch TD SCH (10:45)
--- NOTE | 2018-11-22 10:59 | PDOC.PALPN ---
Palliative Progress Note - Subjective Resting in bed, family at bedside. Chronically ill appearing, denies complaints. - Objective Vital Signs: Vital Signs - Most Recent Temp Pulse Resp BP Pulse Ox 97.6 F 65 20 120/62 92 L 11/22/18 08:00 11/22/18 09:09 11/22/18 08:00 11/22/18 09:09 11/22/18 08:00 - Physical Exam Constitutional: confusion HEENT: moist MMs, EOMI Deviation from normal: mildly labored respirations with speech. Deviation from normal: Abdominal distention Neurological: moves all 4 limbs Psychiatric: normal mood - Assessment (1) Palliative care encounter Code(s): Z51.5 - ENCOUNTER FOR PALLIATIVE CARE Current Visit: Yes Status: Acute (2) Acute on chronic systolic (congestive) heart failure Code(s): I50.23 - ACUTE ON CHRONIC SYSTOLIC (CONGESTIVE) HEART FAILURE Current Visit: Yes Status: Acute (3) COPD exacerbation Code(s): J44.1 - CHRONIC OBSTRUCTIVE PULMONARY DISEASE W (ACUTE) EXACERBATION Current Visit: Yes Status: Acute - Plan Plan: Family requested meeting to revisit goals of care for patient as he continues to decline. Family is wishing to seek inpatient hospice and just have comfort medications. Son,, daughter in law, granddaughter Anita, and Mrs Razo present for conversation. Discussed at length chronic and acute disease process. Family expressed they do not want Mr Razo to suffer. *Scopolamine patch ordered for management of secretions to promote comfort *Ativan ordered 0.5mg IVP for agitation/restlessness *Will discuss transition to comfort medications with Sound Physician *OOHDNAR to be completed with A Merna registrar Palliative Care *Jane to contact [facility] for evaluation of appropriateness of inpatient hospice. *Reached out to Father Ernst for continued family support. Palliative Care will continue to follow and support patient and family. [120] minutes spent on this encounter with >50% of the time in counseling and coordination of care.
--- NOTE | 2018-11-22 11:32 | PDOC.HOSPP ---
- Subjective Encounter Date: 11/22/18 Encounter Time: 07:00 Subjective: Patient seen and examined. No overnight events - Objective Vital Signs & Weight: Vital Signs (12 hours) Temp Pulse Resp BP BP Pulse Ox 11/22/18 11:10 92 L 11/22/18 09:09 65 120/62 11/22/18 08:00 97.6 F 65 20 120/62 92 L 11/22/18 07:50 56 L 16 Weight Admit Weight 205 lb 0.478 oz Weight 178 lb 8 oz Most Recent Monitor Data NIBP 128/111 NIBP BP-Mean 116 SpO2 91 I&O: 11/21/18 11/22/18 11/23/18 06:59 06:59 06:59 Intake Total 900 Output Total 2775 Balance -1875 Result Diagrams: 11/21/18 03:11 11/22/18 06:20 ROS - Review of Systems Constitutional: reports: weakness, malaise. denies: fever, chills, sweats, other Respiratory: reports: shortness of breath, SOB with excertion. denies: cough, dry, hemoptysis, pleuritic pain, sputum, wheezing, other Cardiovascular: denies: chest pain, palpitations, orthopnea, paroxysmal noc. dyspnea, edema, light headedness, other Gastrointestinal: denies: nausea, vomitting, abdominal pain, diarrhea, constipation, melena, hematochezia, other Genitourinary: denies: dysuria, frequency, incontinence, hematuria, retention, other Musculoskeletal: denies: neck pain, shoulder pain, arm pain, back pain, hand pain, leg pain, foot pain, other - Medication Medications: Active Medications Generic Name Dose Route Start Last Admin Trade Name Freq PRN Reason Stop Dose Admin Albuterol/Ipratropium 3 ml 11/12/18 04:17 11/18/18 08:58 Duoneb NEB 3 ml [id number] PRN Administration SOB &/or Wheezing Albuterol/Ipratropium 3 ml 11/21/18 13:00 11/22/18 07:50 Duoneb NEB 3 ml [id number] FREDY Administration Amlodipine Besylate 5 mg 11/12/18 09:00 11/22/18 09:09 Norvasc PO Not Given DAILY FREDY Apixaban 5 mg 11/12/18 09:00 11/22/18 09:53 Eliquis PO 5 mg Q2DAYS FREDY Administration Aspirin 81 mg 11/12/18 09:00 11/22/18 08:55 Ecotrin PO 81 mg DAILY FREDY Administration Famotidine 20 mg 11/12/18 09:00 11/22/18 08:55 Pepcid PO 20 mg BID FREDY Administration Ondansetron HCl 4 mg 11/17/18 23:00 11/21/18 10:04 Zofran IVP 4 mg Q6H PRN Administration Nausea/Vomiting Rosuvastatin Calcium 10 mg 11/12/18 21:00 11/21/18 21:28 Crestor PO 10 mg QPM FREDY Administration Sodium Chloride 10 ml 11/16/18 09:00 11/22/18 08:56 Flush - Normal Saline IVF 10 ml Q12HR FREDY Administration Sodium Chloride 10 ml 11/16/18 02:26 11/21/18 06:51 Flush - Normal Saline IVF 10 ml PRN PRN Administration Saline Flush Tamsulosin HCl 0.4 mg 11/12/18 09:00 11/22/18 08:55 Flomax PO 0.4 mg DAILY FREDY Administration - Exam NAD, awake alert Eye: PERRL, anicteric sclera ENT: normocephalic atraumatic, no oropharyngeal lesions Neck: supple, symmetric Heart: RRR, no murmur, no gallops Respiratory: CTAB, no wheezes, no rales Gastrointestinal: soft, non-tender, non-distended, normal bowel sounds Extremities: no cyanosis, no clubbing Skin: normal turgor, no lesions Neurological: CN's grossly intact, normal sensation to touch, no focal deficits Musculoskeletal: normal tone, normal strength Psychiatric: normal affect, normal behavior Hosp A/P (1) CHF (congestive heart failure) Code(s): I50.9 - HEART FAILURE, UNSPECIFIED Status: Acute Qualifiers: Heart failure type: combined systolic and diastolic Heart failure chronicity: acute on chronic Qualified Code(s): I50.43 - Acute on chronic combined systolic (congestive) and diastolic (congestive) heart failure (2) CAD (coronary artery disease) Code(s): I25.10 - ATHSCL HEART DISEASE OF [place] CORONARY ARTERY W/O ANG PCTRS Status: Chronic Qualifiers: Coronary Disease-Associated Artery/Lesion type: [place] artery [place] vs. transplanted heart: [place] heart Associated angina: without angina Qualified Code(s): I25.10 - Atherosclerotic heart disease of [place] coronary artery without angina pectoris (3) COPD (chronic obstructive pulmonary disease) Status: Chronic Qualifiers: COPD type: unspecified COPD Qualified Code(s): J44.9 - Chronic obstructive pulmonary disease, unspecified (4) Chronic anticoagulation Code(s): Z79.01 - NURSING HOME (CURRENT) USE OF ANTICOAGULANTS Status: Chronic (5) Chronic atrial fibrillation Code(s): I48.2 - CHRONIC ATRIAL FIBRILLATION Status: Chronic (6) HTN (hypertension) Code(s): I10 - ESSENTIAL (PRIMARY) HYPERTENSION Status: Chronic Qualifiers: Hypertension type: essential hypertension Qualified Code(s): I10 - Essential (primary) hypertension (7) COPD exacerbation Code(s): J44.1 - CHRONIC OBSTRUCTIVE PULMONARY DISEASE W (ACUTE) EXACERBATION Status: Acute (8) Physical deconditioning Code(s): R53.81 - OTHER MALAISE Status: Acute (9) Pleural effusion Code(s): J90 - PLEURAL EFFUSION, NOT ELSEWHERE CLASSIFIED Status: Acute - Plan old records reviewed/req, plan discussed w/ family medication reviewed as above symptomatic treatment hospice evaluation today stable
[2018-11-22] MEDS ORDERED: traMADol HCl 50 MG TAB PO PRN (13:26)
[2018-11-22 19:43] VITALS: TEMP 97.9
[2018-11-22] MEDS: Rosuvastatin 10 MG TAB PO SCH (20:44)
[2018-11-23] MEDS ORDERED: Cepastat Lozenges 1 LOZ PO PRN (08:36)
[2018-11-23] MEDS ORDERED: Sodium Chloride 0.65% Nasal 44 ML BOT EA NARE PRN (08:36)
[2018-11-23] MEDS ORDERED: Loratadine 10 MG TAB PO PRN (08:36)
[2018-11-23] MEDS ORDERED: HYDROcodone/Acetaminophen 5/325 mg Tablet PO PRN (08:36)
[2018-11-23] MEDS ORDERED: Ondansetron ODT 4 MG TAB PO PRN (08:36)
[2018-11-23] MEDS ORDERED: hydrALAZINE 20 MG/ML VIAL SLOW IVP PRN (08:36)
[2018-11-23] MEDS ORDERED: Artificial Tears 18 DROP/0.9 ML EA EYE PRN (08:36)
[2018-11-23] MEDS ORDERED: Zolpidem Tartrate 5 MG TAB PO PRN (08:36)
[2018-11-23] MEDS ORDERED: Diabetic Tussin 200 MG/10 ML UDCUP PO PRN (08:36)
[2018-11-23] MEDS ORDERED: Loperamide HCl 2 MG CAP PO PRN (08:36)
[2018-11-23 08:54] VITALS: BP 107/55
[2018-11-23] MEDS ORDERED: Lisinopril 2.5 MG TAB PO SCH (09:00)
[2018-11-23 09:13] LABS: #Eosinphils 0.3 thou/uL (0.0-0.7); #Lymphocytes 0.6 thou/uL (1.20-3.40); #Monocytes 1.2 thou/uL (0.11-0.59); #Neutrophils 8.1 thou/uL (1.40-6.50); %Basophils 0.2 % (0.0-1.0); %Eosinophils 2.8 % (0.0-10.0); %Lymphocytes 5.9 % (21.0-51.0); %Monocytes 11.4 % (0.0-10.0); %Neutrophils 79.7 % (42.0-75.0); Hemoglobin 13.1 g/dL (14.0-18.0); Mean Corpuscular HGB CONC 31.8 g/dL (32.0-36.0); Mean Corpuscular Hemoglobin 29.4 pg (27.0-31.0); Mean Corpuscular Volume 92.3 fL (78.0-98.0); Mean Platelet Volume 7.7 fL (7.4-10.4); Platelet Count 228 thou/uL (130-400); RBC Distribution Width 14.7 % (11.5-14.5); Red Blood Cell (RBC) Count 4.47 mill/uL (4.70-6.10); White Blood Cell (WBC) Count 10.2 thou/uL (4.8-10.8)
[2018-11-23 09:28] LABS: Anion Gap 15 mmol/L (10-20); BUN (Urea Nitrogen) 21 mg/dL (8.4-25.7); Calc. Creatinine Clearance 76 mL/min (70-130); Calcium 8.8 mg/dL (7.8-10.44); Carbon Dioxide 34 mmol/L (23-31); Chloride 77 mmol/L (98-107); Estimated GFR-MDRD Greater than 90; Glucose 93 mg/dL (83-110); Potassium 4.1 mmol/L (3.5-5.1); Sodium 122 mmol/L (136-145)
[2018-11-23] MEDS: Tamsulosin HCl 0.4 MG CAP PO SCH (10:17)
[2018-11-23] MEDS: Famotidine 20 MG TAB PO SCH (10:18)
[2018-11-23] MEDS: Aspirin 81 mg Enteric Coated Tablet PO SCH (10:18)
[2018-11-23] MEDS: Furosemide 20 MG TAB PO SCH ×2 (10:22→14:09)
--- NOTE | 2018-11-23 12:14 | PDOC.HOSPP ---
- Subjective Encounter Date: 11/23/18 Encounter Time: 07:00 Subjective: Patient seen and examined. No new complaints. No overnight events - Objective Vital Signs & Weight: Vital Signs (12 hours) Temp Pulse Resp BP Pulse Ox 11/23/18 10:22 82 11/23/18 08:45 97.9 F 82 20 107/55 L 92 L 11/23/18 07:50 64 18 92 L 11/23/18 02:02 93 L Weight Admit Weight 205 lb 0.478 oz Weight 185 lb 6 oz Most Recent Monitor Data NIBP 128/111 NIBP BP-Mean 116 SpO2 91 I&O: 11/22/18 11/23/18 11/24/18 06:59 06:59 06:59 Intake Total 490 Output Total 1975 Balance -1485 Result Diagrams: 11/23/18 08:59 11/23/18 08:59 ROS - Review of Systems Constitutional: reports: weakness. denies: fever, chills, sweats, malaise, other ENT: denies: ear pain, ear discharge, nose pain, nose discharge, nose congestion , mouth pain, mouth swelling, throat pain, throat swelling, other Respiratory: reports: cough, shortness of breath. denies: dry, hemoptysis, SOB with excertion, pleuritic pain, sputum, wheezing, other Cardiovascular: denies: chest pain, palpitations, orthopnea, paroxysmal noc. dyspnea, edema, light headedness, other Gastrointestinal: denies: nausea, vomitting, abdominal pain, diarrhea, constipation, melena, hematochezia, other Genitourinary: denies: dysuria, frequency, incontinence, hematuria, retention, other Musculoskeletal: denies: neck pain, shoulder pain, arm pain, back pain, hand pain, leg pain, foot pain, other Skin: denies: rash, lesions, maryjo, bruising, other - Medication Medications: Active Medications Generic Name Dose Route Start Last Admin Trade Name Freq PRN Reason Stop Dose Admin Albuterol/Ipratropium 3 ml 11/12/18 04:17 11/18/18 08:58 Duoneb NEB 3 ml [id number] PRN Administration SOB &/or Wheezing Albuterol/Ipratropium 3 ml 11/21/18 13:00 11/23/18 07:50 Duoneb NEB 3 ml [id number] FREDY Administration Apixaban 5 mg 11/12/18 09:00 11/22/18 09:53 Eliquis PO 5 mg Q2DAYS FREDY Administration Aspirin 81 mg 11/12/18 09:00 11/23/18 10:18 Ecotrin PO 81 mg DAILY FREDY Administration Famotidine 20 mg 11/12/18 09:00 11/23/18 10:18 Pepcid PO 20 mg BID FREDY Administration Furosemide 20 mg 11/23/18 09:00 11/23/18 10:22 Lasix PO Not Given 0900,1400 FREDY Lisinopril 2.5 mg 11/23/18 09:00 11/23/18 10:22 Zestril PO Not Given DAILY [facility] Ondansetron HCl 4 mg 11/17/18 23:00 11/21/18 10:04 Zofran IVP 4 mg Q6H PRN Administration Nausea/Vomiting Rosuvastatin Calcium 10 mg 11/12/18 21:00 11/22/18 20:44 Crestor PO 10 mg QPM FREDY Administration Scopolamine 3 mg 11/22/18 10:45 11/22/18 12:56 Transderm Scop TD 3 mg Q3D FREDY Administration Sodium Chloride 10 ml 11/16/18 09:00 11/23/18 10:18 Flush - Normal Saline IVF 10 ml Q12HR FREDY Administration Sodium Chloride 10 ml 11/16/18 02:26 11/21/18 06:51 Flush - Normal Saline IVF 10 ml PRN PRN Administration Saline Flush Tamsulosin HCl 0.4 mg 11/12/18 09:00 11/23/18 10:17 Flomax PO 0.4 mg DAILY FREDY Administration - Exam NAD, awake alert Eye: PERRL, anicteric sclera ENT: normocephalic atraumatic, no oropharyngeal lesions Neck: supple, symmetric Heart: RRR, no murmur, no gallops Respiratory: no wheezes, no rales Respiratory - other findings: coarse sound Gastrointestinal: soft, non-tender, non-distended Extremities: no cyanosis, no clubbing, no edema Skin: normal turgor, no lesions, no rashes Neurological: CN's grossly intact, normal sensation to touch, no focal deficits Musculoskeletal: normal tone, normal strength Psychiatric: normal affect, normal behavior Hosp A/P (1) CAD (coronary artery disease) Code(s): I25.10 - ATHSCL HEART DISEASE OF [place] CORONARY ARTERY W/O ANG PCTRS Status: Chronic Qualifiers: Coronary Disease-Associated Artery/Lesion type: [place] artery [place] vs. transplanted heart: [place] heart Associated angina: without angina Qualified Code(s): I25.10 - Atherosclerotic heart disease of [place] coronary artery without angina pectoris (2) COPD (chronic obstructive pulmonary disease) Status: Chronic Qualifiers: COPD type: unspecified COPD Qualified Code(s): J44.9 - Chronic obstructive pulmonary disease, unspecified (3) Chronic atrial fibrillation Code(s): I48.2 - CHRONIC ATRIAL FIBRILLATION Status: Chronic (4) HTN (hypertension) Code(s): I10 - ESSENTIAL (PRIMARY) HYPERTENSION Status: Chronic Qualifiers: Hypertension type: essential hypertension Qualified Code(s): I10 - Essential (primary) hypertension (5) COPD exacerbation Code(s): J44.1 - CHRONIC OBSTRUCTIVE PULMONARY DISEASE W (ACUTE) EXACERBATION Status: Acute (6) Physical deconditioning Code(s): R53.81 - OTHER [place]AISE Status: Acute (7) Pleural effusion Code(s): J90 - PLEURAL EFFUSION, NOT ELSEWHERE CLASSIFIED Status: Acute - Plan old records reviewed/req, social service director at this [facility] he is stable overall medically will add lisinopril 2.5 mg po daily will add coreg 3.125 mg po bid DC amlodipine add PO lasix discharge planning in progress medication reviewed as above symptomatic treatment
--- NOTE | 2018-11-23 12:22 | PRG ---
DATE OF SERVICE: 11/23/2018 SUBJECTIVE: This morning, he is awake, alert, and responsive. OBJECTIVE: VITAL SIGNS: Saturations are 92% on 2 L, respiratory rate 20, temperature 97, and blood pressure is 107/55. I's and O's are still negative. CHEST: Decreased breath sounds. No wheezing. CARDIAC: Normal S1 and S2. No gallops. ABDOMEN: No masses. LABORATORY DATA: Sodium 122, chloride 77. White count 10,000. IMPRESSION: Congestive heart failure, hypertension, hyponatremia. I would avoid giving him any diuretics until his sodium is improved and blood pressure is resolved. His EF is 45% to 50%. Job ID: [id number]
--- NOTE | 2018-11-23 13:24 | DIS ---
DATE OF ADMISSION: 11/12/2018 DATE OF DISCHARGE: 11/23/2018 PRIMARY CARE PHYSICIAN: Sondra Levy MD DISCHARGE DISPOSITION: Inpatient hospice facility for symptomatic management and comfort care. PRIMARY DISCHARGE DIAGNOSES: 1. [id number] systolic and diastolic congestive heart failure, stage C. 2. Chronic obstructive pulmonary disease exacerbation. 3. Fracture of rib on left side. 4. Hyponatremia. 5. Pleural effusion, status post thoracentesis. SECONDARY DISCHARGE DIAGNOSES: 1. Moderate mitral regurgitation. 2. Hypertension. 3. Dyslipidemia. 4. Chronic obstructive pulmonary disease. 5. Systolic and diastolic heart failure. 6. Chronic atrial fibrillation, chronic anticoagulation. 7. Coronary artery disease. 8. Benign enlargement of prostate. 9. Physical deconditioning. PRIMARY PROCEDURES/OPERATIONS: Thoracentesis, radiological investigation, and several chest x-rays while in hospital. SIGNIFICANT LABORATORY DATA: WBC 10.2, hemoglobin 13.1, platelet 228. Sodium 122, potassium 4.1, BUN 21, creatinine 0.80, calcium 8.8. Troponin 0.087. TSH 2.24. Urinalysis, unremarkable. Pleural fluid consistent with transudative fluid, culture negative. DISCHARGE MEDICATIONS: The patient is discharged to inpatient hospice for comfort care. The patient will continue below-mentioned medications if appropriate from hospice perspective: 1. Eliquis 5 mg p.o. every other day. 2. Aspirin 81 mg daily. 3. Crestor 10 mg daily. 4. Flomax 0.4 mg daily. 5. Breo Ellipta inhalation daily. 6. DuoNeb q.4 hourly. 7. Coreg 3.125 mg p.o. b.i.d. 8. Pepcid 20 mg p.o. b.i.d. 9. Lasix 20 mg p.o. b.i.d. 10. Lisinopril 2.5 mg p.o. daily. 11. Scopolamine patch every other day. 12. Tramadol 50 mg q.6 hourly p.r.n. CONTRAINDICATION: None. CODE STATUS: DNR. INPATIENT DATABASE MARKETING ANALYST: Pulmonary group was following while in hospital. Palliative Care group was consulted while in hospital. TEST RESULTS PENDING ON DISCHARGE: None. ALLERGIES: NO KNOWN DRUG ALLERGIES. DISCHARGE PLAN: Posthospital, the patient will be discharged to inpatient hospice facility for comfort care. HOSPITAL COURSE: An 88-year-old male, who was admitted by Dr. Ruiz on November 12, 2018. Please see his H and P for further detail. On admission, the patient was admitted for increasing shortness of breath. He was having both combined CHF and COPD exacerbation. He was admitted to the hospital. He required IMCU admission. He was treated aggressively for both CHF and COPD. His condition was stabilized. He was transferred to medical floor. He was made DNR while in hospital with family's request. The patient was not having significant improvement, and that is why family member agreed with comfort care. Palliative Care was consulted, and family agreed with hospice evaluation. [facility] agreed to take care of him at hospice facility for symptom management. This patient is not terminal, but he needs symptom management, and the family member also wants his symptoms to be controlled, and that is why we are transferring him to inpatient hospice facility. Above-mentioned medications are adjusted, and he will continue at hospice facility if Hospice Team agrees. I have seen and examined the patient at bedside today. Please see my progress note from today for further detail. Job ID: [id number]
[2018-11-23] MEDS ORDERED: Carvedilol 3.125 MG TAB PO SCH (17:00)
--- NOTE | 2018-11-27 10:16 | PQF ---
ERUM AGUIRRE SALIM NOORJIBHAI MD [id number] CLINICAL DOCUMENTATION CLARIFICATION FORM: POST DISCHARGE Addendum to original discharge summary date: ____ Late entry note date: __ DATE: 11-27-18 ATTN:Stefania Fisher Please exercise your independent, professional judgment in responding to the clarification form. Clinical indicators are provided on the bottom of this form for your review Can you please specify Acute on chronic hypoxemic respiratory failure is ruled in or ruled out during this encounter? Please check appropriate box(s) to clarify if the following diagnosis has been ruled in or ruled out: Acute on chronic hypoxemic respiratory failure [ x ] Ruled in diagnosis [ x ] Continue to treat [ ] Resolved [ ] Ruled out diagnosis [ ] Cannot rule out diagnosis [ ] Other diagnosis please specify: [ ] Unable to determine For continuity of documentation, please document condition throughout progress notes and discharge summary. Thank You. CLINICAL INDICATORS: ED 11/12 pg 11 Primary Diagnosis: Acute hypoxia with COPD exacerbation H&P 11/[address] Ruiz Chief complaint: Shortness of breath H&P 11/[address] Ruiz Acute on chronic hypoxic respiratory failure H&P 11/[address] Ruiz COPD with acute bronchitis with production of discolored sputum Event Note 11/[address] Wallis No pneumothorax post thoracentesis. ABG- compensated resp failure, patient comfortable DS 11/[address] Cole Pleural Effusion, status post thoracentesis ED 11/12 O2 Sat=96 on 2L, 95 on 2 L Oxygen, 95 on room air Blood Gas 11/12 ABG Pc02=56.2 H, VSYr91=09.9 L, ABG hemoglobin=13.1L Event Note 11/18 Dr. Garcia - Patient had a brief dip in O2 sat into the 70s PN Palliative 11/22 Dr. Arreguin - mildly labored respirations RISK FACTOR: H&P 11/12 Dr. Ruiz- COPD H&P 11/12 Dr. Ruiz- Oxygen Dependence H&P 11/12 Dr. Ruiz- Tobacco abuse H&P 11/12 Dr. Ruiz- 88 years old male H&P 11/12 Dr. Ruiz- acute bronchitis DS 11/23 Dr. Cole Fracture of left rib TREATMENTS: Imaging 11/17- Chest Xray Thoracentesis 11/21 Oxygen Therapy JUN 08- Ventolin 3ml Neb JUN 08-Douneb 3ml Neb JUN 08 Dexamethasone 10 mg IV Laboratory blood gas - ABG monitoring (This form is maintained as a part of the permanent medical record) 2014 [employer]. All Rights Reserved Verónica [email or web address] [not provided] [email or web address]
== END 2018-11-23 17:04 | disposition hospice, inpatient (51) | DRG 291 ==
LOC: ERS 23:11 → IMCU/EMU 11-12 01:48 → ONC 11-14 08:17
PROVIDERS: ADMIT Internal Medicine; ATTEND Internal Medicine
PROC: 0W9B3ZZ Drainage of Left Pleural Cavity, Percutaneous Approach (ICD-10-PCS; principal; 2018-11-12)
DX: I11.0 Hypertensive heart disease with heart failure (principal); J96.21 Acute and chronic respiratory failure with hypoxia; S22.32XA Fracture of one rib, left side, initial encounter for closed fracture; J44.0 Chronic obstructive pulmonary disease with (acute) lower respiratory infection; E87.1 Hypo-osmolality and hyponatremia; I24.8 Other forms of acute ischemic heart disease; J44.1 Chronic obstructive pulmonary disease with (acute) exacerbation; J91.8 Pleural effusion in other conditions classified elsewhere; Z66 Do not resuscitate; Z51.5 Encounter for palliative care; I50.43 Acute on chronic combined systolic (congestive) and diastolic (congestive) heart failure; I42.9 Cardiomyopathy, unspecified; I25.10 Atherosclerotic heart disease of native coronary artery without angina pectoris; N40.0 Benign prostatic hyperplasia without lower urinary tract symptoms; E78.5 Hyperlipidemia, unspecified; I48.2 Chronic atrial fibrillation; F17.210 Nicotine dependence, cigarettes, uncomplicated; J20.9 Acute bronchitis, unspecified; R00.1 Bradycardia, unspecified; I34.0 Nonrheumatic mitral (valve) insufficiency; E66.01 Morbid (severe) obesity due to excess calories; Z79.82 Long term (current) use of aspirin; Z95.818 Presence of other cardiac implants and grafts; Z99.81 Dependence on supplemental oxygen; Z68.30 Body mass index [BMI] 30.0-30.9, adult; Z79.01 Long term (current) use of anticoagulants; Z79.899 Other long term (current) drug therapy; T50.1X5A Adverse effect of loop [high-ceiling] diuretics, initial encounter
CPT/HCPCS: 36415; 71045; 71046; 80048; 80053; 81001; 82150; 82533; 82550; 82553; 82805; 82945; 83605; 83615; 83690; 83735; 83880; 83935; 83986; 84100; 84145; 84157; 84300; 84443; 84478; 84484; 85025; 85060; 87070; 87086; 87116; 87205; 87206; 88112; 88305; 89051; 93005; 93010; 93798; 94640; 94644; 96365; 96367; 96375; J1100; J1200; J1642; J1940; J1956; J2405; J2920; J3475; J7512; J7611; J7620; P9045